=== PATIENT | female | born 1980 | race Hispanic/Latino ===

== ENCOUNTER 2021-09-29 17:48 | Outpatient (CLI) | payer MEDICAID, SELFPAY ==
--- NOTE | 2021-09-29 17:57 | CT_ITS ---
STUDY: CT Abdomen And Pelvis WO/W Contrast Injection 09/29/2021 8:21 PM REASON FOR EXAM: Female, 41 years old. Frequent urination, left flank pain when urinating.PAIN HEMATURIA TECHNIQUE: Transaxial images were obtained without oral contrast, and IV 100mL Isovue-300 intravenous contrast. Individualized dose optimization techniques were used for this CT. COMPARISON: None. FINDINGS: The visualized lung bases are unremarkable. The visualized portions of the heart are within normal limits. Normal liver. Normal gallbladder and extrahepatic biliary system. Normal spleen. Normal pancreas. Normal bilateral adrenal glands. No acute findings of the right kidney. No acute findings of the left kidney. Normal visualized stomach. Normal small intestine. Stool throughout the colon. The appendix is visualized and appears normal. There are no acute findings of the abdominal aorta. Normal inferior vena cava. Subcentimeter mesenteric lymph nodes. There is a dilated left ovarian vein with diffuse varicosities. This can suggest pelvic venous congestion syndrome. There are varices overlying the left ovarian vein may represent pelvic venous congestion syndrome. Normal urinary bladder. Fibroid uterus. Normal abdominal wall. Normal osseous structures. IMPRESSION: (NOT LISTED IN ORDER OF SIGNIFICANCE) Fibroid uterus. There is a dilated left ovarian vein with diffuse varicosities. This can suggest pelvic venous congestion syndrome. Other findings as above. Electronically Signed: Ramu Wellington MD at 20:23 [facility] , CT/CT Abd/Pelvis W/WO Contrast
== END 2021-09-29 23:59 | disposition home or self-care (01) ==
LOC: CT 17:51
PROVIDERS: PCP Nurse Practitioner; Visit Provider Urology
DX: R31.9 Hematuria, unspecified (principal); R10.2 Pelvic and perineal pain
CPT/HCPCS: 74178; Q9967

== ENCOUNTER 2023-02-04 10:52 | Emergency (ER) | payer MEDICAID, SELFPAY ==
[2023-02-04 10:52] VITALS: BP 138/82; PULSE 73; RESP 16; TEMP 36.3; O2SAT 98; BMI 24.7
--- NOTE | 2023-02-04 11:30 | EX.ED.UPPERE ---
HPI <SARAH Sexton - Last Filed: 02/04/23 19:51> History of Present Illness Chief Complaint: Upper Extremity Injury Narrative Narrative: Patient presenting today due to left shoulder pain that she has had for the past 2 months. 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 She reports that at times the pain radiates down her left arm and she has intermittent tingling in her L fingers. She has not seen a provider for this and has not had any imaging done. She has been taking ibuprofen with minimal relief. She denies any injury to the L upper extremity. She denies any history of blood clots. PFSH <SARAH Sexton - Last Filed: 02/04/23 19:51> [facility] Medical History no medical history Home Medications hydrocodone-acetaminophen 5-325mg 5mg-325mg 1 tab PO Q4H PRN PRN Pain 3 days #10 TABLETS 02/04/23 [Rx Last Taken Unknown] Allergy/AdvReac Type Severity Reaction Status Date / Time No Known Allergies Allergy Verified 02/04/23 10:53 Social History Smoking Status: Never smoker ROS <SARAH Sexton - Last Filed: 02/04/23 19:51> ROS ED Constitutional Constitutional ED: Denies chills or fever(s) Cardiovascular Cardiovascular: Denies chest pain Respiratory/Chest Respiratory/Chest: Denies cough or dyspnea Gastrointestinal Gastrointestinal: Denies abdominal pain, nausea or vomiting Musculoskeletal Musculoskeletal: Reports arthralgias and myalgias Integumentary Denies rash Neurologic Neurologic: Reports paresthesias; Denies weakness EXAM <SARAH Sexton - Last Filed: 02/04/23 19:51> Physical Exam Const Vital Signs: 02/04/23 10:52 Temperature 97.4 F L Temperature Source Temporal Pulse Rate 73 Respiratory Rate 16 Blood Pressure 138/82 H Blood Pressure Mean 100 Pulse Ox 98 Oxygen Delivery Method Room Air Positive well nourished, well developed and no apparent distress General Appearance ED: well developed HEENT Reports normocephalic and head/scalp atraumatic Mouth ED: Yes moist mucous membranes normal Eyes PERRL and EOMs intact bilaterally Neck full ROM and supple Chest Wall inspection of chest normal Resp normal respiratory effort and clear to auscultation bilaterally Cardio regular rate and regular rhythm GI soft to palpation, non-tender, non-distended and no masses Back/Spine normal ROM and normal to inspection Extremity normal to inspection and full ROM Extremity Narrative: Generalized pain to palpation to the left shoulder, radial pulses 2+ and equal bilaterally, good capillary refill, sensation intact. Neuro oriented x3, CN's II-XII intact bilaterally, moves all extremities, no focal motor deficits and no sensory deficits noted Sensorium / Orientation: awake and alert Motor Exam: strength 5/5 throughout Psych mental status grossly normal and thought process normal Skin no rashes or lesions noted and no wounds [facility] <SARAH Sexton - Last Filed: 02/04/23 19:51> [facility] Narrative Medical decision making narrative: Patient presenting with left shoulder pain that she has had for the past 2 months. Denies any injury that she is aware of. She has not yet seen a provider for this issue and has not had any imaging performed. X-ray obtained and does not show any fracture or dislocation. Examination is suspicious for rotator cuff involvement, bursitis. She has been given a orthopedic follow-up as well as a short duration of pain medication. She has been given RICE instructions and work restrictions. She will be discharged home in stable condition and is comfortable with plan <Dr. Best Arriaga MD - Last Filed: 02/04/23 12:26> [facility] Treatment and Re-Evaluation Narrative: Seen and evaluated independently and in conjunction with physician criminal legal assistant. Agree with notes above unless documented otherwise. Patient has had pain in her left shoulder for the past 2 months progressively worsening. She is left-hand dominant. She thinks it started while she was doing some heavy lifting. Pain is everywhere in the left shoulder. Overhead movements are the worst. Exam: Normal inspection left shoulder, neurovascular intact distally with some subjective paresthesias in fingers 2, 3, 4. Subacromial tenderness as well as tenderness in the bicipital groove with a positive Yergason. She has pain with every movement including internal rotation, external rotation, forward flexion with a positive speeds sign, and abduction which she can do to about 45 degrees until she has to stop. Good range in short arcs, no excessive warmth. No bony tenderness. Three-view x-ray series of the left shoulder my interpretation negative for any acute bony abnormality, fracture, dislocation. Difficult to rule out impingement syndrome, bicipital tendinitis, possibility of rotator cuff involvement in the differential as well. Follow-up with orthopedics advised. We will give her prescription for pain medications, advised to continue anti-inflammatories and icing, and follow-up with orthopedics. Sling given to use as needed as well as work restrictions for lifting. Discharge Plan Triage Chief Complaint: Upper Extremity Injury ED Midlevel Provider: Mary Odonnell ED Provider: Best Arriaga Dx/Rx/DC Orders Clinical Impression: Left shoulder pain Instructions: ED Bursitis, ED Shoulder Impingement Syndrome Prescriptions: New hydrocodone-acetaminophen 5-325 mg tablet 1 tab PO Q4H PRN PRN (Reason: Pain) 3 Days Qty: 10 0RF Primary Care Provider: Dayton Luke Referrals: Kaley Smith MD [Non-Staff] - Jluis Garcia MD [Med Staff - Active Staff] - 5-7 Days Activity Restrictions/Additional Instructions: Use sling as needed, follow-up with the orthopedic provider I referred you to. Return for any worsening of symptoms. Disposition Disposition: Home, Self Care Discharge Date/Time: 02/04/23 12:35
--- NOTE | 2023-02-04 11:32 | RAD_ITS ---
INDICATION: shoulder pain EXAMINATION/TECHNIQUE: X-RAY - LEFT XR Shoulder 4 VIEWS COMPARISON: FINDINGS: SOFT TISSUES: No soft tissue swelling or gas. No radiopaque foreign body. BONES/JOINTS: No acute fracture or subluxation.. Normal alignment. Preservation of the joint space.. No sclerotic or destructive changes observed. RAD/Shoulder min 2 Views IMPRESSION: Negative. Electronically Signed: Yakelin Gupta MD at 12:33 EDT ,
== END 2023-02-04 12:35 | disposition home or self-care (01) ==
PROVIDERS: Emergency Provider Emergency Medicine; PCP Family Medicine; Visit Provider Emergency Medicine
DX: M25.512 Pain in left shoulder (principal); X50.0XXA Overexertion from strenuous movement or load, initial encounter; Y92.129 Unspecified place in nursing home as the place of occurrence of the external cause
CPT/HCPCS: 73030; 99282; A4216

== ENCOUNTER 2025-04-02 06:05 | Day surgery (SDC) | payer MEDICAID, SELFPAY ==
[2025-04-02] VITALS (10 sets, daily range): BP systolic 94–110; BP diastolic 64–73; PULSE 61–68; RESP 16; TEMP 36.1–36.8; O2SAT 92–99; BMI 26.1
--- OUTSIDE RECORDS SUMMARY | 2025-04-02 06:10 | XMS RPT_ITS | CCD ---
Author Organization [facility]ini[facility] Care Team Providers Care Food Safety Technician Name Role Phone Dayton Bhatia MD Primary Care Provider [phone] DAYTON BHATIA Primary Care Unavailable JONAH ONEAL Attending Unavailable LISA BERMUDEZ Attending Unavailable DAYTON BHATIA Primary Care Unavailable Dayton Bhatia MD Primary Care Provider Dayton Bhatia MD Primary Care Provider [phone] STEPHANE SANDOVAL Referring Unavailable DAYTON BHATIA Primary Care Unavailable STEPHANE SANDOVAL Referring Unavailable DAYTON BHATIA Primary Care Unavailable Carine YEE, Joycelyn Unavailable Dana Mcdowell PA-C Unavailable DAYTON BHATIA Primary Care Unavailable Joycelyn Hawk APRN.CNP Unavailable Dana Mcdowell PA-C Unavailable Dr. Dayton Bhatia MD Primary Care Provider Dr. Dayton Bhatia MD Referring Provider Denny KWONGCDahlia Attending Provider Dahlia Baldwin Attending Unavailable Dayton Bhatia Referring Unavailable Dyaton Bhatia Primary Care Unavailable Angie Blackwell Attending Unavailable Dayton Bhatia Primary Care Unavailable Angie Blackwell Referring Unavailable VITA WAHL Referring Unavailable DAYTON BHATIA A Primary Care Unavailable DAYTON BHATIA A Primary Care Unavailable DAYTON BHATIA Referring Unavailable DAYTON BHATIA A Primary Care Unavailable VITA WAHL Attending Unavailable VITA WAHL Referring Unavailable ANGIE BLACKWELL Attending Unavailable DAYTON BHATIA A Primary Care Unavailable DANA MCDOWELL Attending Unavailable DAYTON BHATIA Primary Care Unavailable DANA MCDOWELL Referring Unavailable DAYTON BHATIA Primary Care Unavailable DANA MCDOWELL Referring Unavailable DAYTON BHATIA Primary Care Unavailable DAYTON BHATIA Primary Care Unavailable ANGIE BLACKWELL Attending Unavailable DANA MCDOWELL Attending Unavailable DAYTON BHATIA Primary Care Unavailable DAYTON BHATIA Primary Care Unavailable DAYTON BHATIA Primary Care Unavailable VITA WAHL Attending Unavailable Allergies Allergy Classification Reported Allergen(s) Allergy Type Date of Onset Reaction(s) Facility (20 sources) meloxicam; Translations: [MELOXICAM] Drug Allergy 2 Swelling, Itching [facility] Work Phone: Comment on above: SWELLING AND ITCHING (20 sources) Naproxen; Translations: [NAPROXEN] Drug Allergy 2 Hives, Swelling, Shortness of Breath [facility] Work Phone: Comment on above: FACIAL SWELLING AND SOB (1 source) meloxicam Drug Allergy 5 [facility] (1 source) Naproxen Drug Allergy 5 [facility] Medications Current Medications Medication Drug Class(es) Dates Sig (Normalized) Sig (Original) ibuprofen 200 mg oral capsule (19 sources) Nonsteroidal Anti-inflammatory Drug Start: 03-23-2025 take 1 capsule by mouth every eight hours as needed for pain Ibuprofen 200 mg capsule Active 200 mg PO Q8H as needed for pain March 23, 2025 12:00am End: 07-30-2023 Ibuprofen 200 mg cap Take by mouth every 6 hours as needed. 0 07/30/2023 Discontinued Comment on above: Take by mouth every 6 hours as needed. metroNIDAZOLE 500 mg oral tablet (2 sources) Nitroimidazole Antimicrobial Start: 02-13-20 End: 02-20-20 take 1 tablet by mouth twice daily metroNIDAZOLE (FLAGYL) 500 mg tablet Indications: BV (bacterial vaginosis) Take 1 tablet by mouth twice daily for 7 days. 14 tablet 0 02/12/2023 02/19/2023 Active Start: 11-08-2021 End: 11-15-2021 take 1 tablet by mouth twice daily metroNIDAZOLE (FLAGYL) 500 mg tablet Take 1 tablet by mouth twice daily for 7 days. 14 tablet 0 11/08/2021 11/15/2021 Comment on above: Take 1 tablet by marii th twice daily for 7 days. predniSONE 20 mg oral tablet (1 source) Start: 03-30-2025 End: 04-02-2025 take 2 tablets by mouth once daily at mealtime predniSONE (DELTASONE) 20 mg tablet Take 2 tablets by mouth once daily for 3 days. Take daily with food. 6 tablet 03/30/2025 04/02/2025 Active Completed/Discontinued Medications Medication Drug Class(es) Dates Sig (Normalized) Sig (Original) acetaminophen 325 mg / HYDROcodone bitartrate 5 mg oral tablet (2 sources) Opioid Agonist Start: 02-04-2023 End: 03-23-2025 Hydrocodone-Acetami nophen 5-325 mg tablet Discontinued 1 {tbl} PO EVERY 4 HOURS NEEDED as needed for Pain 10 3 0 February 04, 2023 March 23, 2025 10:54am Shoulder pain Pain in unspecified shoulder Start: 02-04-2023 take 1 tablet by marii th every four hours as needed Hydrocodone-Acetaminophen Active 1 TABLE T PO EVERY 4 HOURS NEEDED 10 3 February 04, 2023 Acetaminophen / pamabrom (20 sources) End: 06-08-2023 acetaminophen/pamabrom (MIDO L ORAL) Take by mouth as directed. 06/08/2023 Discontinued End: 06-08-2023 acetaminophen/pamabrom (MIDO L ORAL) Take by mouth as directed. 0 06/08/2023 Discontinued acetaminophen/pa mabrom (MIDOL ORAL) Take by mouth as directed. 0 Active Comment on above: Take by mouth as dir ected. acetaminophen/pyrilam /pamabrom (PAMPRIN MULTI-SYMPTOM ORAL) (20 sources) End: 07-30-2023 acetaminophen/pyrilam/gustabo abrom (PAMPRIN MULTI-SYMPTOM ORAL) Take by mouth. 0 07/30/2023 Discontinued acetaminophen/py rilam/pamabrom (PAMPRIN MULTI-SYMPTOM ORAL) Take by mouth. 0 Active Comment on above: Take by mouth. cephalexin 500 mg oral capsule (2 sources) Cephalosporin Antibacterial Start: End: take 1 capsule by mouth four times daily cephALEXin (KEFLEX) 500 mg capsule Indications: Vulvar cyst Take 1 capsule by mouth four times daily for 7 days. 28 capsule 07/31/2024 08/07/2024 cholecalciferol 0.05 mg oral capsule (20 sources) Vitamin D Start: 024 End: 025 take 1 capsule by mouth once daily Cholecalciferol, Vitamin D3, 50 mcg (2,000 unit) cap Take 1 capsule by mouth once daily. 11/29/2023 03/16/2025 Discontinued Comment on above: Take 1 capsule by mo uth once daily. cyclobenzaprine hydrochloride 10 mg oral tablet (1 source) Muscle Relaxant Start: 021 End: take 1 tablet by mouth every eight hours as needed cyclobenzaprine (FLEXERIL) 10 mg tablet Take 1 tablet by mouth three times daily as needed for muscle spasm. 30 tablet 05/18/2021 07/07/2021 Discontinued (Course of therapy completed) L.acidophilus-L.rhamno isabel (FLORAJEN WOMEN) 15 billion cell capsule (14 sources) Start: 023 End: take 1 capsule by mouth once daily L.acidophilus-L.rhamno isabel (FLORAJEN WOMEN) 15 billion cell capsule Indications: BV (bacterial vaginosis) Take 1 capsule by mouth once daily. 30 capsule 3 02/09/2023 07/30/2023 Discontinued Start: 02-09-2023 take 1 capsule by mo uth once daily L.acidophilus-L.rhamnosus (FLORAJEN WOME N) 15 billion cell capsule Indications: BV (bacterial vaginosis) Take 1 capsule by mouth once daily. 30 capsule 3 02/09/2023 Active Comment on above: Take 1 capsule by mo uth once daily. linaclotide 0.145 mg oral capsule (20 sources) Guanylate Cyclase-C Agonist Start: End: take 1 capsule by mouth once daily linaclotide (LINZESS) 145 mcg capsule Indications: Chronic constipation Take 1 capsule by mouth once daily. 30 capsule 2 06/27/2021 07/30/2023 Discontinued Start: 05-18-2021 End: 06-13-2021 take 1 capsule by mouth once daily, then take 6 capsules by mouth in the morning linaclotide (LINZESS) 145 mcg capsule Take 1 capsule by mouth DAILY (6 AM). 30 capsule 1 05/18/2021 06/13/2021 Discontinued Comment on above: Take 1 capsule by mo ut once daily. Problems Active Problems Problem Classification Problem Date Documented Da te Episodic/Chronic Administrative/social admission (8 sources) Patient encounter status; Translations: [Encounter for pre-employment examination] Onset: 03-28-2025 10-31-2021 Episodic Benign neoplasm of uterus (16 sources) Uterine leiomyoma; Translations: [Leiomyoma of uterus, unspecified] Onset: 08-07-2024 Episodic Diabetes mellitus without complication (2 sources) Increased glucose level; Translations: [Other abnormal glucose] Onset: 03-16-2025 03-16-2025 Episodic Endometriosis (1 source) Uterine adenomyosis; Translations: [Endometriosis of uterus] Chronic Genitourinary symptoms and ill-defined conditions (20 sources) Urgent desire to urinate; Translations: [Urgency of urination] Onset: 05-18-2021 05-18-2021 Episodic Immunizations and screening for infectious disease (20 sources) Positive measurement finding; Translations: [Nonspecific reaction to tuberculin skin test without active tuberculosis] Onset: 06-02-2023 06-02-2023 Episodic Inflammatory diseases of female pelvic organs (2 sources) Bacterial vaginosis; Translations: [Acute vaginitis] Episodic Malaise and fatigue (3 sources) Malaise and fatigue; Translations: [Other malaise] Onset: 03-16-2025 Episodic Menopausal disorders (7 sources) Postmenopausal bleeding; Translations: [Postmenopausal bleeding] Onset: 08-07-2024 07-31-2024 Chronic Menstrual disorders (1 source) Secondary amenorrhea; Translations: [Secondary amenorrhea] Chronic Other female genital disorders (2 sources) Abnormal uterine bleeding; Translations: [Other specified abnormal uterine and vaginal bleeding] Chronic Other female genital disorders (1 source) Deep pain on intercourse; Translations: [Deep dyspareunia] Chronic Other female genital disorders (20 sources) Pain in female genitalia on intercourse; Translations: [Unspecified dyspareunia] Onset: 08-14-2023 08-14-2023 Chronic Other female genital disorders (2 sources) Abnormal vaginal bleeding; Translations: [Abnormal uterine and vaginal bleeding, unspecified] 03-16-2025 Chronic Other female genital disorders (1 source) Abnormal uterine and vaginal bleeding, unspecified; Translations: [Abnormal vaginal bleeding] Onset: 03-16-2025 Chronic Other female genital disorders (1 source) Cyst of vulva; Translations: [Vulvar cyst] 07-31-2024 Episodic Other gastrointestinal disorders (20 sources) Constipation; Translations: [Other constipation] 07-19-2021 Episodic Other non-traumatic joint disorders (2 sources) Shoulder pain; Translations: [Pain in unspecified shoulder] 02-04-2023 Episodic Other non-traumatic joint disorders (2 sources) Pain in left shoulder; Translations: [Left shoulder pain] 02-04-2023 Episodic Other nutritional; endocrine; and metabolic disorders (1 source) Unintentional weight gain; Translations: [Abnormal weight gain] Episodic Other nutritional; endocrine; and metabolic disorders (1 source) Weight gain; Translations: [Abnormal weight gain] 11-29-2023 Episodic Other nutritional; endocrine; and metabolic disorders (1 source) Weight increased; Translations: [Abnormal weight gain] 03-16-2025 Episodic Other nutritional; endocrine; and metabolic disorders (1 source) Abnormal weight gain; Translations: [Weight gain] Onset: 03-16-2025 Episodic Other screening for suspected conditions (not mental disorders or infectious disease) (20 sources) Increased prolactin level; Translations: [Other specified abnormal findings of blood chemistry] Onset: 05-18-2021 Episodic Poisoning by nonmedicinal substances (1 source) Wound finding; Translations: [Toxic effect of venom of other arthropod, accidental (unintentional), initial encounter] 03-30-2025 Episodic Residual codes; unclassified (3 sources) Family history of malignant neoplasm of ovary; Translations: [Family history of malignant neoplasm of ovary] Episodic Residual codes; unclassified (1 source) Family history of malignant neoplasm of ovary; Translations: [Family history of ovarian cancer] Onset: 01-01-2025 Episodic Screening and history of mental health and substance abuse codes (2 sources) Encounter for screening for depression; Translations: [Encounter for screening examination for other mental health and behavioral disorders] Onset: 03-16-2025 Episodic Unclassified (1 source) APPOINTMENT CANCELLED Unclassified (2 sources) Latent tuberculosis; Translations: [TB lung, latent] Onset: 11-29-2023 Unclassified (1 source) Patient encounter status 03-16-2025 Unclassified (1 source) Pre-Op Visit Onset: 03-27-2025 Past or Other Problems Problem Classification Problem Date Documented Date Episodic/Chronic Abdominal pain (20 sources) Pain in female pelvis; Translations: [Pelvic and perineal pain] Onset: 08-14-2023 Episodic Other diseases of bladder and urethra (20 sources) Urethral diverticulum; Translations: [Urethral diverticulum] Onset: 05-18-2021 05-18-2021 Episodic Other female genital disorders (10 sources) Cyst of uterine adnexa; Translations: [Other noninflammatory disorders of ovary, fallopian tube and broad ligament] Onset: 08-07-2024 08-07-2024 Episodic Other non-traumatic joint disorders (20 sources) Instability of joint of right ankle; Translations: [Other instability, right ankle] Onset: 04-26-2022 Episodic Sprains and strains (20 sources) Sprain of talofibular ligament of right ankle; Translations: [Sprain of other ligament of right ankle, initial encounter] Onset: 04-26-2022 Episodic Unclassified (1 source) Preprocedural examination done 03-30-2025 Results Test Name Value Interpretation Reference Range Facility [facility] 03-30-2025 [facility] Office [facility] ) FRANNY ZACARIAS ([id number]) 1980 F Date Time Provider Department 03/30/25 9:40 AM DANA MCDWOELL [facility] During your visit today, we recorded the following information about you: Temperature Pulse Respiration Blood pressure 98.9 degrees 63/minute 16/minute 112/76 Dana Mcdowell PA-C 03/30/2025 10:47 AM Signed Chief Complaint Patient presents with: Established Patient HPI Franny Zacarias is a 45 year old female who presents here today for ECG for preop. Patient was recently seen by myself for preop visit. During that exam, patient forgot to mention an episode of Dyspnea while walking her dog. She told nurse on phone call and I asked for patient to return so we can discuss. Patient reports that the episode occurred on the same day that she had donated blood earlier in the day. She has not had any recurrance since then. Denies CP or near syncopal episodes. TB Skin Test Reaction: - Diagnosed with latent TB a year ago; recent chest X-ray was normal. 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 - Developed severe itching immediately after the test, which worsened after a bee sting yesterday. The bee sting is is same area as the TB skin test - Denies taking Benadryl due to drowsiness side effects. - Describes the test site as really painful and tender to touch. - Denies cough or dyspnea. Anemia: - Recent hemoglobin levels noted to be low. - Experienced tingling in fingers after blood donation, leading to an ER visit. - No further episodes of dyspnea reported after the initial incident post-blood donation. Past medical history, appointments, medications, allergies reviewed. Previous Medical History PAST MEDICAL HISTORY[1] Previous Surgical History PAST SURGICAL HISTORY Procedure Laterality Date COLONOSCOPY SCREENING 08/2021 Family History FAMILY HISTORY[2] Patient Allergies ALLERGIES[3] Current Medications Meds Previous to this Encounter[4] Social History SOCIAL HISTORY[5] Review of Symptoms REVIEW OF SYSTEMS SEE HPI EXAM: BP 112/76 (BP Site: Right Arm, BP Position: Sitting, BP Cuff Size: Regular Adult) Pulse 63 Temp 37.2 ?C (98.9 ?F) (Left Tympanic) Resp 16 LMP 05/08/2022 SpO2 97% General Appearance: Well appearing, alert, in no acute distress, well-hydrated, well nourished.. Skin: +TB skin test reaction with surrounding swelling noted. Patient notes tenderness near site of the TB reaction.. Lungs: Lungs clear to auscultation. No wheezing, rhonchi, rales.. Heart: RRR without murmur, gallop, or rubs. No ectopy. Health Maintenance List Hepatitis C Screening Never done Colorectal Cancer Screening due on 01/22/2024 Mammogram Screening due on 03/24/2025 Influenza Vaccine(1) due on 04/20/2025 Depression Screening due on 03/16/2026 Anxiety Screening due on 03/16/2026 Diabetes Screening due on 03/16/2028 Cervical Cancer Screening due on 07/31/2029 Lipid Screening due on 03/16/2030 DTaP,Tdap,Td Vaccine(2 - Td or Tdap) due on 06/14/2033 Hepatitis B Vaccine Completed HIV Screening Completed Data reviewed ECG: NSR Assessment and Plan 1. Preop examination (Z01.818) 2. Fibroids, submucosal (D25.0) 3. Abnormal vaginal bleeding (N93.9) - EKG reviewed and found to be normal. - Mild anemia noted, but not significant enough to delay surgery. - Recent fatigue and dyspnea on exertion likely related to recent blood donation and baseline anemia. - Proceed with surgery as planned on the . 4. 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 - Recent PPD test performed for nursing school requirements; educated patient that PPD will always be positive due to known latent TB. - Advised patient to avoid future PPD tests and rely on chest X-ray for active TB screening. - Recommended follow-up with infectious disease specialist for annual check-in. 5. Local reaction to insect sting, accidental or unintentional, initial encounter (T63.481A) - Localized swelling and tenderness at the site of the PPD test, likely exacerbated by recent bee sting. - Start prednisone; advised to take Benadryl at home and monitor for improvement. - Advised to go to the ER if symptoms worsen or do not improve within 4-8 hours. - DDx includes abscess/cellulitis, but given history, suspect immune reaction. Dana Mcdowell PA-C Recording using Retrieve software for draft documentation of the visit was discussed with the patient/authorized factory representative; all questions welcomed and answered. Patient/authorized factory representative agreed to proceed [1] Past Medical History: No date: Other constipation 08/20/2001: Solitary cyst of breast Comment: right breast No date: TB lung, latent 05/18/2021: Urethral diverticulum Comment: Seeing ur (more content not included)... Normal [facility] [id number] 03-30-2025 ECG01 Ventricular Rate : 6 2 BPM Atrial Rate : 62 BPM P-R Interval : 146 ms QRS Duration : 96 ms Q-T Interval : 404 ms QTC Calculation(Bazett) : 410 ms Calculated P [place] : 7 degrees Calculated R [place] : -21 degrees Calculated T [place] : 3 degrees NORMAL SINUS RHYTHM LOW VOLTAGE QRS, CONSIDER PULMONARY DISEASE, PERICARDIAL EFFUSION, OR NORMAL VARIANT BORDERLINE ECG Confirmed by MD LOVE QARAB ([id number]) on 03/31/2025 9:53:13 AM NAME : FRANNY ZACARIAS PID : [id number] : 1980 Gender : Female Race : ORD : Procedure Date : Mar 30 2025 10:12:29 Edit Date : Mar 31 2025 09:53:14 Diagnosis: NORMAL SINUS RHYTHM LOW VOLTAGE QRS, CONSIDER PULMONARY DISEASE, PERICARDIAL EFFUSION, OR NORMAL VARIANT BORDERLINE ECG Confirmed by MD LOVE QARAB ([id number]) on 03/31/2025 9:53:13 AM Test Reason : Location : 136 : [place] Overread By : MD LOVE QARAB Edited By : MD LOVE QARAB Referred By : DANA MCDOWELL Acquired by : Walker Escobedo [facility] Office Visit Reporton 2024 Office Visit Report [facility] [address] [address] OFFICE VISIT Date of Service: 03/28/25 MR#: [id number] Acct: [id number] Patient: FRANNY ZACARIAS Rep #: [id number] : 1980 Provider: YAHAIRA Baldwin Age/Sex: 45/F Location: [facility] Status: Signed Intake Vital Signs 02/04/23 10:52 Height 5 ft 2 in Intake Visit Reasons: 1 STEP TB TEST Chief Complaint: ppd Is patient in pain?: No Allergies meloxicam Allergy (Intermediate, Verified 03/28/25 08:50) Other naproxen (From Naprosyn) Allergy (Intermediate, Verified 03/28/25 08:50) Other Office Procedures PPD Procedure TB Med Used: Tuberculin PPD 5 tub. unit/0.1 mL intradermal injection solution was administered Lot number: [id number] Bleacher Operator: sanofi pasteur date: 09/20/27 PPD Location: Left forearm Date PPD Placed: 03/28/25 Time PPD Placed: 08:45 PPD Placed By: Natali Felix Assessment and Plan Assessment and Plan Orders: Orders POC TB PPD SKIN Test (Clinic) Today Z02.1 - Encounter for pre-employment examination 03/28/25 1221 Date Dahlia Farmington NP-C Cosigner Signature: Date (if applicable) CC: [facility] CNOVon 03-27-2025 CNOV Office Visit ([facility] ) FRANNY ZACARIAS ([id number]) 1980 F Date Time Provider Department 03/27/25 2:00 PM ANGIE BLACKWELL During your visit today, we recorded the following information about you: Pulse Blood pressure Weight Height 72/minute 98/70 65.8 kg 1.56 m Angie Blackwell MD 03/27/2025 5:28 PM Signed DATE OF SERVICE: March 27, 2025 PROBLEM: PMB, fibroid uterus DIAGNOSIS: as above PAST SURGICAL HISTORY: PAST SURGICAL HISTORY Procedure Laterality Date COLONOSCOPY SCREENING 08/2021 PAST MEDICAL HISTORY: PAST MEDICAL HISTORY Diagnosis Date Other constipation Solitary cyst of breast 08/20/2001 right breast TB lung, latent Urethral diverticulum 05/18/2021 Seeing uro Urinary urgency 05/18/2021 SUBJECTIVE: Has had post menopausal spotting SOCIAL HISTORY: Social History Tobacco Use Smoking status: Never Smokeless tobacco: Never Vaping Use Vaping status: Never Used Substance Use Topics Alcohol use: Not Currently Comment: rare Drug use: Never ALLERGIES Allergen Reactions Naproxen Hives, Swelling, Shortness of Breath Mobic [Meloxicam] Swelling, Itching No current outpatient medications on file prior to visit. No current facility-administered medications on file prior to visit. OBJECTIVE: VITALS: BP 98/70 Pulse 72 Ht 156 cm (5' 1.42) Wt 65.8 kg (145 lb) LMP 05/08/2022 SpO2 98% BMI 27.03 kg/m? HEENT: Normocephalic, atraumatic, Mucus membranes moist without lesions. SKIN: No lesions. CHEST: Clear to auscultation. No wheezes or rales. Good air exchange. HEART: Regular rate and rhythm No S3 or S4. No gallops or rubs. BACK: Nontender. ABDOMEN: Soft, non-tender, non-distended, no masses, no hepatosplenomegaly. LOWER EXTREMITIES: There was no pitting edema. ASSESSMENT: pre op PLAN: 1) Discussed r/b/a hysteroscopy, DANDC, fibroid resection in detail. The rationale for the proposed surgery was discussed in addition to risks, benefits, and alternatives. General pre- and post-operative care was reviewed. Questions were answered. After discussion, the patient indicated a desire to proceed with the planned surgery. Angie Blackwell DO Medical Decision Making: Problems: Moderate: 1+ chronic illnesses with change Risk: Moderate: Decision on minor surgery w/ risk factors Medical Decision Making Level: 4 - Moderate Allergies As of Date: 03/27/2025 Noted Allergy Reaction NAPROXEN 04/10/2022 4 - Hives 7 - Swelling 12 - Shortness of Breath MOBIC (MELOXICAM) 04/10/2022 7 - Swelling 9 - Itching Date Reviewed: 03/27/2025 Reviewed by: Isaac Fofana LPN - Fully Assessed Reason for Visit: Pre-Op Visit [1235] Primary Visit Diagnosis:Submucous leiomyoma of uterus [D25.0] Other Visit Diagnosis:PMB (postmenopausal bleeding) [N95.0] Problem List As Of Date 03/27/2025 Noted Resolved Other constipation [K59.09] Urethral diverticulum [N36.1] 05/18/2021 Urinary urgency [R39.15] 05/18/2021 Screening for diabetes mellitus [Z13.1] 05/18/2021 Ankle instability, right [M25.371] 04/26/2022 Sprain of anterior talofibular ligament of righ*04/26/2022 TB lung, latent [Z22.7] 06/05/2023 Urinary frequency [R35.0] 08/14/2023 Microscopic hematuria [R31.29] 08/14/2023 Nocturia [R35.1] 08/14/2023 Pelvic pressure in female [R10.2] 08/14/2023 Dyspareunia in female [N94.10] 08/14/2023 Fibroids, submucosal [D25.0] 08/07/2024 Paratubal cyst [N83.8] 08/07/2024 Disposition: Return in about 2 weeks (around 04/10/2025) for post op appointment SW. Follow-up and Disposition History for Encounter Date Provider Department Center 03/27/2025 [id number] BLACKWELL [facility] Encounter Status:Closed by ANGIE BLACKWELL on 03/27/25 Normal [facility] HISTORY PHYSICALon HISTORY PHYSICAL HNO ID: [id number] Author: ANGIE BLACKWELL MD Service: ? Author Type: Physician Type: H&P Filed: 03/27/2025 17:28 Note Text: DATE OF SERVICE: March 27, 2025 PROBLEM: PMB, fibroid uterus DIAGNOSIS: as above PAST SURGICAL HISTORY: PAST SURGICAL HISTORY Procedure Laterality Date COLONOSCOPY SCREENING 08/2021 PAST MEDICAL HISTORY: PAST MEDICAL HISTORY Diagnosis Date Other constipation Solitary cyst of breast 08/20/2001 right breast TB lung, latent Urethral diverticulum 05/18/2021 Seeing uro Urinary urgency 05/18/2021 SUBJECTIVE: Has had post menopausal spotting SOCIAL HISTORY: Social History Tobacco Use Smoking status: Never Smokeless tobacco: Never Vaping Use Vaping status: Never Used Substance Use Topics Alcohol use: Not Currently Comment: rare Drug use: Never ALLERGIES Allergen Reactions Naproxen Hives, Swelling, Shortness of Breath Mobic [Meloxicam] Swelling, Itching No current outpatient medications on file prior to visit. No current facility-administered medications on file prior to visit. OBJECTIVE: VITALS: BP 98/70 Pulse 72 Ht 156 cm (5' 1.42) Wt 65.8 kg (145 lb) LMP 05/08/2022 SpO2 98% BMI 27.03 kg/m? HEENT: Normocephalic, atraumatic, Mucus membranes moist without lesions. SKIN: No lesions. CHEST: Clear to auscultation. No wheezes or rales. Good air exchange. HEART: Regular rate and rhythm No S3 or S4. No gallops or rubs. BACK: Nontender. ABDOMEN: Soft, non-tender, non-distended, no masses, no hepatosplenomegaly. LOWER EXTREMITIES: There was no pitting edema. ASSESSMENT: pre op PLAN: 1) Discussed r/b/a hysteroscopy, DANDC, fibroid resection in detail. The rationale for the proposed surgery was discussed in addition to risks, benefits, and alternatives. General pre- and post-operative care was reviewed. Questions were answered. After discussion, the patient indicated a desire to proceed with the planned surgery. Angie Blackwell, Medical Decision Making: Problems: Moderate: 1+ chronic illnesses with change Risk: Moderate: Decision on minor surgery w/ risk factors Medical Decision Making Level: 4 - Moderate Normal [facility] 03-17-2025 [facility] Telephone [facility] FRANNY ZACARIAS ([id number]) 1980 F Date Time Provider Department 03/17/25 DANA MCDOWELL [facility] During your visit today, we recorded the following information about you: Dana Mcdowell PA-C 03/17/2025 9:33 AM Signed Patient is cleared for surgery. I will forward everything to Dr. Blackwell. Patient should contact their office to schedule. Let her know that her labs are overall okay. Her thyroid is normal. She is mildly anemic. Would recheck this in 2 weeks with additional labs. Her thyroid labs are normal. There's a couple labs I'm waiting for results on yet and will if abnormal. We can also go into more detail at a future appointment after her surgery. DANIELLA Alanis Sherill A, LPN 03/17/2025 9:48 AM Signed Left message for pt to contact office. FAHEEM Fuentes Krystle, RN 03/17/2025 12:05 PM Signed Patient calls and notified of results and providers instructions. Patient verbalizes understanding. Patient reports that she is a little concerned with the Shortness of Breath that she is having. Reports that it occurs when she is walking the dog up hill with some burning to the center of the chest. Resolves when returns to walking on flat service. Reports it feels like when you have ran a long distance at a high speed. Patient has history of heart burn which she discussed at OV yesterday. Not seeing any notes in regards to patient discussing Shortness of Breath. GREG Martinez Rayanne, PA-C 03/17/2025 1:15 PM Signed She didn't bring this up to me during visit. Specifically denied shortness of breath and chest pain on my ROS. She'll need another preop appointment for us to do ECG And consider any other testing prior to surgery. DANIELLA Alanis Amanda, RN 03/17/2025 1:44 PM Signed Called and left a voicemail for the Patient to call back and ask for a nurse to receive the providers message. GREG Taylor Sherill A, LPN 03/19/2025 2:36 PM Signed Left additional message for pt to contact office. Also sent pt a message via to contact office. FAHEEM Fuentes Barbara, RN 03/27/2025 3:20 PM Signed Pt returning the call. Pt states she only had the episode she reported to the nurse once and it occurred about 2 days after she saw Dana Mcdowell. It has not occurred again and she has walked the dog up that same hill 4-5 times since then without any difficulty. Pt booked for follow up appt this Sunday the for EKG and talk with Dana regarding this. Pt states she is supposed to have her surgery on the . Allergies As of Date: 03/17/2025 Noted Allergy Reaction NAPROXEN 04/10/2022 4 - Hives 7 - Swelling 12 - Shortness of Breath MOBIC (MELOXICAM) 04/10/2022 7 - Swelling 9 - Itching Date Reviewed: 03/16/2025 Reviewed by: Pamella Rosado LPN - Fully Assessed Reason for Visit: Results [95] Primary Visit Diagnosis:Anemia, unspecified type [D64.9] Order(s):COMPLETE BLOOD COUNT AND DIFFERENTIAL [SQCBCDIF] Order #: [id number] FUTURE IRON AND TIBC [SQIRON] Order #: [id number] FUTURE FOLATE, SERUM [SQSERFOL] Order #: [id number] FUTURE FERRITIN [SQFERR] Order #: [id number] FUTURE VITAMIN B12 [SQB12] Order #: [id number] FUTURE Problem List As Of Date 03/17/2025 Noted Resolved Other constipation [K59.09] Urethral diverticulum [N36.1] 05/18/2021 Urinary urgency [R39.15] 05/18/2021 Screening for diabetes mellitus [Z13.1] 05/18/2021 Ankle instability, right [M25.371] 04/26/2022 Sprain of anterior talofibular ligament of righ*04/26/2022 TB lung, latent [Z22.7] 06/05/2023 Urinary frequency [R35.0] 08/14/2023 Microscopic hematuria [R31.29] 08/14/2023 Nocturia [R35.1] 08/14/2023 Pelvic pressure in female [R10.2] 08/14/2023 Dyspareunia in female [N94.10] 08/14/2023 Fibroids, submucosal [D25.0] 08/07/2024 Paratubal cyst [N83.8] 08/07/2024 Encounter Status:Closed by INNA JUNIOR on 03/27/25 Normal [facility] CBC W Auto Differential pane l (Bld)on 03-16-2025 Basophils (Bld) [#/Vol] 0.03 10*3/uL [facility] Basophils/100 WBC (Bld) 0.7 % [facility] Differential cell count method Nom (Bld) Auto [facility] Eosinophils (Bld) [#/Vol] 0.18 10*3/uL [facility] Eosinophils/100 WBC (Bld) 4 % [facility] Erythrocyte distribution width (RBC) [Ratio] 12.5 % 11.5 - 15.0 % [facility] Hematocrit (Bld) [Volume fraction] 34.3 % Low 36.0 - 46.0 % [facility] Hemoglobin (Bld) [Mass/Vol] 11.2 g/dL Low 11.5 - 15.5 g/dL [facility] Immature granulocytes (Bld) [#/Vol] [facility] Immature granulocytes/100 WBC (Bld) 0 % [facility] Interpretation and review of laboratory results Abnormal [facility] Lymphocytes (Bld) [#/Vol] 1.46 10*3/uL [facility] Lymphocytes/100 WBC (Bld) 32.7 % [facility] MCH (RBC) [Entitic mass] 29.9 pg 26.0 - 34.[address] [facility] MCHC (RBC) [Mass/Vol] 32.7 g/dL 30.5 - 36.0 g/dL [facility] MCV (RBC) [Entitic vol] 91.7 fL 80.0 - 100.[address] [facility] Monocytes (Bld) [#/Vol] 0.29 10*3/uL [facility] Monocytes/100 WBC (Bld) 6.5 % [facility] Neutrophils (Bld) [#/Vol] 2.5 10*3/uL [facility] Neutrophils/100 WBC (Bld) 56.1 % [facility] Nucleated RBC (Bld) [#/Vol] [facility] Nucleated RBC/100 WBC (Bld) [Ratio] 0 % /[address] [facility] Platelet mean volume (Bld) [Entitic vol] 10.8 fL 9.0 - 12.[address] [facility] Platelets (Bld) [#/Vol] 320 10*3/uL [facility] RBC (Bld) [#/Vol] 3.74 10*6/uL Low 3.90 - 5.2 0 m/uL [facility] WBC (Bld) [#/Vol] 4.46 10*3/uL [facility] Basophils (Bld) [#/Vol] 0.03 10*3/uL Normal <0.11 [facility] Comment on above: Order Comment: Speci men Type: BLOOD SPECIMENOrdering Facility: [facility] Address: [address] [place] [address] Performed By: #### 5 7021-8 ####[facility] LABCLIA [id number] [address], [facility] [place] Basophils/100 WBC (Bld) 0.7 % Normal [facility] Comment on above: Order Comment: Speci men Type: BLOOD SPECIMENOrdering Facility: [facility] Address: [address] [place] [address] Performed By: #### 5 7021-8 ####[facility] LABCLIA [id number] [address], [place] [address] [place] Differential cell count method Nom (Bld) Auto Normal [facility] Comment on above: Order Comment: Speci men Type: BLOOD SPECIMENOrdering Facility: [facility] Address: [address] [place] [address] Performed By: #### 5 7021-8 ####[facility] LABCLIA [id number] [address], [place] [address] [place] Eosinophils (Bld) [#/Vol] 0.18 10*3/uL Normal <0.46 [facility] Comment on above: Order Comment: Speci men Type: BLOOD SPECIMENOrdering Facility: [facility] Address: [address] [place] [address] Performed By: #### 5 7021-8 ####[facility] LABCLIA [id number] [address], [facility] [place] Eosinophils/100 WBC (Bld) 4.0 % Normal [facility] Comment on above: Order Comment: Speci men Type: BLOOD SPECIMENOrdering Facility: [facility] Address: [address] [place] [address] Performed By: #### 5 7021-8 ####[facility] LABCLIA [id number] [address] [place] [address] [place] Erythrocyte distribution width (RBC) [Ratio] 12.5 % Normal 11.5-15.0 [facility] Comment on above: Order Comment: Speci men Type: BLOOD SPECIMENOrdering Facility: [facility] Address: [address] [place] [address] Performed By: #### 5 7021-8 ####[facility] LABCLIA [id number] [place] [address] [place] Hematocrit (Bld) [Volume fraction] 34.3 % Low 36.0-46.0 [facility] Comment on above: Order Comment: Speci men Type: BLOOD SPECIMENOrdering Facility: [facility] Address: [address] [place] [address] Performed By: #### 5 7021-8 ####[facility] LABIA [id number] [place] [address] [place] Hemoglobin (Bld) [Mass/Vol] 11.2 g/dL Low 11.5-15.5 [facility] Comment on above: Order Comment: Speci men Type: BLOOD SPECIMENOrdering Facility: [facility] Address: [address] [place] [address] Performed By: #### 5 7021-8 ####[facility] LABIA [id number] [place] [address] [place] Immature granulocytes (Bld) [#/Vol] 10*3/uL Normal <0.10 [facility] Comment on above: Order Comment: Speci men Type: BLOOD SPECIMENOrdering Facility: [facility] Address: [address] [place] [address] Performed By: #### 5 7021-8 ####[facility] LABIA [id number] [place] [address] [place] Immature granulocytes/100 WBC (Bld) 0.0 % Normal [facility] Comment on above: Order Comment: Speci men Type: BLOOD SPECIMENOrdering Facility: [facility] Address: [address] [place] [address] Performed By: #### 5 7021-8 ####[facility] LABCLIA [id number] [place] [address] [place] Lymphocytes (Bld) [#/Vol] 1.46 10*3/uL Normal 1.00-4.00 [facility] Comment on above: Order Comment: Speci men Type: BLOOD SPECIMENOrdering Facility: [facility] Address: [address] [place] [address] Performed By: #### 5 7021-8 ####[facility] LABCLIA [id number] [place] [address] [place] Lymphocytes/100 WBC (Bld) 32.7 % Normal [facility] Comment on above: Order Comment: Speci men Type: BLOOD SPECIMENOrdering Facility: [facility] Address: [address] [place] [address] Performed By: #### 5 7021-8 ####[facility] LABCLIA [id number] [place] [address] [place] MCH (RBC) [Entitic mass] 29.9 pg Normal 26.0-34.0 [facility] Comment on above: Order Comment: Speci men Type: BLOOD SPECIMENOrdering Facility: [facility] Address: [address] [place] [address] Performed By: #### 5 7021-8 ####[facility] LABCLIA [id number] [place] [id number] [place] MCHC (RBC) [Mass/Vol] 32.7 g/dL Normal 30.5-36.0 [facility] Comment on above: Order Comment: Speci men Type: BLOOD SPECIMENOrdering Facility: [facility] Address: [address] [place] [address] Performed By: #### 5 7021-8 ####[facility] LABCLIA [id number] [place] [id number] [place] MCV (RBC) [Entitic vol] 91.7 fL Normal 80.0-100.0 [facility] Comment on above: Order Comment: Speci men Type: BLOOD SPECIMENOrdering Facility: [facility] Address: [address] [place] [address] Performed By: #### 5 7021-8 ####[facility] LABCLIA [id number] [place] [address] [place] Monocytes (Bld) [#/Vol] 0.29 10*3/uL Normal <0.87 [facility] Comment on above: Order Comment: Speci men Type: BLOOD SPECIMENOrdering Facility: [facility] Address: [address] [place] [address] Performed By: #### 5 7021-8 ####[facility] LABCLIA [id number] [place] [address] [place] Monocytes/100 WBC (Bld) 6.5 % Normal [facility] Comment on above: Order Comment: Speci men Type: BLOOD SPECIMENOrdering Facility: [facility] Address: [address] [place] [address] Performed By: #### 5 7021-8 ####[facility] LABCLIA [id number] [place] [address] [place] Neutrophils (Bld) [#/Vol] 2.50 10*3/uL Normal 1.45-7.50 [facility] Comment on above: Order Comment: Speci men Type: BLOOD SPECIMENOrdering Facility: [facility] Address: [address] [place] [address] Performed By: #### 5 7021-8 ####[facility] LABCLIA [id number] [place] [address] [place] Neutrophils/100 WBC (Bld) 56.1 % Normal [facility] Comment on above: Order Comment: Speci men Type: BLOOD SPECIMENOrdering Facility: [facility] Address: [address] [place] [address] Performed By: #### 5 7021-8 ####[facility] LABCLIA [id number] [place] [address] [place] Nucleated RBC (Bld) [#/Vol] 10*3/uL Normal <0.01 [facility] Comment on above: Order Comment: Speci men Type: BLOOD SPECIMENOrdering Facility: [facility] Address: [address] [place] [address] Performed By: #### 5 7021-8 ####[facility] LABCLIA [id number] [place] [address] [place] Nucleated RBC/100 WBC (Bld) [Ratio] 0.0 /100 WBC Normal [facility] Comment on above: Order Comment: Speci men Type: BLOOD SPECIMENOrdering Facility: [facility] Address: [address] [place] [address] Performed By: #### 5 7021-8 ####[facility] LABIA [id number] [place] [address] [place] Platelet mean volume (Bld) [Entitic vol] 10.8 fL Normal 9.0-12.7 [facility] Comment on above: Order Comment: Speci men Type: BLOOD SPECIMENOrdering Facility: [facility] Address: [address] [place] [address] Performed By: #### 5 7021-8 ####[facility] LABCLIA [id number] [place] [id number] [place] Platelets (Bld) [#/Vol] 320 10*3/uL Normal 150-400 [facility] Comment on above: Order Comment: Speci men Type: BLOOD SPECIMENOrdering Facility: [facility] Address: [address] [place] [address] Performed By: #### 5 7021-8 ####[facility] LABCLIA [id number] [place] [address] [place] RBC (Bld) [#/Vol] 3.74 10*6/uL Low 3.90-5.20 [facility] Comment on above: Order Comment: Speci men Type: BLOOD SPECIMENOrdering Facility: [facility] Address: [address] [place] [address] Performed By: #### 5 7021-8 ####[facility] [id number] [place] [address] [place] WBC (Bld) [#/Vol] 4.46 10*3/uL Normal 3.70-11.00 [facility] Comment on above: Order Comment: Speci men Type: BLOOD SPECIMENOrdering Facility: [facility] Address: [address] [place] [address] Performed By: #### 5 7021-8 ####[facility] [id number] [address] [place] CNOVon 03-16-2025 CNOV Office Visit (FAMPWS ) FRANNY ZACARIAS ([id number]) 1980 F Date Time Provider Department 03/16/25 9:40 AM DANA MCDOWELL [facility] During your visit today, we recorded the following information about you: Temperature Pulse Respiration Blood pressure 97.6 degrees 64/minute 16/minute 110/76 Weight 66.2 kg Dana Mcdowell PA-C 03/17/2025 1:22 PM Addendum Chief Complaint Patient presents with: Pre-Op Exam HPI Franny Ortiz Rell is a 45 year old female who presents here today for preop exam. Pre-Operative Exam: - Will be scheduled for hysteroscopy, DANBRIA, and fibroid resection with Dr. Blackwell. - History of abnormal vaginal bleeding x2 episodes, prompting evaluation by Dr. Blackwell. - Denies cardiac history, chest pain, or palpitations. - Denies significant pulmonary history, dyspnea, cough, or abnormal sputum production. - Denies nausea, emesis, or urinary concerns. - Reports frequent heartburn, attributed to high coffee consumption. - Reports weight gain despite a healthy diet; requests thyroid function testing. - Reports fatigue, particularly around 1400, and hair loss. - Denies fever. - Reports worsening vision. - Denies hearing or sinus issues. 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 - No recent chest X-ray. Last 10 Encounter Wt Readings: Date: Wt: 03/16/2025 66.2 kg (146 lb) 03/05/2025 61.2 kg (135 lb) 01/01/2025 66 kg (145 lb 6.4 oz) 08/27/2024 65.6 kg (144 lb 9.6 oz) 07/31/2024 64.9 kg (143 lb) 02/07/2024 63.8 kg (140 lb 10.5 oz) 11/29/2023 61.7 kg (136 lb) 11/07/2023 61.2 kg (135 lb) 07/27/2023 63.5 kg (140 lb) 07/05/2023 62.6 kg (138 lb) Past medical history, appointments, medications, allergies reviewed. Previous Medical History PAST MEDICAL HISTORY Diagnosis Date Other constipation Solitary cyst of breast 08/20/2001 right breast Urethral diverticulum 05/18/2021 Seeing uro Urinary urgency 05/18/2021 Previous Surgical History PAST SURGICAL HISTORY Procedure Laterality Date COLONOSCOPY SCREENING 08/2021 Family History FAMILY HISTORY Problem Relation Age of Onset Cancer Mother ovarian cancer w/ mets; Cervical Cancer Mother Hypertension Paternal Grandmother Hyperlipidemia Paternal Grandmother other (other) Paternal Grandmother pre-diabetes Patient Allergies ALLERGIES Allergen Reactions Naproxen Hives, Swelling, Shortness of Breath Mobic [Meloxicam] Swelling, Itching Current Medications Current Outpatient Medications on File Prior to Visit Medication Sig Cholecalciferol, Vitamin D3, 50 mcg (2,000 unit) cap Take 1 capsule by mouth once daily. (Patient not taking: Reported on 07/31/2024) No current facility-administered medications on file prior to visit. Social History Social History Tobacco Use Smoking status: Never Smokeless tobacco: Never Vaping Use Vaping status: Never Used Substance Use Topics Alcohol use: Not Currently Comment: rare Drug use: Never Review of Symptoms REVIEW OF SYSTEMS GENERAL: No weight loss, malaise or fevers HEENT: Negative for frequent or significant headaches, No changes in hearing or vision, no nose bleeds or other nasal problems NECK: Negative for lumps, goiter, pain and significant neck swelling RESPIRATORY: Negative for cough, hemoptysis, wheezing, COPD, dyspnea or shortness of breath CARDIOVASCULAR: Negative for chest pain, leg swelling, hypertension, CHF or palpitations GI: No nausea, vomiting, or diarrhea : No history of dysuria, frequency or incontinence SEE HPI EXAM: BP 110/76 (BP Site: Left Arm, BP Position: Sitting, BP Cuff Size: Regular Adult) Pulse 64 Temp 36.4 ?C (97.6 ?F) Resp 16 Wt 66.2 kg (146 lb) LMP 05/08/2022 SpO2 98% BMI 25.86 kg/m? General Appearance: Well appearing, alert, in no acute distress, well-hydrated, well nourished.. Head: Normocephalic, no masses, lesions, tenderness or abnormalities. Eyes: Anicteric sclera. Pupils are equally round and reactive to light. Extraocular movements are intact. . Ears: External ears normal, canals clear. Nose/Sinuses: Nares normal, septum midline, mucosa normal, no drainage or sinus tenderness. Oropharynx: Lips, mucosa, and tongue normal, teeth and gums normal, oropharynx normal. Neck: Supple, no adenopathy; thyroid symmetric, normal size, no bruits. Lungs: Lungs clear to auscultation. No wheezing, rhonchi, rales.. Heart: RRR without murmur, gallop, or rubs. No ectopy. Abdomen: Normal abdominal exam, Abdomen soft, non-tender. Bowel sounds normal. No masses, organomegaly. Extremities: No deformities, edema, skin discoloration, clubbing or cyanosis. Good capillary refill. . Peripheral Pulses: Normal. Neurologic: Gait normal. Reflexes normal and symmetric. Sensation grossly intact.. H (more content not included)... Normal [facility] Comprehensive metabolic 2000 panelon 03-16-2025 Albumin [Mass/Vol] 4.4 g/dL 3.9 - 4.9 g/dL [facility] ALP [Catalytic activity/Vol] 90 U/L 34 - 123 U/L [facility] ALT [Catalytic activity/Vol] 16 U/L 7 - 38 U/L [facility] Anion gap [Moles/Vol] 12 mmol/L 8 - 15 mmol/L [facility] AST [Catalytic activity/Vol] 22 U/L 13 - 35 U/L [facility] Bilirubin [Mass/Vol] 0.3 mg/dL 0.2 - 1 .3 mg/dL [facility] Calcium [Mass/Vol] 9.8 mg/dL 8.5 - 10. 2 mg/dL [facility] Chloride [Moles/Vol] 103 mmol/L 98 - 10 7 mmol/L [facility] CO2 [Moles/Vol] 22 mmol/L 22 - 30 mmol/L [facility] Creatinine [Mass/Vol] 0.57 mg/dL Low 0.58 - 0.96 mg/dL [facility] GFR/1.73 sq M.predicted among non-blacks MDRD (S/P/Bld) [Vol rate/Area] 114 mL/min/{1.73_m2} - PINF [facility] Comment on above: Estimated Glomerular Filtration Rate (eGFR) is calculated using the 2020 CKD-EPI creatinine equation. This equation utilizes serum creatinine, sex, and age as parameters. The creatinine assay has traceable calibration to isotope dilution-mass spectrometry. Refer to KDIGO guidelines for clinical interpretation. In patients with unstable renal function, e.g. those with acute kidney injury, the eGFR may not accurately reflect actual GFR. Glucose [Mass/Vol] 93 mg/dL 74 - 99 mg/dL [facility] Comment on above: The [place] [employer] s Association (ADA) provides guidance for cutoff values for fasting glucose and random glucose. The ADA defines fasting as no caloric intake for at least 8 hours. Fasting plasma glucose results between 100 to 125 mg/dL indicate increased risk for diabetes (prediabetes). Fasting plasma glucose results greater than or equal to 126 mg/dL meet the criteria for diagnosis of diabetes. In the absence of unequivocal hyperglycemia, results should be confirmed by repeat testing. In a patient with classic symptoms of hyperglycemia or hyperglycemic crisis, random plasma glucose results greater than or equal to 200 mg/dL meet the criteria for diagnosis of diabetes. Reference: Standards of Medical Care in Diabetes 2016, [place] [employer]. Diabetes Care. 2016.39(Suppl 1). Potassium [Moles/Vol] 4.3 mmol/L 3.7 - 5.1 mmol/L [facility] Protein [Mass/Vol] 7.6 g/dL 6.3 - 8.0 g/dL [facility] Sodium [Moles/Vol] 137 mmol/L 136 - 144 mmol/L [facility] Urea nitrogen [Mass/Vol] 10 mg/dL 7 - 21 mg/dL [facility] [facility] Albumin [Mass/Vol] 4.4 g/dL Normal 3.9-4.9 [facility] Comment on above: Order Comment: Speci men Type: BLOOD SPECIMENOrdering Facility: [facility] Address: [address] [place] [address] Performed By: #### 3 016-3, LIPNF, 10691-4, 7 ####[facility] LABIA [id number] [place] [address] [place] ALP [Catalytic activity/Vol] 90 U/L Normal 34-123 [facility] Comment on above: Order Comment: Speci men Type: BLOOD SPECIMENOrdering Facility: [facility] Address: [address] [place] [address] Performed By: #### 3 016-3, LIPNF, 24442-9, 7 ####[facility] LABCLIA [id number] [place] [address] [place] ALT [Catalytic activity/Vol] 16 U/L Normal 7-38 [facility] Comment on above: Order Comment: Speci men Type: BLOOD SPECIMENOrdering Facility: [facility] Address: [address] [place] [address] Performed By: #### 3 016-3, LIPNF, 70756-8, 3023-7 ####[facility] LABCLIA [id number] [place] [id number] [place] Anion gap [Moles/Vol] 12 mmol/L Normal 8-15 [facility] Comment on above: Order Comment: Speci men Type: BLOOD SPECIMENOrdering Facility: [facility] Address: [address] [place] [address] Performed By: #### 3 016-3, LIPNF, 64306-8, 7 ####[facility] LABCLIA [id number] [place] [id number] [place] AST [Catalytic activity/Vol] 22 U/L Normal 13-35 [facility] Comment on above: Order Comment: Speci men Type: BLOOD SPECIMENOrdering Facility: [facility] Address: [address] [place] [address] Performed By: #### 3 016-3, LIPNF, 06662-6, 7 ####[facility] LABCLIA [id number] [place] [address] [place] Bilirubin [Mass/Vol] 0.3 mg/dL Normal 0.2-1.3 [facility] Comment on above: Order Comment: Speci men Type: BLOOD SPECIMENOrdering Facility: [facility] Address: [address] [place] [address] Performed By: #### 3 016-3, LIPNF, 04343-1, 7 ####[facility] LABCLIA [id number] [place] [id number] [place] Calcium [Mass/Vol] 9.8 mg/dL Normal 8.5-10.2 [facility] Comment on above: Order Comment: Speci men Type: BLOOD SPECIMENOrdering Facility: [facility] Address: [address] [place] [address] Performed By: #### 3 016-3, LIPNF, 57210-1, 7 ####[facility] LABCLIA [id number] [place] [id number] [place] Chloride [Moles/Vol] 103 mmol/L Normal 98-107 [facility] Comment on above: Order Comment: Speci men Type: BLOOD SPECIMENOrdering Facility: [facility] Address: [address] [place] [address] Performed By: #### 3 016-3, LIPNF, 66464-4, 3024-7 ####[facility] LABCLIA [id number] [place] [address] [place] CO2 [Moles/Vol] 22 mmol/L Normal 22-30 [facility] Comment on above: Order Comment: Speci men Type: BLOOD SPECIMENOrdering Facility: [facility] Address: [address] [place] [address] Performed By: #### 3 016-3, LIPNF, 29000-1, 3024-7 ####[facility] LABCLIA [id number] [place] [address] [place] Creatinine [Mass/Vol] 0.57 mg/dL Low 0.58-0.96 [facility] Comment on above: Order Comment: Speci men Type: BLOOD SPECIMENOrdering Facility: [facility] Address: [address] [place] [address] Performed By: #### 3 016-3, LIPNF, 69039-4, 3027 ####[facility] LABCLIA [id number] [place] [address] [place] eGFRcr SerPlBld CKD-EPI 2020 114 mL/min/1.73m??? Normal >=60 [facility] Comment on above: Order Comment: Speci men Type: BLOOD SPECIMENOrdering Facility: [facility] Address: [address] [place] [address] Result Comment: Renata mated Glomerular Filtration Rate (eGFR) is calculated using the 2020 CKD-EPI creatinine equation. This equation utilizes serum creatinine, sex, and age as parameters. The creatinine assay has traceable calibration to isotope dilution-mass spectrometry. Refer to KDIGO guidelines for clinical interpretation. In patients with unstable renal function, e.g. those with acute kidney injury, the eGFR may not accurately reflect actual GFR. Performed By: #### 3 016-3, HERBERT, , 3024-02 ####[facility] LABCLIA [id number] [address] [address] [place] Glucose [Mass/Vol] 93 mg/dL Normal 74-99 [facility] Comment on above: Order Comment: Audie fernández Type: BLOOD SPECIMENOrdering Facility: [facility] Address: [address] [place] [address] Result Comment: The [place] Diabetes Association (ADA) provides guidance for cutoff values for fasting glucose and random glucose. The ADA defines fasting as no caloric intake for at least 8 hours. Fasting plasma glucose results between 100 to 125 mg/dL indicate increased risk for diabetes (prediabetes). Fasting plasma glucose results greater than or equal to 126 mg/dL meet the criteria for diagnosis of diabetes. In the absence of unequivocal hyperglycemia, results should be confirmed by repeat testing. In a patient with classic symptoms of hyperglycemia or hyperglycemic crisis, random plasma glucose results greater than or equal to 200 mg/dL meet the criteria for diagnosis of diabetes. Reference: Standards of Medical Care in Diabetes 2016, [place] Diabetes Association. Diabetes Care. 2016.39(Suppl 1). Performed By: #### 3 016-3, HERBERT, , 3024-02 ####[facility] LABCLIA [id number] [address] [address] [place] Potassium [Moles/Vol] 4.3 mmol/L Normal 3.7-5.1 [facility] Comment on above: Order Comment: Audie fernández Type: BLOOD SPECIMENOrdering Facility: [facility] Address: [address] [place] [address] Performed By: #### 3 016-3, LIPBRYAN, , 3024-02 ####[facility] LABCLIA [id number] [address] [address] [place] Protein [Mass/Vol] 7.6 g/dL Normal 6.3-8.0 [facility] Comment on above: Order Comment: Speci men Type: BLOOD SPECIMENOrdering Facility: [facility] Address: [address] [place] [address] Performed By: #### 3 016-3, LIPNF, 44480-0, 3024-02 ####[facility] LABCLIA [id number] [address] [place] [address] [place] Sodium [Moles/Vol] 137 mmol/L Normal 136-144 [facility] Comment on above: Order Comment: Speci men Type: BLOOD SPECIMENOrdering Facility: [facility] Address: [address] [place] [address] Performed By: #### 3 016-3, LIPNF, , 3024-02 ####[facility] LABCLIA [id number] [address] [address] [place] Urea nitrogen [Mass/Vol] 10 mg/dL Normal 7-21 [facility] Comment on above: Order Comment: Speci men Type: BLOOD SPECIMENOrdering Facility: [facility] Address: [address] [place] [address] Performed By: #### 3 016-3, LIPNF, , 3024-02 ####[facility] LABCLIA [id number] [facility] [address] [address] [place] HbA1c (Bld)on 03-16-2025 Average glucose Estimated from glycated hemoglobin (Bld) [Mass/Vol] 100 mg/dL Normal [facility] Comment on above: Order Comment: Speci men Type: BLOOD SPECIMENOrdering Facility: [facility] Address: [address] [place] [address] Result Comment: eAG: (Estimated average glucose) is a calculated value from HgbA1c and is factory representative of the average blood glucose level in the last 2-3 month period. Performed By: #### 5 5454-3 ####[facility] LABCLIA [id number] [address] [address] [place] HbA1c (Bld) [Mass fraction] 5.1 % Normal 4.3-5.6 [facility] Comment on above: Order Comment: Speci men Type: BLOOD SPECIMENOrdering Facility: [facility] Address: [address] [place] [address] Result Comment: Sara [place] Diabetes Association guidelines indicate that patients with HgbA1c in the range 5.7-6.4% are at increased risk for development of diabetes, and intervention by lifestyle modification may be beneficial. HgbA1c greater or equal to 6.5% is considered diagnostic of diabetes. Performed By: #### 5 5454-3 ####[facility] LABCLIA [id number] [facility] [place] [address] [place] LIPID PANEL, NONFASTINGon Cholesterol [Mass/Vol] 188 mg/dL NINF - 200 mg/dL [facility] Comment on above: <200 mg/dL, Desirabl e 200-239 mg/dL, Borderline high >239 mg/dL, High HDL Cholesterol, Nonfasting 58 mg/dL 39 - PINF mg/dL [facility] Comment on above: 40-59 mg/dL, Accepta ble >59 mg/dL, High: Negative risk factor for coronary heart disease <40 mg/dL, Low: Positive risk factor for coronary heart disease LDL Cholesterol Calculated, Nonfasting 107 mg/dL High NINF - 100 mg/dL [facility] Comment on above: <100 mg/dL, Optimal 100-129 mg/dL, Near optimal/above optimal 130-159 mg/dL, Borderline high 160-189 mg/dL, High >189 mg/dL, Very high Secondary prevention optimal LDL Cholesterol levels are recommended to be <70 mg/dL LDL cholesterol is calculated using the Rojas-NIH equation. LDL/HDL Ratio, Nonfasting 1.84 mg/dL NINF - 2.54 mg/dL [facility] Comment on above: Reference: 1. National Cholesterol Education Program ATP III Guideline At-A-Glance Quick Desk Reference: National Heart, Lung, and Blood [place]. National Institutes of Health. 2001: NIH Publication No. 01-3305. 2. An International Atherosclerosis Society position paper: global recommendations for the management of dyslipidemia: executive summary, Atherosclerosis. 2014: 232(2):410-413. Non HDL Cholesterol, Nonfasting 130 mg/dL High NINF - 130 mg/dL [facility] Comment on above: <130 mg/dL, Optimal 130-159 mg/dL, Near optimal/above optimal 160-189 mg/dL, Borderline high 190-219 mg/dL, High >219 mg/dL, Very high Secondary prevention optimal non HDL Cholesterol levels are recommended to be <100 mg/dL Total Chol/HDL Ratio, Nonfasting 3.24 mg/dL NINF - 5.10 mg/dL [facility] Triglycerides, Nonfasting 128 mg/dL NINF - 150 mg/dL [facility] Comment on above: <150 mg/dL, Normal 150-199 mg/dL, Borderline high 200-499 mg/dL, High >499 mg/dL, Very high VLDL Cholesterol, Nonfasting 21 mg/dL NINF - 30 mg/dL [facility] Cholesterol [Mass/Vol] 188 mg/dL Normal <200 [facility] Comment on above: Order Comment: Speci men Type: BLOOD SPECIMENOrdering Facility: [facility] Address: [address] [place] [address] Result Comment: <200 mg/dL, Desirable 200-239 mg/dL, Borderline high >239 mg/dL, High Performed By: #### 3 016-3, LIPBRYAN, , 3024-02 ####[facility] LABCLIA [id number] [address] STATES OF [facility] HDL CHOLESTEROL, NF 58 mg/dL Normal >39 [facility] Comment on above: Order Comment: Katyi men Type: BLOOD SPECIMENOrdering Facility: [facility] Address: [address] [place] [address] Result Comment: 40-5 9 mg/dL, Acceptable >59 mg/dL, High: Negative risk factor for coronary heart disease <40 mg/dL, Low: Positive risk factor for coronary heart disease Performed By: #### 3 016-3, LIPNF, 59582-9, 3024-02 ####[facility] LABCLIA [id number] [address] [place] LDL CHOLESTEROL CALCULATED, NF 107 mg/dL High <100 [facility] Comment on above: Order Comment: Audie fernández Type: BLOOD SPECIMENOrdering Facility: [facility] Address: [address] [place] [address] Result Comment: <100 mg/dL, Optimal 100-129 mg/dL, Near optimal/above optimal 130-159 mg/dL, Borderline high 160-189 mg/dL, High >189 mg/dL, Very high Secondary prevention optimal LDL Cholesterol levels are recommended to be <70 mg/dL LDL cholesterol is calculated using the Rojas-NIH equation. Performed By: #### 3 016-3, LIPNF, 61877-7, 3023-7 ####[facility] LABCLIA [id number] [address] [place] LDL/HDL RATIO, NF 1.84 mg/dL Normal <2.54 [facility] Comment on above: Order Comment: Audie fernández Type: BLOOD SPECIMENOrdering Facility: [facility] Address: [address] [place] [address] Result Comment: Refe rence: 1. National Cholesterol Education Program ATP III Guideline At-A-Glance Quick Desk Reference: National Heart, Lung, and Blood [place]. National Institutes of Health. 2001: NIH Publication No. 01-3305. 2. An International Atherosclerosis Society position paper: global recommendations for the management of dyslipidemia: executive summary, Atherosclerosis. 2014: 232(2):410-413. Performed By: #### 3 016-3, LIPNF, 02566-7, 7 ####[facility] LABCLIA [id number] [address] [place] NON HDL CHOL, NF 130 mg/dL High <130 [facility] Comment on above: Order Comment: Audie jolene Type: BLOOD SPECIMENOrdering Facility: [facility] Address: [address] [place] [address] Result Comment: <130 mg/dL, Optimal 130-159 mg/dL, Near optimal/above optimal 160-189 mg/dL, Borderline high 190-219 mg/dL, High >219 mg/dL, Very high Secondary prevention optimal non HDL Cholesterol levels are recommended to be <100 mg/dL Performed By: #### 3 016-3, LIPNF, 96217-9, 3023-7 ####[facility] LABCLIA [id number] [address] [address] [place] T CHOL/HDL RATIO NF 3.24 mg/dL Normal <5.10 [facility] Comment on above: Order Comment: Speci men Type: BLOOD SPECIMENOrdering Facility: [facility] Address: [address] [place] [address] Performed By: #### 3 016-3, LIPNF, 45381-1, 7 ####[facility] LABCLIA [id number] [place] [address] [place] TRIGLYCERIDES, NF 128 mg/dL Normal <150 [facility] Comment on above: Order Comment: Speci men Type: BLOOD SPECIMENOrdering Facility: [facility] Address: [address] [place] [address] Result Comment: <150 mg/dL, Normal 150-199 mg/dL, Borderline high 200-499 mg/dL, High >499 mg/dL, Very high Performed By: #### 3 016-3, LIPNF, 09107-7, 7 ####[facility] LABCLIA [id number] [address] [address] [place] VLDL CHOLESTEROL, NF 21 mg/dL Normal <30 [facility] Comment on above: Order Comment: Speci men Type: BLOOD SPECIMENOrdering Facility: [facility] Address: [address] [place], [place] [address] Performed By: #### 3 016-3, LIPNF, 03510-8, 7 ####[facility] LABCLIA [id number] [address] [address] [place] No Panel Informationon 03-16 Interpretation and review of laboratory results Normal [facility] Interpretation and review of laboratory results Abnormal [facility] T4 FREE/FREE THYROXINEon Free T4 [Mass/Vol] 1.5 ng/dL 0.9 - 1.7 ng/dL [facility] T4 Free SerPl-mCncon 03-16- 025 Free T4 [Mass/Vol] 1.5 ng/dL Normal 0.9-1.7 [facility] Comment on above: Order Comment: Speci men Type: BLOOD SPECIMENOrdering Facility: [facility] Address: [address] [place] [address] Performed By: #### 3 016-3, LIPNF, 36073-7, 3024-7 ####[facility] LABIA [id number] [address] [place] THYROID PEROXIDASE ANTIBODYo n 03-16-2025 TPO Ab Qn [IU]/mL Normal <5.6 [facility] Comment on above: Order Comment: Speci men Type: BLOOD SPECIMENOrdering Facility: [facility] Address: [address] [place] [address] Result Comment: Thyr oid Peroxidase Antibody test is used as an aid in diagnosis of autoimmune thyroid disease. Clinical correlation is required. Performed By: #### M ICRO ####[facility] LABCLIA [id number] [place] [address] [place] THYROID STIMULATING HORMONEo n 03-16-2025 TSH Qn 2.08 m[IU]/L [facility] Comment on above: If the patient is pr egnant, TSH reference range varies by gestational period: First Trimester (weeks 9-12): 0.180-2.990 mIU/L Second Trimester: 0.110-3.980 mIU/L Third Trimester: 0.480-4.710 mIU/L rDew Nuno et al. A Practical Approach for the Verifications and Determination of Site- and Trimester-Specific Reference Intervals for Thyroid Function tests in . Thyroid, 2019:29:3:412-420. Franky Huggins, et al. 2017 Guidelines of the [place] Thyroid Association for the Diagnosis and Management of Thyroid Disease during and the . Thyroid, 2017:27:3:315-389. TSH SerPl-aCncon 03-16-2025 TSH Qn 2.080 m[IU]/L Normal 0.270-4.200 [facility] Comment on above: Order Comment: Speci men Type: BLOOD SPECIMENOrdering Facility: [facility] Address: [address] [place] [address] Result Comment: If t he patient is , TSH reference range varies by gestational period: First Trimester (weeks 9-12): 0.180-2.990 mIU/L Second Trimester: 0.110-3.980 mIU/L Third Trimester: 0.480-4.710 mIU/L Drew Nuno et al. A Practical Approach for the Verifications and Determination of Site- and Trimester-Specific Reference Intervals for Thyroid Function tests in . Thyroid, 2019:29:3:412-420. Franky Huggins, et al. 2017 Guidelines of the [place] Thyroid Association for the Diagnosis and Management of Thyroid Disease during and the . Thyroid, 2017:27:3:315-389. Performed By: #### 3 016-3, LIPNF, 99605-6, 3024-7 ####[facility] LABCLIA [id number] [place] [address] [place] Urinalysis complete panel (U )on 03-16-2025 Bacteria LM.HPF (Urine sed) [#/Area] Negative Negative /HPF [facility] Bilirubin Ql (U) Negative Negative [facility] Clarity (Unsp spec) Clear Clear [facility] Color (U) Yellow Yellow [facility] Epithelial cells LM.HPF (Urine sed) [#/Area] None Seen /HPF [facility] Glucose Test strip (U) [Mass/Vol] Negative [facility] Hemoglobin Ql (U) Trace Abnormal Negative [facility] Hyaline casts (Urine sed) [#/Area] 0 /[LPF] 0 /LPF [facility] Interpretation and review of laboratory results Abnormal [facility] Ketones Ql (U) Negative [facility] Leukocyte esterase Test strip Ql (U) Negative Negative [facility] Nitrite Ql (U) Negative Negative [facility] pH (U) 6.5 [pH] 5.0 - 8.0 [facility] Protein (U) [Mass/Vol] Negative Negative [facility] RBC LM.HPF (Urine sed) [#/Area] 0-2 /HPF 0-2 /HPF [facility] Specific gravity (U) [Rel density] 1.007 1.005 - 1.030 [facility] Urobilinogen Ql (U) 0.2 EU/dL 0.2-1.0 EU/dL [facility] WBC LM.HPF (Urine sed) [#/Area] 0-5 /HPF 0-5 /HPF [facility] This test was developed and its performance characteristics determined by [facility]'s [facility] [place] ([facility]). It has not been cleared or approved by the FDA. -[facility] is regulated under CLIA as qualified to perform high-complexity testing. This test is used for clinical purposes. It should not be regarded as investigational or for research. [facility] Bacteria LM.HPF (Urine sed) [#/Area] Negative Normal Negative [facility] Comment on above: Order Comment: Speci men Type: URINE SPECIMENOrdering Facility: [facility] Address: [address] [place] [address] Performed By: #### 2 4356-8 ####[facility] [id number] [place] [address] [place] Bilirubin Ql (U) Negative Normal Negative [facility] Comment on above: Order Comment: Speci men Type: URINE SPECIMENOrdering Facility: [facility] Address: [address] [place] [address] Performed By: #### 2 4356-8 ####[facility] LABIA [id number] [place] [id number] [place] Clarity (Unsp spec) Clear Normal Clear [facility] Comment on above: Order Comment: Speci men Type: URINE SPECIMENOrdering Facility: [facility] Address: [address] [place] [address] Performed By: #### 2 4356-8 ####[facility] LABIA [id number] [place] [address] [place] Color (U) Yellow Normal Yellow [facility] Comment on above: Order Comment: Speci men Type: URINE SPECIMENOrdering Facility: [facility] Address: [address] [place] [address] Performed By: #### 2 4356-8 ####[facility] LABCLIA [id number] [address] [place] Epithelial cells LM.HPF (Urine sed) [#/Area] None Seen Normal [facility] Comment on above: Order Comment: Speci men Type: URINE SPECIMENOrdering Facility: [facility] Address: [address] [place] [address] Performed By: #### 2 4356-8 ####[facility] LABCLIA [id number] [place] [address] [place] Glucose Test strip (U) [Mass/Vol] Negative Normal Negative [facility] Comment on above: Order Comment: Speci men Type: URINE SPECIMENOrdering Facility: [facility] Address: [address] [place] [address] Performed By: #### 2 4356-8 ####[facility] LABCLIA [id number] [place] [address] [place] Hemoglobin Ql (U) Trace Abnormal Negative [facility] Comment on above: Order Comment: Speci men Type: URINE SPECIMENOrdering Facility: [facility] Address: [address] [place] [address] Performed By: #### 2 4356-8 ####[facility] LABCLIA [id number] [place] [address] [place] Hyaline casts (Urine sed) [#/Area] 0 /[LPF] Normal 0 /LPF [facility] Comment on above: Order Comment: Speci men Type: URINE SPECIMENOrdering Facility: [facility] Address: [address] [place] [address] Performed By: #### 2 4356-8 ####[facility] LABCLIA [id number] [address] [place] [address] [place] Ketones Ql (U) Negative Normal Negative [facility] Comment on above: Order Comment: Speci men Type: URINE SPECIMENOrdering Facility: [facility] Address: [address] [place] [address] Performed By: #### 2 4356-8 ####[facility] LABCLIA [id number] [address], [facility] [place] Leukocyte esterase Test strip Ql (U) Negative Normal Negative [facility] Comment on above: Order Comment: Speci men Type: URINE SPECIMENOrdering Facility: [facility] Address: [address] [place] [address] Performed By: #### 2 4356-8 ####[facility] LABCLIA [id number] [place] [address] [place] Nitrite Ql (U) Negative Normal Negative [facility] Comment on above: Order Comment: Speci men Type: URINE SPECIMENOrdering Facility: [facility] Address: [address] [place] [address] Performed By: #### 2 4356-8 ####[facility] LABCLIA [id number] [place] [id number] [place] pH (U) 6.5 [pH] Normal 5.0-8.0 [facility] Comment on above: Order Comment: Speci men Type: URINE SPECIMENOrdering Facility: [facility] Address: [address] [place] [address] Performed By: #### 2 4356-8 ####[facility] LABCLIA [id number] [place] [id number] [place] Protein (U) [Mass/Vol] Negative Normal Negative [facility] Comment on above: Order Comment: Speci men Type: URINE SPECIMENOrdering Facility: [facility] Address: [address] [place] [address] Performed By: #### 2 4356-8 ####[facility] LABCLIA [id number] [place] [address] [place] RBC LM.HPF (Urine sed) [#/Area] 0-2 /HPF Normal 0-2 /HPF [facility] Comment on above: Order Comment: Speci men Type: URINE SPECIMENOrdering Facility: [facility] Address: [address] [place] [address] Performed By: #### 2 4356-8 ####[facility] LABIA [id number] [place] [address] [place] Specific gravity (U) [Rel density] 1.007 Normal 1.005-1.030 [facility] Comment on above: Order Comment: Speci men Type: URINE SPECIMENOrdering Facility: [facility] Address: [address] [place] [address] Performed By: #### 2 4356-8 ####[facility] LABIA [id number] [place] [address] [place] Urobilinogen Ql (U) 0.2 EU/dL Normal 0.2-1.0 EU/dL [facility] Comment on above: Order Comment: Speci men Type: URINE SPECIMENOrdering Facility: [facility] Address: [address] [place] [address] Performed By: #### 2 4356-8 ####[facility] LABIA [id number] [place] [address] [place] WBC LM.HPF (Urine sed) [#/Area] 0-5 /HPF Normal 0-5 /HPF [facility] Comment on above: Order Comment: Speci men Type: URINE SPECIMENOrdering Facility: [facility] Address: [address] [place] [address] Performed By: #### 2 4356-8 ####[facility] LABIA [id number] [address] [address] [place] XR CHEST 2V FRONTAL/LATon XR CHEST 2V FRONTAL/LAT * * *Final Report* * * DATE OF EXAM: Mar 16 2025 10:43AM WOX 5291 - XR CHEST 2V FRONTAL/LAT / PROCEDURE REASON: TB lung, latent * * * * Physician Interpretation * * * * EXAMINATION: CHEST RADIOGRAPH (2 VIEW FRONTAL and LATERAL) CLINICAL HISTORY: TB lung, latent MQ: XC2_6 EXAM DATE/TIME: 03/16/2025 10:43 AM COMPARISON: No relevant prior studies available. RESULT: Lines, tubes, and devices: None. Lungs and pleura: No consolidation. No lung mass. No pleural effusion. No pneumothorax. Cardiomediastinal silhouette: Normal cardiomediastinal silhouette. Bones and soft tissues: Unremarkable. IMPRESSION: No acute radiographic abnormality. Telecommunicator Supervisor: DERIK Transcribe Date/Time: Mar 16 2025 10:47A Dictated by : TINO GERBER MD This examination was interpreted and the report reviewed and electronically signed by: TINO GERBER MD on Mar 16 2025 10:48AM EST [id number] Normal [facility] XR Chest PA and Lateralon Radiology Study observation (narrative) [facility] IMPRESSION: No acute radiographic abnormality. 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 RESULT: Lines, tubes, and devices: None. Lungs and pleura: No consolidation. No lung mass. No pleural effusion. No pneumothorax. Cardiomediastinal silhouette: Normal cardiomediastinal silhouette. Bones and soft tissues: Unremarkable. 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 RESULT: Lines, tubes, and devices: None. Lungs and pleura: No consolidation. No lung mass. No pleural effusion. No pneumothorax. Cardiomediastinal silhouette: Normal cardiomediastinal silhouette. Bones and soft tissues: Unremarkable. IMPRESSION IMPRESSION: No acute radiographic abnormality. Telecommunicator Supervisor: DERIK Transcribe Date/Time: Mar 16 2025 10:47A Dictated by : TINO GERBER MD This examination was interpreted and the report reviewed and electronically signed by: TINO GERBER MD on Mar 16 2025 10:48AM EST [facility] XR Chest PA and LateralOrder ed By: Ccf Provider on 03-16-2025 [facility] Basic metabolic 2000 panelon 03-05-2025 Anion gap [Moles/Vol] 10 mmol/L Normal 5-16 [facility] Comment on above: Order Comment: Audie fernández Type: BLOOD SPECIMEN [facility] Address: [address] [place] [address] Performed By: #### 2 4321-2 #### [facility] CLIA [id number] [address] [place] [address] [place] Calcium [Mass/Vol] 9.1 mg/dL Normal 8.5-10.5 [facility] Comment on above: Order Comment: Audie fernández Type: BLOOD SPECIMEN [facility] Address: [address] [place] [address] Performed By: #### 2 4321-2 #### [facility] CLIA [id number] [address] [place] [address] [place] Chloride [Moles/Vol] 104 mmol/L Normal 98-107 [facility] Comment on above: Order Comment: Speci men Type: BLOOD SPECIMEN [facility] Address: [address] [place] [address] Performed By: #### 2 4321-2 #### [facility] CLIA [id number] [address] [place] [address] [place] CO2 [Moles/Vol] 28 mmol/L Normal 21-32 [facility] Comment on above: Order Comment: Speci men Type: BLOOD SPECIMEN [facility] Address: [address] [place] [address] Performed By: #### 2 4321-2 #### [facility] CLIA [id number] [address] [place] [address] [place] Creatinine [Mass/Vol] 0.61 mg/dL Normal 0.51-0.95 [facility] Comment on above: Order Comment: Speci men Type: BLOOD SPECIMEN [facility] Address: [address] [place] [address] Result Comment: Tessy ents receiving either N-Acetylcysteine (NAC) or Metamizole prior to venipuncture, may have falsely depressed results. Performed By: #### 2 4321-2 #### [facility] CLIA [id number] [address] [place] [address] [place] eGFRcr SerPlBld CKD-EPI 2020 112 mL/min/1.73m??? Normal >=60 [facility] Comment on above: Order Comment: Speci men Type: BLOOD SPECIMEN [facility] Address: [address] [place] [address] Result Comment: Renata mated Glomerular Filtration Rate (eGFR) is calculated using the 2020 CKD-EPI creatinine equation. This equation utilizes serum creatinine, sex, and age as parameters. The creatinine assay has traceable calibration to isotope dilution-mass spectrometry. Refer to KDIGO guidelines for clinical interpretation. In patients with unstable renal function, e.g. those with acute kidney injury, the eGFR may not accurately reflect actual GFR. Performed By: #### 2 4321-2 #### [facility] CLIA [id number] [address] [place], [place] [address] [place] Glucose [Mass/Vol] 110 mg/dL High 70-100 [facility] Comment on above: Order Comment: Audie fernández Type: BLOOD SPECIMEN [facility] Address: [address] [place] [address] Result Comment: The [place] [employer] (ADA) provides guidance for cutoff values for fasting glucose and random glucose. The ADA defines fasting as no caloric intake for at least 8 hours. Fasting plasma glucose results between 100 to 125 mg/dL indicate increased risk for diabetes (prediabetes). Fasting plasma glucose results greater than or equal to 126 mg/dL meet the criteria for diagnosis of diabetes. In the absence of unequivocal hyperglycemia, results should be confirmed by repeat testing. In a patient with classic symptoms of hyperglycemia or hyperglycemic crisis, random plasma glucose results greater than or equal to 200 mg/dL meet the criteria for diagnosis of diabetes. Reference: Standards of Medical Care in Diabetes 2016, [place] [employer]. Diabetes Care. 2016.39(Suppl 1). Results may be falsely elevated after the administration of Sulfapyridine. Results may be falsely depressed after the administration of Sulfasalazine. Performed By: #### 2 4321-2 #### [facility] CLIA [id number] [address] [place] [address] [place] Potassium [Moles/Vol] 3.5 mmol/L Normal 3.5-5.1 [facility] Comment on above: Order Comment: Audie fernández Type: BLOOD SPECIMEN [facility] Address: [address] [place] [address] Performed By: #### 2 4321-2 #### [facility] CLIA [id number] [address] [place] [address] [place] Sodium [Moles/Vol] 142 mmol/L Normal 136-145 [facility] Comment on above: Order Comment: Audie fernández Type: BLOOD SPECIMEN [facility] Address: [address] [place] [address] Performed By: #### 2 4321-2 #### [facility] CLIA [id number] [address] [place] [address] [place] Urea nitrogen [Mass/Vol] 9 mg/dL Normal 03-14 [facility] Comment on above: Order Comment: Speci men Type: BLOOD SPECIMEN [facility] Address: [address] [place] [address] Performed By: #### 2 4321-2 #### [facility] CLIA [id number] [address] [place] [address] [place] CBC W Auto Differential pane l (Bld)on 03-05-2025 Basophils (Bld) [#/Vol] 0.04 10*3/uL Normal <0.11 [facility] Comment on above: Order Comment: Speci men Type: BLOOD SPECIMEN [facility] Address: [address] [place] [address] Performed By: #### 5 7021-8 #### [facility] CLIA [id number] [address] [place] [address] [place] Basophils/100 WBC (Bld) 0.8 % Normal [facility] Comment on above: Order Comment: Speci men Type: BLOOD SPECIMEN [facility] Address: [address] [place] [address] Performed By: #### 5 7021-8 #### [facility] CLIA [id number] [address] [place] [address] [place] Differential cell count method Nom (Bld) Auto Normal [facility] Comment on above: Order Comment: Speci men Type: BLOOD SPECIMEN [facility] Address: [address] [place] [address] Performed By: #### 5 7021-8 #### [facility] CLIA [id number] [address] [place] [address] [place] Eosinophils (Bld) [#/Vol] 0.22 10*3/uL Normal <0.46 [facility] Comment on above: Order Comment: Speci men Type: BLOOD SPECIMEN [facility] Address: [facility] [place] [address] Performed By: #### 5 7021-8 #### [facility] CLIA [id number] [address] [place] [address] [place] Eosinophils/100 WBC (Bld) 4.2 % Normal [facility] Comment on above: Order Comment: Speci men Type: BLOOD SPECIMEN [facility] Address: [address] [place] [address] Performed By: #### 5 7021-8 #### [facility] CLIA [id number] [address] [place] [address] [place] Erythrocyte distribution width (RBC) [Ratio] 12.4 % Normal 11.5-15.0 [facility] Comment on above: Order Comment: Speci men Type: BLOOD SPECIMEN [facility] Address: [address] [place] [address] Performed By: #### 5 7021-8 #### [facility] CLIA [id number] [address] [place] [address] [place] Hematocrit (Bld) [Volume fraction] 33.9 % Low 36.0-46.0 [facility] Comment on above: Order Comment: Speci men Type: BLOOD SPECIMEN [facility] Address: [address] [place] [address] Performed By: #### 5 7021-8 #### [facility] CLIA [id number] [address] [place] [address] [place] Hemoglobin (Bld) [Mass/Vol] 11.6 g/dL Normal 11.5-15.5 [facility] Comment on above: Order Comment: Speci men Type: BLOOD SPECIMEN [facility] Address: [address] [place] [address] Performed By: #### 5 7021-8 #### [facility] CLIA [id number] [address] [place] [address] [place] Immature granulocytes (Bld) [#/Vol] 10*3/uL Normal <0.10 [facility] Comment on above: Order Comment: Speci men Type: BLOOD SPECIMEN [facility] Address: [address] [place] [address] Performed By: #### 5 7021-8 #### [facility] CLIA [id number] [address] [place] [address] [place] Immature granulocytes/100 WBC (Bld) 0.4 % Normal [facility] Comment on above: Order Comment: Speci men Type: BLOOD SPECIMEN [facility] Address: [address] [place] [address] Performed By: #### 5 7021-8 #### [facility] CLIA [id number] [address] [place] [address] [place] Lymphocytes (Bld) [#/Vol] 1.96 10*3/uL Normal 1.00-4.00 [facility] Comment on above: Order Comment: Speci men Type: BLOOD SPECIMEN [facility] Address: [address] [place] [address] Performed By: #### 5 7021-8 #### [facility] CLIA [id number] [address] [place] [address] [place] Lymphocytes/100 WBC (Bld) 37.2 % Normal [facility] Comment on above: Order Comment: Speci men Type: BLOOD SPECIMEN [facility] Address: [address] [place] [address] Performed By: #### 5 7021-8 #### [facility] CLIA [id number] [address] [place] [address] [place] MCH (RBC) [Entitic mass] 31.0 pg Normal 26.0-34.0 [facility] Comment on above: Order Comment: Speci men Type: BLOOD SPECIMEN [facility] Address: [address] [place] [address] Performed By: #### 5 7021-8 #### [facility] CLIA [id number] [address] [place] [address] [place] MCHC (RBC) [Mass/Vol] 34.2 g/dL Normal 30.5-36.0 [facility] Comment on above: Order Comment: Speci men Type: BLOOD SPECIMEN [facility] Address: [address] [place] [address] Performed By: #### 5 7021-8 #### [facility] CLIA [id number] [address] [place] [address] [place] MCV (RBC) [Entitic vol] 90.6 fL Normal 80.0-100.0 [facility] Comment on above: Order Comment: Speci men Type: BLOOD SPECIMEN [facility] Address: [address] [place] [address] Performed By: #### 5 7021-8 #### [facility] CLIA [id number] [address] [place] [address] [place] Monocytes (Bld) [#/Vol] 0.33 10*3/uL Normal <0.87 [facility] Comment on above: Order Comment: Speci men Type: BLOOD SPECIMEN [facility] Address: [address] [place] [address] Performed By: #### 5 7021-8 #### [facility] CLIA [id number] [address] [place] [address] [place] Monocytes/100 WBC (Bld) 6.3 % Normal [facility] Comment on above: Order Comment: Speci men Type: BLOOD SPECIMEN [facility] Address: [address] [place] [address] Performed By: #### 5 7021-8 #### [facility] CLIA [id number] [address] [place] [address] [place] Neutrophils (Bld) [#/Vol] 2.70 10*3/uL Normal 1.45-7.50 [facility] Comment on above: Order Comment: Speci men Type: BLOOD SPECIMEN [facility] Address: [address] [place] [address] Performed By: #### 5 7021-8 #### [facility] CLIA [id number] [address] [place], [place] [address] [place] Neutrophils/100 WBC (Bld) 51.1 % Normal [facility] Comment on above: Order Comment: Speci men Type: BLOOD SPECIMEN [facility] Address: [address] [place] [address] Performed By: #### 5 7021-8 #### [facility] CLIA [id number] [address] [place] [address] [place] Nucleated RBC (Bld) [#/Vol] 10*3/uL Normal <0.01 [facility] Comment on above: Order Comment: Speci men Type: BLOOD SPECIMEN [facility] Address: [address] [place] [address] Performed By: #### 5 7021-8 #### [facility] CLIA [id number] [address] [place] [address] [place] Nucleated RBC/100 WBC (Bld) [Ratio] 0.0 /100 WBC Normal [facility] Comment on above: Order Comment: Speci men Type: BLOOD SPECIMEN [facility] Address: [address] [place] [address] Performed By: #### 5 7021-8 #### [facility] CLIA [id number] [address] [place] [address] [place] Platelet mean volume (Bld) [Entitic vol] 9.5 fL Normal 9.0-12.7 [facility] Comment on above: Order Comment: Speci men Type: BLOOD SPECIMEN [facility] Address: [address] [place] [address] Performed By: #### 5 7021-8 #### [facility] CLIA [id number] [address] [place] [address] [place] Platelets (Bld) [#/Vol] 287 10*3/uL Normal 150-400 [facility] Comment on above: Order Comment: Speci men Type: BLOOD SPECIMEN [facility] Address: [address] [place] [address] Performed By: #### 5 7021-8 #### [facility] CLIA [id number] [address] [place], [place] [address] [place] RBC (Bld) [#/Vol] 3.74 10*6/uL Low 3.90-5.20 [facility] Comment on above: Order Comment: Speci men Type: BLOOD SPECIMEN [facility] Address: [address] [place], [place] [address] Performed By: #### 5 7021-8 #### [facility] CLIA [id number] [address] [place], [place] [address] [facility] [place] WBC (Bld) [#/Vol] 5.27 10*3/uL Normal 3.70-11.00 [facility] Comment on above: Order Comment: Speci men Type: BLOOD SPECIMEN [facility] Address: [address] [place], [place] [address] Performed By: #### 5 7021-8 #### [facility] CLIA [id number] [address] [place], [place] [address] [facility] ED NOTEon 03-05-2025 ED NOTE HNO ID: [id number] Author: BILLIE GILLILAND RN Service: Emergency Medicine Author Type: Registered Nurse Type: ED Notes Filed: 03/05/2025 16:46 Note Text: Here with left hand pain and numbness since donating blood yesterday Normal [facility] ED Triage Noteon 03-05-2025 ED Triage Note HNO ID: [id number] Author: KIM TREADWELL PA-C Service: ? Author Type: Physician [employer] Worker Type: ED Triage Notes Filed: 03/05/2025 16:48 Note Text: ED TRIAGE PROVIDER NOTE Patient Name: Franny Zacarias Service Date: 03/05/25 BRIEF HPI: This is a 45 year old female who presents to the ED with: left hand pain. Donated blood yesterday, had pain with IV insertion, since then has had tingling to left hand. IV was placed in the left AC BRIEF EXAM: NAD Awake and Alert Non labored breathing Sensation decreased slightly to left hand when compared to right. Good perfusion to upper extremities bilaterally. INITIAL WORKUP AND DECISION MAKING: Orders Placed This Encounter CBC + AUTO DIFF BASIC METABOLIC PANEL SIGNATURE: Kim Treadwell PA-C [facility] CNOVon 01-01-2025 CNOV Office Visit (OBGYWM ) FRANNY ZACARIAS ([id number]) 1980 F Date Time Provider Department 01/01/25 11:30 AM ANGIE BLACKWELL OBGYWM During your visit today, we recorded the following information about you: Blood pressure Weight 98/60 66 kg Angie Blackwell MD 01/01/2025 12:16 PM Signed Franny Zacarias is a 44 year old female who presents to discuss a DANDC. HPI: LMP 2021 with two episodes of post menopausal bleeding. Pelvic US with 4 cm submucosal fibroid. Attempted EMB with stenotic cervix. Patient desires DANDC as attempted EMB as very painful for her. OB History Gravida0 Para0 Term0 Preterm0 AB0 Living0 SAB0 IAB0 Ectopic0 Multiple0 Live Births0 Comment: menarche age 16 or 17 Drugless Doctor History LMP: 05/08/2022, Postmenopausal Age at Menarche: Age at First : Age at Menopause: Drugless Doctor History Comments: Sexual Activity: Yes; Male Contraception: No contraception data on record PAST MEDICAL HISTORY Diagnosis Date Other constipation Solitary cyst of breast 08/20/2001 right breast Urethral diverticulum 05/18/2021 Seeing uro Urinary urgency 05/18/2021 PAST SURGICAL HISTORY Procedure Laterality Date COLONOSCOPY SCREENING 08/2021 FAMILY HISTORY Problem Relation Age of Onset Cancer Mother ovarian cancer w/ mets; Cervical Cancer Mother Hypertension Paternal Grandmother Hyperlipidemia Paternal Grandmother other (other) Paternal Grandmother pre-diabetes Social History Tobacco Use Smoking status: Never Smokeless tobacco: Never Vaping Use Vaping status: Never Used Substance Use Topics Alcohol use: Not Currently Comment: rare Drug use: Never Current Outpatient Medications Medication Sig Cholecalciferol, Vitamin D3, 50 mcg (2,000 unit) cap Take 1 capsule by mouth once daily. (Patient not taking: Reported on 07/31/2024) No current facility-administered medications for this visit. Allergies As of Date: 01/01/2025 Allergen Noted Reaction NAPROXEN 04/10/2022 Hives, Swelling, and Shortness of Breath MOBIC [MELOXICAM] 04/10/2022 Swelling and Itching Fully Assessed 01/01/2025 REVIEW OF SYSTEMS Expanded ROS: N/A Allergies and current medication updated:Yes SENSITIVE EXAM: Sensitive exam not performed. EXAM: BP 98/60 Wt 145 lb 6.4 oz (66.0kg) LMP 05/08/2022 GENERAL: pleasant, female in no apparent distress HEENT: Normocephalic and atraumatic CHEST: Normal inspiratory effort NEURO: exam grossly non-focal EXTREMITIES: normal ASSESSMENT AND PLAN: Assessment AND Plan PMB (postmenopausal bleeding) Reviewed possible causes of PMB. Reviewed pelvic US results and questions answered. Discussed r/b/a hysteroscopy, DANDC, fibroid resection at [facility] and patient desires to proceed. Surgery sheet completed. Family history of ovarian cancer Orders: CONSULT TO MEDICAL GENETICS - CANCER; Future Discussed importance of genetics referral as mother never had testing for ovarian cancer. Submucous leiomyoma of uterus Hematuria, unspecified type Referred to urology. Patient will call to schedule. Angie Blackwell DO I spent 20 minutes in the visit, with more than 50% of the total [id number] time of the visit in counseling / coordination of care. Allergies As of Date: 01/01/2025 Noted Allergy Reaction NAPROXEN 04/10/2022 4 - Hives 7 - Swelling 12 - Shortness of Breath MOBIC (MELOXICAM) 04/10/2022 7 - Swelling 9 - Itching Date Reviewed: 01/01/2025 Reviewed by: Belinda Powell MA - Fully Assessed Reason for Visit: Follow Up [171] Cmt: Discuss hysteroscopy Primary Visit Diagnosis:PMB (postmenopausal bleeding) [N95.0] Other Visit Diagnoses:Family history of ovarian cancer [Z80.41] Submucous leiomyoma of uterus [D25.0] Hematuria, unspecified type [R31.9] Order(s):CONSULT TO MEDICAL GENETICS - CANCER [8903053] Order #: [id number]: 1 FUTURE Prescriptions as of 01/01/2025 - Cholecalciferol, Vitamin D3, 50 mcg (2,000 unit) cap Take 1 capsule by mouth once daily. 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] 06/05/2023 Urinary frequency [R35.0] 08/14/2023 Microscopic hematuria [R31.29] 08/14/2023 Nocturia [R35.1] 08/14/2023 Pelvic pressure in female [R10.2] 08/14/2023 Dyspareunia in female [N94.10] 08/14/2023 Fibroids, submucosal [D25.0] 08/07/2024 Paratubal cyst [N83.8] 08/07/2024 Encounter Status:Closed by ANGIE BLACKWELL on 01/01/25 [facility] CNCOon 09-24-2024 CNCO Letter Text [facility] CNPJackie 09-03-2024 CNPN Telephone (OBGYWM) FRANNY ZACARIAS ([id number]) 1980 F Date Time Provider Department 09/03/24 VITA WAHL During your visit today, we recorded the following information about you: Vita Wahl APRN.CNP 09/03/2024 10:45 AM Signed Please call patient - EMB was attempted on 08/27 for PMB but unsuccessful due to stenotic cervix. I had recommended that she follow up for surgeon for possible hysteroscopy D+C but has not scheduled. Vita Wahl APRN.Juanita Marinelli RN 09/03/2024 12:04 PM Signed Tried calling patient on number listed in chart; however, when calling it states We are sorry the number you have dialed has calling restrictions that have prevented the completion of your call. Bruxie message sent to Pt. GREG Piña Tara, RN 09/16/2024 11:13 AM Signed Left message for patient to call office. GREG Piña Jennifer, RN 09/24/2024 9:27 AM Signed Unable to reach patient after several attempts. Letter mailed asking patient call the office. GREG Foy Tara, RN 09/26/2024 4:36 PM Addendum Okay to close encounter as we have been unsuccessful in reaching patient and have mailed Pt letter? Bruxie message read by patient.Please advise. GREG Piña Emily, APRN.CNP 09/29/2024 10:32 AM Signed Ok to close. Please call patient once more and review risks of uterine hyperplasia and malignancy. Strongly recommend follow up for discussion of this. Vita Wahl APRN.CNP Allergies As of Date: 09/03/2024 Noted Allergy Reaction NAPROXEN 04/10/2022 4 - Hives 7 - Swelling 12 - Shortness of Breath MOBIC (MELOXICAM) 04/10/2022 7 - Swelling 9 - Itching Date Reviewed: 08/27/2024 Reviewed by: Vita Wahl APRN.CNP - Fully Assessed Reason for Visit: Patient Update [1234] Prescriptions as of 09/29/2024 - Cholecalciferol, Vitamin D3, 50 mcg (2,000 unit) cap Take 1 capsule by mouth once daily. 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] 06/05/2023 Urinary frequency [R35.0] 08/14/2023 Microscopic hematuria [R31.29] 08/14/2023 Nocturia [R35.1] 08/14/2023 Pelvic pressure in female [R10.2] 08/14/2023 Dyspareunia in female [N94.10] 08/14/2023 Fibroids, submucosal [D25.0] 08/07/2024 Paratubal cyst [N83.8] 08/07/2024 Encounter Status:Closed by ELIZABETH CALDERÓN on 09/29/24 [facility] CNOVon 08-27-2024 CNOV Office Visit (OBGYWM ) FRANNY ZACARIAS ([id number]) 1980 F Date Time Provider Department 08/27/24 4:00 PM VITA WAHL OBGREG During your visit today, we recorded the following information about you: Blood pressure Weight 130/74 65.6 kg Vita Wahl APRN.CNP 08/27/2024 4:56 PM Signed Digital Sales Director offered: Patient declines. Meléndez is a 44 year old who presents today for an endometrial biopsy for post menopausal bleeding. test: negative UNIVERSAL PROTOCOL / SAFETY CHECKLIST Procedure to be Performed: Endometrial Biopsy Sign In: A Moment of CARE was completed. Personnel directly involved with the procedure wore the appropriate PPE (Personal Protective Equipment). Patient/Surrogate Stated/Verified: PATIENT VERIFIED(optional for EMERGENT procedures): Patient name, Date of , Relevant allergies, and The intended procedure Time Out Communication: Intended patient and procedure match the source documents. Consent documented and matches the intended procedure. Sign Out: SIGN OUT (optional for EMERGENT procedures): No specimen collected. All instruments, equipment, possible retained foreign bodies accounted for. Post-procedure follow-up management communicated and Plan of Care Visit completed when applicable. Vita Wahl APRN.MINISTER ASSISTANT PROCEDURE: EXTERNAL GENITALIA: Normal in appearance + 1 cm cyst to left inferior perineum, no erythema VAGINA: Normal in appearance without lesions BIOPSY: Speculum placed into the vagina with excellent visualization of the cervix. Cervix cleaned with betadine. Anterior lip of cervix grasped with single toothed tenaculum. + brown flat irregular lesion noted to 1:00 position of cervix. Due to severe cervical stenosis, procedure was unable to be performed. Procedure Summary: Patient tolerated procedure well. ASSESSMENT: post menopausal bleeding PLAN: Recommend hysteroscopy D+C for further eval of PMB. Follow up on cervical lesion. Vita Wahl APRN.Latanya Helms MA 08/27/2024 3:56 PM Signed YOUR RECOVERY After your biopsy you may have: Vaginal bleeding (less than a normal menstrual period) Mild cramping Do NOT put anything in the vagina for 1 week after your endometrial biopsy. This includes: tampons douches and refraining from having sexual intercourse If you have any discomfort, you may take an over the counter pain medication (motrin, advil, ibuprofen, tylenol, etc). If this does not relieve your discomfort, contact the office. It is okay to wear a sanitary pad until the discharge and spotting stops. RISKS Although problems seldom occur with endometrial biopsies, there can be some complications. You may feel faint during and shortly after the procedure as well as have some bleeding after the procedure. There is also a risk of infection after the procedure. These complications are rare and can be easily treated. You should contact you doctor is you have any of the following: Heavy bleeding (more than your normal period) Bleeding with clots Severe abdominal pain Fever (more than 100.4F) Foul smelling vaginal discharge RESULTS We will have the results of your biopsy in 1-2 weeks. If you do not hear the results of your biopsy after 2 weeks, please contact the office for the results. If you have any additional questions or concerns please do not hesitate to contact the office. Referring Provider: VITA WAHL [[id number]] Allergies As of Date: 08/27/2024 Noted Allergy Reaction NAPROXEN 04/10/2022 4 - Hives 7 - Swelling 12 - Shortness of Breath MOBIC (MELOXICAM) 04/10/2022 7 - Swelling 9 - Itching Date Reviewed: 08/27/2024 Reviewed by: Vita Wahl APRN.MINISTER ASSISTANT - Fully Assessed Reason for Visit: Endometrial Biopsy [2631] Cmt: Primary Visit Diagnosis:Postmenopau keshav bleeding [N95.0] Order(s):UA DIP,URINE HCG (POC) [[id number]] Order #: [id number]. #:[id number] Prescriptions as of 08/27/2024 - Cholecalciferol, Vitamin D3, 50 mcg (2,000 unit) cap Take 1 capsule by mouth once daily. 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 Normal [facility] UA DIP,URINE HCG (POC)on Beta HCG ( test) Ql (U) Negative Negative [facility] Comment on above: Location:[facility], [address], [place], [address] Head Soft Sugar Operator (POCT) Internal QC OK [facility] Location:[facility], [address], [place], [address] [facility] POINT OF CARE [facility] FRANNY ZACARIAS ([id number]) 1980 F Date Time Provider Department 08/18/24 9:15 AM [place] [facility] your visit today, we recorded the following information about you: Nilda Garcia LPN 08/18/2024 9:18 AM Signed Patient presents for Hepatitis B vaccine. Denies any problems at this time. Tolerated injection well. Nilda Garcia LPN Referring Provider: DAYTON BHATIA [[id number]] Allergies As of Date: 08/18/2024 Noted Allergy Reaction NAPROXEN 04/10/2022 4 - Hives 7 - Swelling 12 - Shortness of Breath MOBIC (MELOXICAM) 04/10/2022 7 - Swelling 9 - Itching Date Reviewed: 07/31/2024 Reviewed by: Vita Wahl APRN.MINISTER ASSISTANT - Fully Assessed Reason for Visit: Imm/Inj [58] Primary Visit Diagnosis:Encounter for immunization [Z23] Prescriptions as of 08/18/2024 - Cholecalciferol, Vitamin D3, 50 mcg (2,000 unit) cap Take 1 capsule by mouth once daily. 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] 06/05/2023 Urinary frequency [R35.0] 08/14/2023 Microscopic hematuria [R31.29] 08/14/2023 Nocturia [R35.1] 08/14/2023 Pelvic pressure in female [R10.2] 08/14/2023 Dyspareunia in female [N94.10] 08/14/2023 Fibroids, submucosal [D25.0] 08/07/2024 Paratubal cyst [N83.8] 08/07/2024 Encounter Status:Closed by NILDA GARCIA on 08/18/24 [facility] Chay 08-08-2024 CNPN Telephone (OBGYWM) FRANNY ZACARIAS ([id number]) 1980 F Date Time Provider Department 08/08/24 VITA WAHL During your visit today, we recorded the following information about you: Allergies As of Date: 08/08/2024 Noted Allergy Reaction NAPROXEN 04/10/2022 4 - Hives 7 - Swelling 12 - Shortness of Breath MOBIC (MELOXICAM) 04/10/2022 7 - Swelling 9 - Itching Date Reviewed: 07/31/2024 Reviewed by: Vita Wahl APRN.MINISTER ASSISTANT - Fully Assessed Reason for Visit: Results [95] Primary Visit Diagnosis:Postmenopau keshav bleeding [N95.0] Order(s):ENDOMETRIAL BIOPSY [[id number]] Order #: [id number] Prescriptions as of 08/08/2024 - Cholecalciferol, Vitamin D3, 50 mcg (2,000 unit) cap Take 1 capsule by mouth once daily. 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 The uterus is anteverted and measures 84 mm x 60 mm x 46 mm. The myometrium is heterogenous. The endometrial thickness is 2.3 mm. There is an an anterior midline submucous fibroid that measures 41 mm x 40 mm x 40 mm. The right ovary measures 16 mm x 15 mm x 10 mm. There is a right simple paraovarian/paratubal cyst that measures 14 mm x 12 mm x 12 mm. The left ovary measures 21 mm x 20 mm x 10 mm. There is no free fluid visualized. Technique: Three dimensional imaging was created on a dedicated stand-alone 3D workstation with images created and archived, and supervised and reviewed by the interpreting physician utilizing images from a US Scan performed on 08/07/24. Recommendations Consider SIS for further evaluation of endometrial cavity if clinically indicated. Simple paraovarian/paratubal cyst, no follow up imaging is needed. 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 View: Adequate visualization Uterus Uterus: Visualized Uterus position: anteverted Description of uterine malformations: arcuate Myometrium: heterogeneous Endometrium: normal Cervix details: normal Uterus length 84 mm Uterus width 46 mm Uterus height 60 mm Uterus Vol 121.5 cm Endometrial thickness, total 2.3 mm Fibroids: Fibroids identified Uterine fibroid D1 41 mm Uterine fibroid D2 40 mm Uterine fibroid D3 40 mm Uterine fibroid mean 40.2 mm Uterine fibroid vol 34.040 cm Uterine fibroids findings: Anterior midline Submucous, visualized without fluid enhancement Polyps: No polyps identified Right Ovary Rt ovary: Visualized Rt ovary morphology: postmenopausal atrophic Rt ovary D1 16 mm Rt ovary D2 15 mm Rt ovary D3 10 mm Rt ovary Vol 1.2 cm Rt ovarian cyst D1 14 mm Rt ovarian cyst D2 12 mm Rt ovarian cyst D3 12 mm Rt ovarian cyst mean 12.7 mm Rt ovarian cyst vol 1.056 cm Rt ovarian cyst findings: Simple paraovarian/paratubal cyst Left Ovary Lt ovary: Visualized Lt ovary morphology: postmenopausal atrophic Lt ovary D1 21 mm Lt ovary D2 20 mm Lt ovary D3 10 mm Lt ovary Vol 2.1 cm Lt ovarian cyst(s): No cysts identified Cul de Sac Visualized. no free fluid visualized Procedure To characterize the arcuate uterus, three dimensional imaging was created on a dedicated stand-alone 3D workstation with images created and archived, and supervised and reviewed by the interpreting physician utilizing images from an ultrasound scan performed today. Performed By: France Hopson RDMS Read By: Louis Howard M.D. MATERNAL MEDICINE [facility] Radiology Study observation (narrative) [facility] CNOVon 07-31-2024 CNOV Office Visit (OBGYWM ) FRANNY ZACARIAS ([id number]) 1980 F Date Time Provider Department 07/31/24 2:45 PM VITA WAHL OBGREG During your visit today, we recorded the following information about you: Blood pressure Weight 110/70 64.9 kg Vita Wahl, POLA.MINISTER ASSISTANT 07/31/2024 3:34 PM Addendum Franny Zacarias is a 44 year old female who presents for problem visit for postmenopausal bleeding. HPI: Franny presents to discuss postmenopausal bleeding. LMP 2021. FSH 96.2, estradiol <24 on 02/09/23. She started having bleeding about 2 weeks ago that lasted 3 days. It was a light flow with some cramping. She does experience mild pelvic pain, that ranges from a 5-6. She reports no pain today. A1C, TSH normal 11/29/2023 OB History T0 L0 SAB0 IAB0 Ectopic0 Multiple0 Live Births0 Comment: menarche age 16 or 17 Drugless Doctor History LMP: 05/08/2022, Postmenopausal Age at Menarche: Age at First : Age at Menopause: Drugless Doctor History Comments: Sexual Activity: Yes; Male Contraception: No contraception data on record PAST MEDICAL HISTORY Diagnosis Date Other constipation Solitary cyst of breast 08/20/2001 right breast Urethral diverticulum 05/18/2021 Seeing uro Urinary urgency 05/18/2021 PAST SURGICAL HISTORY Procedure Laterality Date COLONOSCOPY SCREENING 08/2021 FAMILY HISTORY Problem Relation Age of Onset Cancer Mother ovarian cancer w/ mets; Cervical Cancer Mother Hypertension Paternal Grandmother Hyperlipidemia Paternal Grandmother other (other) Paternal Grandmother pre-diabetes Social History Tobacco Use Smoking status: Never Smokeless tobacco: Never Vaping Use Vaping status: Never Used Substance Use Topics Alcohol use: Not Currently Comment: rare Drug use: Never Current Outpatient Medications Medication Sig Cholecalciferol, Vitamin D3, 50 mcg (2,000 unit) cap Take 1 capsule by mouth once daily. (Patient not taking: Reported on 07/31/2024) No current facility-administered medications for this visit. 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 As applicable, any other physician, advance practice provider, medical student, or other health professional student that will be observing or involved in the sensitive examination for educational or training purposes was discussed with the Patient or Authorized Media Relations Coordinator. The Patient or Authorized Media Relations Coordinator has agreed to proceed with the sensitive examination. (Sensitive examination includes inspection and/or palpation of the breasts, pelvis, prostate and anorectal regions). EXAM: BP 110/70 Wt 143 lb (64.9kg) LMP 05/08/2022 GENERAL: pleasant, female in no apparent distress HEENT: Normocephalic, atraumatic, mucus membranes moist, and no lesions CHEST: Normal inspiratory effort PELVIC: external genitalia normal, normal Bartholin's glands, urethra, [place]'s glands, + brown flat irregular lesion to 1:00 position of cervix, + 1 cm vulvar cyst to inferior left perineum - tenderness with palpation, good vaginal support, physiologic discharge present, normal appearing perineal body and perianal region BIMANUAL: uterus normal size, shape and consistency, no adnexal masses, and non-tender NEURO: alert and oriented x3,exam grossly non-focal EXTREMITIES: normal ASSESSMENT AND PLAN: 1. Postmenopausal bleeding - ICD9: 627.1, ICD10: N95.0 (primary diagnosis) - Declines EMB today - reports she is concerned about pain and would prefer this to be done under sedation. Consider hysteroscopy D+C based on ultrasound results - PAP TEST - Cervical lesion noted. - Mother with ovarian cancer. 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 findings negative Vulvar cyst - ICD9: 624.8, ICD10: N90.7 - Keep area clean and dry - Apply warm compresses - Worsening infection signs reviewed - to notify if worsening - CEPHALEXIN 500 MG CAPSULE Vita Wahl APRN.CNP Medical Decision Making: Problems: Moderate: New problem with uncertain prognosis Data: Unique test result(s) reviewed: 3+ Unique test(s) ordered: 1 Risk: Low: Low risk from testing/treatment Moderate: Drug management Medical Decision Making Level: 4 - Moderate Vita Wahl APRN.CNP 07/31/2024 2:56 PM Signed Calcium and Vitamin D Supplementation (from the National Institutes of Health Office of Dietary Supplements 2010) Calcium is required by the body for blood vessel, muscle, hormone and nerve functioning. Most (more content not included)... Normal [facility] HIGH RISK HUMAN PAPILLOMA JOHNSON (HPV), PCR FOR DETECTION AND GENOTYPINGon 07-31-2024 HPV 16 Ag Ql (Unsp spec) Not detected Normal Not detected [facility] Comment on above: Order Comment: Speci men Type: FLUID SPECIMENOrdering Facility: [facility] Address: [address] [place] [address] Performed By: #### H PVHRT ####[facility] LABCLIA [id number] [address] [place] HPV 18 Ag Ql (Unsp spec) Not detected Normal Not detected [facility] Comment on above: Order Comment: Speci men Type: FLUID SPECIMENOrdering Facility: [facility] Address: [address] [place] [address] Performed By: #### H PVHRT ####[facility] LABCLIA [id number] [address] HPV 31+33+35+39+45+51+52+ 56+58+59+66+68 DNA FOUZIA+probe Ql (Cvx) Not detected Normal Not detected [facility] Comment on above: Order Comment: Speci men Type: FLUID SPECIMENOrdering Facility: [facility] Address: [address] [place] [address] Result Comment: High Risk HPV Other Type includes HPV types 31, 33, 35, 39, 45, 51, 52, 56, 58, 59, 66 and 68. Performed By: #### H PVHRT ####[facility] LABCLIA [id number] [address] [place] PAP TESTon 07-31-2024 ADEQUACY Normal [facility] Comment on above: Order Comment: Speci men Type: FLUID SPECIMENOrdering Facility: [facility] Address: [address] [place] [address] Result Comment: Sati sfactory for interpretation. No endocervical component Performed By: #### L [id number] ####[facility]ORY[facility] [id number] [address] LABCLIA [id number] [place] [address] [place] CASE REPORT Normal [facility] Comment on above: Order Comment: Speci men Type: FLUID SPECIMENOrdering Facility: [facility] Address: [address] [place] [address] Result Comment: Gyne cologic Cytology Report Case: [id number] Authorizing Provider: Vita Wahl APRN.MINISTER ASSISTANT Collected: 07/31/2024 03:16 PM Ordering Location: OB/Gynecology Received: 07/31/2024 04:20 PM First Screen: Ashlee Lema, CT, ASCP Pathologist: Lyla Grossman MD Specimen: Pap Test, ThinPrep, Cervix Performed By: #### L [id number] ####[facility]ATORYCLIA [id number] [address] LABCLIA [id number] [place] [address] [place] CLINICAL HISTORY, CYTOLOGY, DIRECTOR OF STUDENT FINANCIAL AID Normal [facility] Comment on above: Order Comment: Speci men Type: FLUID SPECIMENOrdering Facility: [facility] Address: [address] [place] [address] Result Comment: Abno rmal Bleeding (Describe) Post Menopausal Postmenopausal bleeding Performed By: #### L [id number] ####[facility] LABORATORYCLIA [id number] [place] [address] [place] LABCLIA [id number] [place] [address] [place] FINAL PERFORMING LAB Normal [facility] Comment on above: Order Comment: Speci men Type: FLUID SPECIMENOrdering Facility: [facility] Address: [address] [place] [address] Result Comment: Tech nical component, chemical manager screening performed at [facility], [address] [place], [place] [id number] CLIA# [id number] Diagnostic interpretation performed at [facility], [address] [facility], [place] [address] CLIA# [id number] Wireless Operator: Ila Ibarra M.D. Performed By: #### L [id number] ####[facility] [id number] [address] LABCLIA [id number] [place] [address] [place] INTERPRETATION, CYTOLOGY, DIRECTOR OF STUDENT FINANCIAL AID Normal [facility] Comment on above: Order Comment: Speci men Type: FLUID SPECIMENOrdering Facility: [facility] Address: [address] [place] [address] Result Comment: Nega tive for intraepithelial lesion or malignancy. Performed By: #### L [id number] ####[facility] [id number] [address] LABCLIA [id number] [place] [address] [place] PAP DISCLAIMER COMMENT The Pap Smear is a screening test for cervical cancer. False negative results occur with all screening tests, emphasizing the need for rescreening at recommended intervals, and clinical correlation. Normal [facility] Comment on above: Order Comment: Speci men Type: FLUID SPECIMENOrdering Facility: [facility] Address: [address] [place] [address] Performed By: #### L [id number] ####[facility] [id number] [address] LABCLIA [id number] [place] [address] [place] PAP CRYSTAL GROWING TECHNICIAN COMMENT This specimen has been analyzed by the ThinPrep Imaging System, an automated imaging and review system, which assists the laboratory in evaluating cells on ThinPrep Pap tests. Following automated imaging, selected voss from every slide are reviewed by a chemical manager. Normal [facility] Comment on above: Order Comment: Speci men Type: FLUID SPECIMENOrdering Facility: [facility] Address: [address] [place] [address] Performed By: #### L [id number] ####[facility]ORYCLIA [id number] [place] [id number] [place] [facility] LABCLIA [id number] [address] [id number] [facility] CNPJackie 07-15-2024 CNPN Telephone ([facility]) FRANNY ZACARIAS ([id number]) 1980 F Date Time Provider Department 07/15/24 [facility] During your visit today, we recorded the following information about you: JadeShana 07/15/2024 11:26 AM Signed Patient reports X2 attempts to request hepatitis B vaccines orders from PCP's office since April 2024. States that she spoke with operators informed her that orders were needed prior to schedule. No messages have been documented or routed to PCP. Please notify patient if she is able to schedule without orders or if she needs to complete an office visit first. OK to communicate with patient via phone or MyChart. Sharmaine Felix MA 07/15/2024 11:43 AM Signed Patient has completed HEP B 06/14/2023 and 08/02/2023. Order already in the system for her 3rd. Just needs nurse visit. Sharmaine Felix MA Allergies As of Date: 07/15/2024 Noted Allergy Reaction NAPROXEN 04/10/2022 4 - Hives 7 - Swelling 12 - Shortness of Breath MOBIC (MELOXICAM) 04/10/2022 7 - Swelling 9 - Itching Date Reviewed: 02/07/2024 Reviewed by: Lana Patterson MA - Fully Assessed Reason for Visit: Immunizations [194] Cmt: Hepatitis B Vaccines Prescriptions as of 07/24/2024 - Cholecalciferol, Vitamin D3, 50 mcg (2,000 unit) cap Take 1 capsule by mouth once daily. 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 A 1 year screening mammogram is recommended. Tanisha kay/real:03/24/2024 19:03:28 [employer] Pipe Layer(s): RT Luis Angel(Diana)(M), [facility] letter sent: Normal over 40 Mammogram BI-RADS: Category 1: Negative Multiple national specialty organizations have released breast cancer screening guidelines for women at average risk for developing breast cancer - guidelines that are based on both evidence and opinion, yet differ on when to start and how often to screen for breast cancer. With representation from Breast Imaging, Internal Medicine, Women's Health, Family Medicine, and Medical/Surgical Oncology, the [facility] has carefully reviewed the data and reached the following consensus: 1) All women should engage in shared decision-making with their providers to decide when to start and how often to screen; 2) All women should have the opportunity to start screening mammography at age 40; 3) For women ages 45-55, we recommend annual screening mammograms; 4) For women ages 55 and over, we support both the transition from an annual to a biennial interval if this aligns more with patient's values and preferences, or continuation with annual screening; 5) All women should discuss with their providers when to stop screening mammograms. Telecommunicator Supervisor: Real Reisribarry Date/Time: Mar 24 2024 11:01A Dictated by: TANISHA KANG MD This examination was interpreted and the report reviewed and electronically signed by: TANISHA KANG MD on Mar 24 2024 7:03PM [facility] DIVISION OF RADIOLOGY * * *Final Report* * * DATE OF EXAM: Mar 24 2024 11:27AM [facility] - [facility] SCREENING W [place] / PROCEDURE REASON: Encounter for screening mammogram for breast cancer * * * * Physician Interpretation * * * * RESULT: #[id number] - [facility] SCREENING W [place] BILATERAL DIGITAL SCREENING MAMMOGRAM TOMOSYNTHESIS WITH CAD: 03/24/2024 HISTORY: Encounter For Screening Mammogram For Breast Cancer / Screening Mammogram-Patient reports NO symptoms. /priors available for comparison /SEE TECH NOTE. RESULT: TECHNIQUE: The study was acquired using full field digital technology and interpreted from soft copy. Digital Breast Tomosynthesis (DBT) images were obtained and used to assist in the interpretation of this examination. Current study was also evaluated with a Computer Aided Detection (CAD). Comparison is made to exams dated: 11/09/2022 mammogram and 12/07/2021 mammogram - [facility]. The breasts are heterogeneously dense, which may obscure small masses. No significant masses, calcifications, or other findings are seen in either breast. There has been no significant interval change. DIVISION OF RADIOLOGY Provider, [facility] - 03/24/2024 * * *Final Report* * * DATE OF EXAM: Mar 24 2024 11:27AM [facility] - [facility] SCREENING W [place] / PROCEDURE REASON: Encounter for screening mammogram for breast cancer * * * * Physician Interpretation * * * * RESULT: #[id number] - [facility] SCREENING W [place] BILATERAL DIGITAL SCREENING MAMMOGRAM TOMOSYNTHESIS WITH CAD: 03/24/2024 HISTORY: Encounter For Screening Mammogram For Breast Cancer / Screening Mammogram-Patient reports NO symptoms. /priors available for comparison /SEE TECH NOTE. RESULT: TECHNIQUE: The study was acquired using full field digital technology and interpreted from soft copy. Digital Breast Tomosynthesis (DBT) images were obtained and used to assist in the interpretation of this examination. Current study was also evaluated with a Computer Aided Detection (CAD). Comparison is made to exams dated: 11/09/2022 mammogram and 12/07/2021 mammogram - [facility]. The breasts are heterogeneously dense, which may obscure small masses. No significant masses, calcifications, or other findings are seen in either breast. There has been no significant interval change. IMPRESSION IMPRESSION: NEGATIVE There is no mammographic evidence of malignancy. A 1 year screening mammogram is recommended. Tanisha kay/real:03/24/2024 19:03:28 [place] [employer] Layer(s): RT Luis Angel(R)(M), [facility] letter sent: Normal over 40 Mammogram BI-RADS: Category 1: Negative Multiple national specialty organizations have released breast cancer screening guidelines for women at average risk for developing breast cancer - guidelines that are based on both evidence and opinion, yet differ on when to start and how often to screen for breast cancer. With representation from Breast Imaging, Internal Medicine, Women's Health, Family Medicine, and Medical/Surgical Oncology, the [facility] has carefully reviewed the data and reached the following consensus: 1) All women should engage in shared decision-making with their providers to decide when to start and how often to screen; 2) All women should have the opportunity to start screening mammography at age 40; 3) For women ages 45-55, we recommend annual screening mammograms; 4) For women ages 55 and over, we support both the transition from an annual to a biennial interval if this aligns more with patient's values and preferences, or continuation with annual screening; 5) All women should discuss with their providers when to stop screening mammograms. Telecommunicator Supervisor: Real Transcribe Date/Time: Mar 24 2024 11:01A Dictated by: TANISHA KANG MD This examination was interpreted and the report reviewed and electronically signed by: TANISHA KANG MD on Mar 24 2024 7:03PM EST [facility] Radiology Study observation (narrative) [facility] DBT Breast - bilateral scree ningOrdered By: Ccf Provider on 03-24-2024 [facility] HIV 1+2 Ab IA Qlon 4 HIV 1 and 2 Ab IA.rapid Nom (S/P/Bld) Normal [facility] Comment on above: Order Comment: Speci men Type: BLOOD SPECIMEN [facility]ing [facility] Address: [address] [place] [address] Result Comment: Test not indicated. Performed By: #### 3 1201-7 #### [facility] CLIA [id number] [address] [place] [address] [place] HIV 1+2 Ab+HIV1 p24 Ag IA Ql Non-Reactive Normal Nonreactive [facility] Comment on above: Order Comment: Speci men Type: BLOOD SPECIMEN Ordering Facility[facility] Address: [address] [place] [address] Performed By: #### 3 1201-7 #### [facility] CLIA [id number] [address] [place] [address] [place] HIV immunoassay testing algorithm interpretation (S/P/Bld) [Interp] [facility] Comment on above: Order Comment: Speci men Type: BLOOD SPECIMEN Ordering Facility[facility] Address: [address] [place] [address] Result Comment: No e vidence of HIV-1 or HIV-2 infection. Should recent infection be suspected, repeat testing may be considered 2-3 weeks after this draw. [place] Rev. Code 3701.243(E): This information has been disclosed to you from confidential records protected from disclosure by state law. ???You shall make no further disclosure of this information without the specific, written, and informed release of the individual to whom it pertains or as otherwise permitted by state law. A general authorization for the release of medical or other information is not sufficient for the purpose of the release of HIV test results or diagnoses. Performed By: #### 3 1201-7 #### [facility] CLIA [id number] [address] [place] [address] [place] XR CHEST 2V FRONTAL/LATon XR CHEST 2V FRONTAL/LAT * * *Final Report* * * DATE OF EXAM: Feb 07 2024 4:32PM SPX [id number] - XR CHEST 2V FRONTAL/LAT / PROCEDURE REASON: TB lung, latent * * * * Physician Interpretation * * * * RESULT: EXAMINATION: CHEST RADIOGRAPH (2 VIEW FRONTAL and LATERAL) CLINICAL HISTORY: TB lung, latent MQ: XC2_6 EXAM DATE/TIME: 02/07/2024 4:32 PM COMPARISON: Chest x-ray June 02, 2023 RESULT: See impression. IMPRESSION: The lungs are clear. There is no pleural effusion. The cardiomediastinal silhouette is within limits of normal. Osseous structures are unremarkable. Transcribed Using Voice Recognition Transcribe Date/Time: Feb 07 2024 4:36P Dictated by: VENECIA GREEN MD This examination was interpreted and the report reviewed and electronically signed by: VENECIA GREEN MD on Feb 07 2024 4:37PM EST [id number] [facility] XR Chest PA and Lateralon IMPRESSION: The lungs are clear. There is no pleural effusion. The cardiomediastinal silhouette is within limits of normal. Osseous structures are unremarkable. Transcribed Using Voice Recognition Transcribe Date/Time: Feb 07 2024 4:36P Dictated by: VENECIA GREEN MD This examination was interpreted and the report reviewed and electronically signed by: VENECIA GREEN MD on Feb 07 2024 4:37PM [facility] RADIOLOGY * * *Final Report* * * DATE OF EXAM: Feb 07 2024 4:32PM SPX [id number] - XR CHEST 2V FRONTAL/LAT / PROCEDURE REASON: TB lung, latent * * * * Physician Interpretation * * * * RESULT: EXAMINATION: CHEST RADIOGRAPH (2 VIEW FRONTAL & LATERAL) CLINICAL HISTORY: TB lung, latent MQ: XC2_6 EXAM DATE/TIME: 02/07/2024 4:32 PM COMPARISON: Chest x-ray June 02, 2023 RESULT: See impression. [facility] RADIOLOGY Provider, Ralph Méndez - 02/07/2024 * * *Final Report* * * DATE OF EXAM: Feb 07 2024 4:32PM SPX [id number] - XR CHEST 2V FRONTAL/LAT / PROCEDURE REASON: TB lung, latent * * * * Physician Interpretation * * * * RESULT: EXAMINATION: CHEST RADIOGRAPH (2 VIEW FRONTAL & LATERAL) CLINICAL HISTORY: TB lung, latent MQ: XC2_6 EXAM DATE/TIME: 02/07/2024 4:32 PM COMPARISON: Chest x-ray June 02, 2023 RESULT: See impression. IMPRESSION IMPRESSION: The lungs are clear. There is no pleural effusion. The cardiomediastinal silhouette is within limits of normal. Osseous structures are unremarkable. Transcribed Using Voice Recognition Transcribe Date/Time: Feb 07 2024 4:36P Dictated by: VENECIA GREEN MD This examination was interpreted and the report reviewed and electronically signed by: VENECIA GREEN MD on Feb 07 2024 4:37PM EST [facility] Radiology Study observation (narrative) [facility] XR Chest PA and LateralOrder ed By: Ccf Provider on 02-07-2024 [facility] HbA1c (Bld)on 11-29-2023 Average glucose Estimated from glycated hemoglobin (Bld) [Mass/Vol] 100 mg/dL [facility] HbA1c (Bld) [Mass fraction] 5.1 % 4.3 - 5.6 % [facility] CNPNon 06-18-2023 CNPN Telephone ([facility]) FRANNY ZACARIAS ([id number]) 1980 F Date Time Provider Department 06/18/23 JONAH ONEAL [facility] During your visit today, we recorded the following information about you: Jonah Oneal APRN.MINISTER ASSISTANT 06/18/2023 4:10 PM Signed Heb B titers do not show immunity- I would advise a repeat series Ila Marino 06/19/2023 2:37 PM Signed Left voicemail on cell phone to call back Winter Rod MA 06/30/2023 3:47 PM Signed Called pt and let her that the Hep B titer showed no immunity and that she needed to have a repeat Hep B series. Pt states that she is already getting the Hep B series somewhere else. Winter Matt CMA Allergies As of Date: 06/18/2023 Noted Allergy Reaction NAPROXEN 04/10/2022 4 - Hives 7 - Swelling 12 - Shortness of Breath MOBIC (MELOXICAM) 04/10/2022 7 - Swelling 9 - Itching Date Reviewed: 06/02/2023 Reviewed by: Chayito Davies, RN - Fully Assessed Reason for Visit: Results [95] Prescriptions as of 06/30/2023 - L.acidophilus-L.rhamn osus (FLORAJEN WOMEN) 15 billion cell capsule Take 1 capsule by mouth once daily. - Ibuprofen 200 mg cap Take by mouth every 6 hours as needed. - acetaminophen/pyrilam /pamabrom (PAMPRIN MULTI-SYMPTOM ORAL) Take by mouth. - linaclotide (LINZESS) 145 mcg capsule Take 1 capsule by mouth once daily. Problem List As Of Date 06/18/2023 Noted Resolved Other constipation [K59.09] Urethral diverticulum [N36.1] 05/18/2021 Urinary urgency [R39.15] 05/18/2021 Screening for diabetes mellitus [Z13.1] 05/18/2021 Ankle instability, right [M25.371] 04/26/2022 Sprain of anterior talofibular ligament of righ*04/26/2022 TB lung, latent [Z22.7] 06/05/2023 Encounter Status:Closed by JONAH ONEAL on 06/18/23 [facility] CNOVon 06-02-2023 CNOV Office Visit ([facility] ) FRANNY ZACARIAS ([id number]) 1980 F Date Time Provider Department 06/02/23 2:40 PM LISA BERMUDEZ During your visit today, we recorded the following information about you: Temperature Pulse Respiration Blood pressure 98.5 degrees 72/minute 20/minute 114/83 Weight 63.5 kg Agnes Kerr LPN 06/02/2023 3:53 PM Signed TB read positive 50mm. The area is red/swollen/warm to touch/itchy. I notified the provider and the patient was registered to be seen. FAHEEM Bill Jessica L, APRN.RODRIGO 06/02/2023 3:46 PM Addendum -Go to [facility] Emergency Department and inform them you have out-patient blood work and an X-ray ordered. Once I have this information - I will contact you with results. The results will filter into your [employer] account so you can print them out for school. -warm compresses to the site Lisa Bermudez APRN.MINISTER ASSISTANT 06/02/2023 3:53 PM Signed June 02, 2023 Subjective Chief Complaint: Medication Problem (TB read positive/Pt came in today to have TB read and the spot came back red,warm to the touch,raised/) HPI: Franny Zacarias is a 43 year old female who presents today for positive TB skin test. Patient states that she received a PPD tuberculosis test in her left forearm 48 to 72 hours ago. Patient came in to have TB read. States that the area is tender to the touch swollen and red. States that there was itching to the site last night. Has had a PPD skin test years ago without a reaction. Denies any cold-like symptoms. 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 PAST MEDICAL HISTORY Diagnosis Date Other constipation Solitary cyst of breast 08/20/2001 right breast Urethral diverticulum 05/18/2021 Seeing uro Urinary urgency 05/18/2021 PAST SURGICAL HISTORY Procedure Laterality Date COLONOSCOPY SCREENING 08/2021 FAMILY HISTORY Problem Relation Age of Onset Cancer Mother ovarian cancer w/ mets; Cervical Cancer Mother Hypertension Paternal Grandmother Hyperlipidemia Paternal Grandmother other (other) Paternal Grandmother pre-diabetes Social History Tobacco Use Smoking status: Never Smokeless tobacco: Never Vaping Use Vaping Use: Never used Substance Use Topics Alcohol use: Not Currently Comment: rare Drug use: Never ALLERGIES Allergen Reactions Naproxen Hives, Swelling, Shortness of Breath Mobic [Meloxicam] Swelling, Itching There is no immunization history for the selected administration types on file for this patient. Current Medications: acetaminophen/pamabro m (MIDOL ORAL) Take by mouth as directed. (Patient not taking: No sig reported) acetaminophen/pyrilam /pamabrom (PAMPRIN MULTI-SYMPTOM ORAL) Take by mouth. (Patient not taking: No sig reported) Ibuprofen 200 mg cap Take by mouth every 6 hours as needed. L.acidophilus-L.rhamn osus (FLORAJEN WOMEN) 15 billion cell capsule Take 1 capsule by mouth once daily. (Patient not taking: Reported on 06/02/2023) linaclotide (LINZESS) 145 mcg capsule Take 1 capsule by mouth once daily. Review of Systems Constitutional: Negative for chills, fever and malaise/fatigue. HENT: Negative. Eyes: Negative. Respiratory: Negative. Cardiovascular: Negative. Skin: Pain and itching left forearm Objective BP 114/83 Pulse 72 Temp 98.5 Resp 20 Wt 140 lb (63.5kg) SpO2 98% LMP 05/08/2022 Physical Exam Vitals reviewed. Constitutional: General: She is not in acute distress. Appearance: Normal appearance. She is not ill-appearing, toxic-appearing or diaphoretic. HENT: Head: Normocephalic and atraumatic. Cardiovascular: Rate and Rhythm: Normal rate and regular rhythm. Heart sounds: Normal heart sounds. No murmur heard. No friction rub. No gallop. Pulmonary: Effort: Pulmonary effort is normal. No respiratory distress. Breath sounds: Normal breath sounds. No stridor. No wheezing, rhonchi or rales. Chest: Chest wall: No tenderness. Skin: General: Skin is warm and dry. Capillary Refill: Capillary refill takes less than 2 seconds. Neurological: Mental Status: She is alert and oriented to person, place, and time. Psychiatric: Mood and Affect: Mood normal. Behavior: Behavior normal. Thought Content: Thought content normal. Judgment: Judgment normal. Informed patient that this likely is an allergic reaction to the PPD solution however I cannot ignore the size of the redness surrounding the injection site. Therefore will proceed with chest x-ray and quant to [place] blood draw. Patient is in agreement with plan of care. ASSESSMENT/PLAN: 1. 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 Once I have this informatio (more content not included)... [facility] HBV surface Ab Ql (S)on 05-20 HBV surface Ab Qn (S) [facility] HEP B SURF ABon 06-02-2023 HBV surface Ab Ql (S) Negative [facility] MUMPS IGG ABon 06-01-2023 MuV IgG Ql (S) Positive Positive [facility] RUBELLA IGG ABon 06-01-2023 Rubella IgG, Qual Positive Positive [facility] RUBEOLA (MEASLES)IGGon 06-01 Measles Antibody, IGG Qualitative Positive Positive [facility] VARICELLA ZOSTER IGGon 06-01 Varicella Zoster IgG, Qual Positive Positive [facility] CNOVon 05-31-2023 [facility] FRANNY ZACARIAS ([id number]) 1980 F Date Time Provider Department 05/31/23 2:00 PM [facility] During your visit today, we recorded the following information about you: Ila Marino 06/08/2023 2:26 PM Signed Venipuncture left anticub tolerated well Referring Provider: SELF [200] Allergies As of Date: 05/31/2023 Noted Allergy Reaction NAPROXEN 04/10/2022 4 - Hives 7 - Swelling 12 - Shortness of Breath MOBIC (MELOXICAM) 04/10/2022 7 - Swelling 9 - Itching Date Reviewed: 02/09/2023 Reviewed by: Belinda Powell MA - Fully Assessed Primary Visit Diagnosis:Routine adult health maintenance [Z00.00] Order(s):HEP B SURF AB [SQAHBSAG] Order #: [id number] FUTURE VARICELLA ZOSTER IGG [SQVZVG] Order #: [id number] FUTURE RUBEOLA (MEASLES)IGG [SQMEASLG] Order #: [id number] FUTURE MUMPS IGG AB [SQMUMPSG] Order #: [id number] FUTURE RUBELLA IGG AB [SQRUBQNT] Order #: [id number] FUTURE HEP B SURF AB [SQAHBSAG] Order #: [id number]. #:[id number] VARICELLA ZOSTER IGG [SQVZVG] Order #: [id number]. #:[id number] RUBEOLA (MEASLES)IGG [SQMEASLG] Order #: [id number]. #:[id number] MUMPS IGG AB [SQMUMPSG] Order #: [id number]. #:[id number] RUBELLA IGG AB [SQRUBQNT] Order #: [id number]. #:[id number] Prescriptions as of 06/08/2023 - L.acidophilus-L.rhamn osus (FLORAJEN WOMEN) 15 billion cell capsule Take 1 capsule by mouth once daily. - Ibuprofen 200 mg cap Take by mouth every 6 hours as needed. - acetaminophen/pyrilam /pamabrom (PAMPRIN MULTI-SYMPTOM ORAL) Take by mouth. - linaclotide (LINZESS) 145 mcg capsule Take 1 capsule by mouth once daily. Problem List As Of Date 05/31/2023 Noted Resolved Other constipation [K59.09] Urethral diverticulum [N36.1] 05/18/2021 Urinary urgency [R39.15] 05/18/2021 Screening for diabetes mellitus [Z13.1] 05/18/2021 Ankle instability, right [M25.371] 04/26/2022 Sprain of anterior talofibular ligament of righ*04/26/2022 Medications Discontinued During This Encounter Prescriptions - acetaminophen/pamabro m (MIDOL ORAL) (Discontinued) No sig reported Encounter Status:Closed by JONAH ONEAL on 06/08/23 [facility] HBV surface Ab Ql (S)on 05-20 HBV surface Ab Qn (S) <3.50 [facility] Comment on above: Order Comment: Speci men Type: BLOOD SPECIMEN Ordering Facility: [facility] Address: [address] [place] [address] Result Comment: <8.5 mIU/mL: No serological evidence of immunity to Hepatitis B Virus. >/= 8.5 to <11.5 mIU/mL: No serological evidence of immunity to Hepatitis B Virus. >/= 11.5 mIU/mL: Consistent with serological evidence of immunity to Hepatitis B Virus. Performed By: #### 2 2322-2 #### [facility] CLIA [id number] [address] [place] [address] [place] HBV surface Ab Ser Qlon 05-20 HBV surface Ab Ql (S) Negative [facility] Comment on above: Order Comment: Speci men Type: BLOOD SPECIMEN Ordering Facility: [facility] Address: [address] [place] [address] Result Comment: No s erological evidence of immunity to Hepatitis B Virus. Performed By: #### 2 2322-2 #### [facility] CLIA [id number] [address] [place] [address] [place] MUMPS IGG ABon 05-31-2023 MuV IgG Ql (S) Positive Normal Positive [facility] Comment on above: Order Comment: Speci men Type: BLOOD SPECIMEN Ordering Facility: [facility] Address: [address] [place] [address] Result Comment: The result suggests recent or past exposure to Mumps virus or Mumps vaccination. The current test does not detect neutralizing antibodies. Positive result may also be seen due to presence of passively-transferred antibodies. Please correlate with patient's history. Performed By: #### M EASLG, VZVG2, MUMPSG, RUBIGG #### [facility] CLIA [id number] [address] [facility] [address] [id number] [address] [place] RUBELLA IGG ABon 05-31-2023 RUBELLA IGG AB, QUAL Positive Normal Positive [facility] Comment on above: Order Comment: [facility]: [facility]LOOD [facility]EN Ordering Facility: [facility] Address: [address] [place] [address] Result Comment: The result suggests recent or past exposure to Rubella virus or history of Rubella vaccination. Positive result may also be seen due to presence of passively-transferred antibodies. Please correlate with patient's history. Performed By: #### M EASLG, VZVG2, MUMPSG, RUBIGG #### [facility] CLIA [id number] [address] [place] RUBEOLA (MEASLES)IGGon 05-31 MEASLES IGG AB, QUAL Positive Normal Positive [facility] Comment on above: Order Comment: Speci [facility] Type: BLOOD SPECIMEN Ordering Facility: [facility] Address: [address] [place] [address] Result Comment: The result suggests recent or past exposure to Measles virus or Measles vaccination. The current test does not detect neutralizing antibodies. Positive result may also be seen due to presence of passively-transferred antibodies. Please correlate with patient's history. Performed By: #### M EASLG, VZVG2, MUMPSG, RUBIGG #### [facility] CLIA [id number] [address] [place] [address] STATES [facility] VARICELLA ZOSTER IGGon 05-31 VARICELLA ZOSTER IGG, QUAL Positive Normal Positive [facility] Comment on above: Order Comment: Speci [facility] Type: BLOOD SPECIMEN Ordering Facility: [facility] Address: [address] [place] [address] Result Comment: The result suggests recent or past exposure to Varicella-Zoster virus or chickenpox vaccination or zoster vaccination. Positive result may also be seen due to presence of passively-transferred antibodies. Please correlate with patient's history. Performed By: #### M EASLG, VZVG2, MUMPSG, RUBIGG #### [facility] CLIA [id number] [address] [place] CBC panel Auto (Bld)on 02-09 Erythrocyte distribution width (RBC) [Ratio] 12.3 % 11.5 - 15.0 % [facility] Hematocrit (Bld) [Volume fraction] 36.1 % 36.0 - 46.0 % [facility] Hemoglobin (Bld) [Mass/Vol] 12.2 g/dL 11.5 - 15.5 g/dL [facility] MCH (RBC) [Entitic mass] 30.2 pg 26.0 - 34.[address] [facility] MCHC (RBC) [Mass/Vol] 33.8 g/dL 30.5 - 36.0 g/dL [facility] MCV (RBC) [Entitic vol] 89.4 fL 80.0 - 100.[address] [facility] Nucleated RBC (Bld) [#/Vol] <0.01 k/uL [facility] Platelet mean volume (Bld) [Entitic vol] 10.4 fL 9.0 - 12.[address] [facility] Platelets (Bld) [#/Vol] 283 10*3/uL 150 - 400 k/uL [facility] RBC (Bld) [#/Vol] 4.04 10*6/uL 3.90 - 5.2 0 m/uL [facility] WBC (Bld) [#/Vol] 5.85 10*3/uL 3.70 - 11. 00 k/uL [facility] No Panel Informationon 04-10 [facility] EKGon 12-15-2021 Electrocardiogram Procedure Date and Time: 12/15/212122 Test Reason : STAT Blood Pressure : / mmHG Vent. Rate : 063 BPM Atrial Rate : 063 BPM P-R Int : 158 ms QRS Dur : 094 ms QT Int : 410 ms P-R-T Axes : 030 -29 -08 degrees QTc Int : 419 ms Normal sinus rhythm Low voltage QRS Borderline ECG When compared with ECG of 13-MAR-2014 21:32, No significant change was found Confirmed by FABIÁN VARGAS A. ([id number]) on 12/16/2021 7:45:11 AM Referred By: Boston Parker Confirmed By:Nasrin VARGAS M.D.FACC Bisi DDandT: 12/15/212122 TDandT: [facility] PATIENT NAME: FRANNY ZACARIAS Dr. [address] MEDICAL REC #: [id number] [place] [address] ADMIT DATE: DISCHARGE DATE: 12/15/21 ATTENDING EMMIE: Boston Parker DO ELECTROCARDIOGRAM REPORT CLB cc: [facility] PATIENT NAME: FRANNY ZACARIAS [address] MEDICAL REC #: [id number] [place] [address] ADMIT DATE: DISCHARGE DATE: 12/15/21 ATTENDING EMMIE: Boston Parker DO ELECTROCARDIOGRAM REPORT Normal [facility] Jayne 12-15-2021 EMERGENCY PHYSICIAN REPORT This is a preliminary report only, as the practitioner review and authentication has not occurred. Normal [facility] ER PHYSICIAN ASSESSMENT RECORDS : FlexChartData Event Time: 12/15/2021 21:15 Status: Signed [facility] Franny Zacarias [[id number]] Attending Physician / 1980 Chart (V2b) Chart created at 12/15/2021 21:11 by Boston Parker Chart closed at 12/15/2021 21:30 Entry in Emergency Department at 12/15/2021 19:47, departure at 12/15/2021 21:56 Patient Name: Franny Zacarias Record Number: [id number] Date: 12/15/2021 21:11 Entered Department at: 12/15/2021 19:47 Patient Seen at: 12/15/2021 20:13 Historian: Family and Patient PCP: [facility]. kvng [facility] Chief Complaint:allergic reaction starting this morning. started on Meloxicam last night and woke up with facial swelling. Triage Note reviewed and Initial Vital Signs reviewed. Temperature: 98.4 F (36.9 C). Pulse: 78. Respiratory Rate: 18. Blood-pressure: 122/78. Oxygen Saturation: 98%. History of Present Illness: Patient is a 41-year-old female presenting to the emergency department with suspected allergic reaction. Patient was started on meloxicam yesterday secondary to an ankle injury. Today she started with redness, swelling, itching to her face, neck, chest. She took some Benadryl which helped but then later on her [facility] PATIENT NAME: FRANNY ZACARIAS [address] MEDICAL REC #: [id number] [place] [address] EMERGENCY DEPARTMENT REPORT EMERGENCY DEPARTMENT PHYSICIAN itching and redness started to return. She did feel some pressure throughout her face, neck and chest with the symptoms as well. Denies any shortness of breath, no difficulty breathing or swallowing, no fevers or chills, denies starting any other new medications, denies any other complaints at this time. Review of Systems. All other systems reviewed and negative.. Past History, Medications, Allergies, Social History and Family History reviewed in nurses note. Medications: Reviewed RN Note. Allergies: Reviewed RN Note No Known Allergies( ) No Known Allergies( ) Social History: Reviewed RN Note. Family History: Reviewed RN Note Physical Examination: General: Alert; Oriented x 3. NAD HEENT: Eyes: PERRL; EOMI. Nose: Normal inspection. Oropharynx / Throat: Normal Pharynx, Moist mucous membranes. Patient does have mildly increased erythema to the face with minimal swelling. There is no angioedema present. Patient has normal phonation. No uvular edema noted.. Neck: Supple; Mild erythema noted to the neck as well. Respiratory: No Resp Distress and Normal Breath Sounds Cardio-Vascular: No murmur, No rub and RRR Abdomen: Non-tender and Soft Back: Non-tender Extremity: No edema and Normal Equal pulses; Cap refill andlt; 2 sec. Neurological: Alert, Oriented X3 Skin: No Petechiae, Warm and Dry; Patient has mild erythema noted to the face, neck, chest and slightly to the bilateral upper extremities as well. No obvious urticaria noted. No angioedema noted. Cardiogram: Interpreted by me. Interpretation: Normal sinus rhythm, rate of 63, left axis deviation, no acute ST elevation, QTc 419 Comparison: Unchanged from March 13, 2014. Medical Decision Making [facility] PATIENT NAME: FRANNY ZACARIAS [address] [place] MEDICAL REC #: [id number] [place] [address] EMERGENCY DEPARTMENT REPORT EMERGENCY DEPARTMENT PHYSICIAN After evaluation, patient has what appears to be an allergic reaction, likely to her meloxicam. She has had pruritic erythema that developed to her face, neck, chest and upper extremities. Symptoms improved initially with Benadryl but subsequently returned. She did have some associated pressure in her chest and neck with this itching, EKG was obtained because of this and ultimately is unremarkable. Patient was advised to discontinue her meloxicam. I will give her a prescription for a burst of prednisone. She was given a dose of prednisone while here in the emergency department. She will take Benadryl if needed as well. She is can follow closely with her PCP and will return to the emergency department immediately if any further concerns develop. Additional Information: Discussed Results, Diagnosis and Follow-Up with Patient and Family. Prescription given. Clinical Impression: 1. Acute allergic reaction, likely secondary to meloxicam Disposition: Discharged . MSE completed. I was the primary ED attending.. : Discharge Report Event Time: 12/15/2021 21:33 ===DISCHARGE REPORT=== : FlexChartData Event Time: 12/15/2021 21:15 : Discharge Report Event Time: 12/15/2021 21:33 Status: Draft Reasons to Return to the ER: (more content not included)... Normal [facility] [place] [facility] Supine and Uprigh ton 05-18-2021 IMPRESSION: Nonspecific though nonobstructive bowel gas pattern. Moderate stool burden. Telecommunicator Supervisor: DERIK Transcribe Date/Time: May 18 2021 1:54P Dictated by : MAE JACOB MD This examination was interpreted and the report reviewed and electronically signed by: MAE JACOB MD on May 18 2021 1:55PM EST DIVISION OF RADIOLOGY * * *Final Report* * * DATE OF EXAM: May 18 2021 1:51PM WOX [id number] - XR ABDOMEN 1V SUPINE / PROCEDURE REASON: Other constipation * * * * Physician Interpretation * * * * CLINICAL INDICATION: Constipation TECHNIQUE: Supine frontal radiograph of the abdomen. COMPARISON: None FINDINGS: Nonspecific though nonobstructive bowel gas pattern. Moderate stool burden primarily in the right colon. DIVISION OF RADIOLOGY Provider, Ralph shoemaker [place] - 05/18/2021 * * *Final Report* * * DATE OF EXAM: May 18 2021 1:51PM WOX [id number] - XR ABDOMEN 1V SUPINE / PROCEDURE REASON: Other constipation * * * * Physician Interpretation * * * * CLINICAL INDICATION: Constipation TECHNIQUE: Supine frontal radiograph of the abdomen. COMPARISON: None FINDINGS: Nonspecific though nonobstructive bowel gas pattern. Moderate stool burden primarily in the right colon. IMPRESSION IMPRESSION: Nonspecific though nonobstructive bowel gas pattern. Moderate stool burden. Telecommunicator Supervisor: DERIK Transcribe Date/Time: May 18 2021 1:54P Dictated by : MAE JACOB MD This examination was interpreted and the report reviewed and electronically signed by: MAE JACOB MD on May 18 2021 1:55PM EST [facility] Radiology Study observation (narrative) [facility] XR Abdomen Supine and Uprigh tOrdered By: [facility] Provider on 05-18-2021 [facility] Vital Signs Date Time Vital Sign Value Performing Clinician Facility 03-30-2025 10:06-0400 Body temperature 98.91 [degF] Dana Mcdowell PA-C Work Phone: [facility] 03-30-2025 10:06-0400 Diastolic blood pressure 76 mm[Hg] Dana Mcdowell PA-C Work Phone: [facility] 03-30-2025 10:06-0400 Heart rate 63 /min Dana Mcdowell PA-C Work Phone: [facility] 03-30-2025 10:06-0400 Respiratory rate 16 /min Dana Mcdowell PA-C Work Phone: [facility] 03-30-2025 10:06-0400 SaO2% (BldA) [Mass fraction] 97 % Dana Mcdowell PA-C Work Phone: [facility] 03-30-2025 10:06-0400 Systolic blood pressure 112 mm[Hg] Dana Mcdowell PA-C Work Phone: [facility] 03-16-2025 09:38-0400 Body mass index (BMI) [Ratio] 25.86 kg/m2 Dana Mcdowell PA-C Work Phone: [facility] 03-16-2025 09:38-0400 Body temperature 97.59 [degF] Dana Mcdowell PA-C Work Phone: [facility] 03-16-2025 09:38-0400 Body weight 66.22 kg Dana Mcdowell PA-C Work Phone: [facility] 03-16-2025 09:38-0400 Diastolic blood pressure 76 mm[Hg] Dana Mcdowell PA-C Work Phone: [facility] 03-16-2025 09:38-0400 Heart rate 64 /min Dana Mcdowell PA-C Work Phone: [facility] 03-16-2025 09:38-0400 Respiratory rate 16 /min Dana Mcdowell PA-C Work Phone: [facility] 03-16-2025 09:38-0400 SaO2% (BldA) [Mass fraction] 98 % Dana Mcdowell PA-C Work Phone: [facility] 03-16-2025 09:38-0400 Systolic blood pressure 110 mm[Hg] Dana Mcdowell PA-C Work Phone: [facility] 01-01-2025 11:37-0400 Body mass index (BMI) [Ratio] 25.76 kg/m2 Angie Blackwell MD Work Phone: [facility] 01-01-2025 11:37-0400 Body weight 65.95 kg Angie Blackwell MD Work Phone: [facility] 01-01-2025 11:37-0400 Diastolic blood pressure 60 mm[Hg] Angie Blackwell MD Work Phone: [facility] 01-01-2025 11:37-0400 Systolic blood pressure 98 mm[Hg] Angie Blackwell MD Work Phone: [facility] 08-27-2024 16:27-0500 Diastolic blood pressure 74 mm[Hg] Vita Haury PALLIATIVE SENIOR NP.MINISTER ASSISTANT Work Phone: [facility] 08-27-2024 16:27-0500 Systolic blood pressure 130 mm[Hg] Vita Haury PALLIATIVE SENIOR NP.MINISTER ASSISTANT Work Phone: [facility] 08-27-2024 16:04-0500 Body mass index (BMI) [Ratio] 25.61 kg/m2 Vita Haury PALLIATIVE SENIOR NP.MINISTER ASSISTANT Work Phone: [facility] 08-27-2024 16:04-0500 Body weight 65.59 kg Vita Haury PALLIATIVE SENIOR NP.MINISTER ASSISTANT Work Phone: [facility] 07-31-2024 14:26-0500 Body mass index (BMI) [Ratio] 25.33 kg/m2 Vita Haury PALLIATIVE SENIOR NP.MINISTER ASSISTANT Work Phone: [facility] 07-31-2024 14:26-0500 Body weight 64.86 kg Vita Haury PALLIATIVE SENIOR NP.MINISTER ASSISTANT Work Phone: [facility] 07-31-2024 14:26-0500 Diastolic blood pressure 70 mm[Hg] Vita Haury PALLIATIVE SENIOR NP.MINISTER ASSISTANT Work Phone: [facility] 07-31-2024 14:26-0500 Systolic blood pressure 110 mm[Hg] Vita Wahl POLA.MINISTER ASSISTANT Work Phone: [facility] 02-07-2024 15:10-0400 Body mass index (BMI) [Ratio] 24.92 kg/m2 Stephane Blaskewicz DO Work Phone: [facility] 02-07-2024 15:10-0400 Body weight 63.8 kg Stephane Blaskewicz DO Work Phone: [facility] 02-07-2024 15:10-0400 Diastolic blood pressure 66 mm[Hg] Stephane Blaskewicz DO Work Phone: [facility] 02-07-2024 15:10-0400 Heart rate 61 /min Stephane Blaskewicz DO Work Phone: [facility] 02-07-2024 15:10-0400 Systolic blood pressure 121 mm[Hg] Stephane Blaskewicz DO Work Phone: [facility] 11-29-2023 08:32-0400 Body height 160 cm Dayton Bhatia MD Work Phone: [facility] 11-29-2023 08:32-0400 Body weight 61.69 kg Dayton Bhatia MD Work Phone: [facility] 11-29-2023 08:32-0400 Diastolic blood pressure 70 mm[Hg] Dayton Bhatia MD Work Phone: [facility] 11-29-2023 08:32-0400 Heart rate 60 /min Dayton Bhatia MD Work Phone: [facility] 11-29-2023 08:32-0400 SaO2% (BldA) [Mass fraction] 98 % Dayton Bhatia MD Work Phone: [facility] 11-29-2023 08:32-0400 Systolic blood pressure 104 mm[Hg] Dayton Bhatia MD Work Phone: [facility] 06-02-2023 15:37-0400 Body temperature 98.49 [degF] Lisa Bermudez APRN.MINISTER ASSISTANT Work Phone: [facility] 06-02-2023 15:37-0400 Body weight 63.5 kg Lisa Bermudez APRN.MINISTER ASSISTANT Work Phone: [facility] 06-02-2023 15:37-0400 Diastolic blood pressure 83 mm[Hg] Lisa Bermudez APRN.MINISTER ASSISTANT Work Phone: [facility] 06-02-2023 15:37-0400 Heart rate 72 /min Lisa Bermudez PALLIATIVE SENIOR NP.MINISTER ASSISTANT Work Phone: [facility] 06-02-2023 15:37-0400 Respiratory rate 20 /min Lisa Bermudez PALLIATIVE SENIOR NP.MINISTER ASSISTANT Work Phone: [facility] 06-02-2023 15:37-0400 SaO2% (BldA) [Mass fraction] 98 % Lisa Bermudez APRN.MINISTER ASSISTANT Work Phone: [facility] 06-02-2023 15:37-0400 Systolic blood pressure 114 mm[Hg] Lisa Bermudez APRN.MINISTER ASSISTANT Work Phone: [facility] 02-09-2023 15:57-0400 Body height 160 cm Angie Blackwell MD Work Phone: [facility] 02-09-2023 15:57-0400 Body weight 63.5 kg Angie Blackwell MD Work Phone: [facility] 02-09-2023 15:57-0400 Diastolic blood pressure 60 mm[Hg] Angie Blackwell MD Work Phone: [facility] 02-09-2023 15:57-0400 Systolic blood pressure 100 mm[Hg] Angie Blackwell MD Work Phone: [facility] 02-04-2023 10:52-0400 Body height 157.48 cm [facility] 02-04-2023 10:52-0400 Body mass index (BMI) [Ratio] 24.7 kg/m2 [facility] 02-04-2023 10:52-0400 Body temperature 97.4 [degF] [facility] 02-04-2023 10:52-0400 Body weight 61.23 kg [facility] 02-04-2023 10:52-0400 Diastolic blood pressure 82 mm[Hg] [facility] 02-04-2023 10:52-0400 Heart rate 73 /min [facility] 02-04-2023 10:52-0400 Respiratory rate 16 /min [facility] 02-04-2023 10:52-0400 SaO2% (BldA) [Mass fraction] 98 % [facility] 02-04-2023 10:52-0400 Systolic blood pressure 138 mm[Hg] [facility] 11-28-2021 15:41-0400 Body weight 58.06 kg Angie Blackwell MD Work Phone: [facility] 11-28-2021 15:41-0400 Diastolic blood pressure 64 mm[Hg] Angie Blackwell MD Work Phone: [facility] 11-28-2021 15:41-0400 Systolic blood pressure 100 mm[Hg] Angie Blackwell MD Work Phone: [facility] Encounters Encounter Date Encounter Type Care Provider Facility Start: 03-30-2025 ambulatory DANA Frederick ty:[facility] Start: 03-30-2025 End: 03-30-2025 Office outpatient visit 25 minutes Dana Mcdowell PA-C Work Phone: [facility] [place] Comment on above: Preop examination (P rimary Dx); Fibroids, submucosal; Abnormal vaginal bleeding; Latent tuberculosis infection; Local reaction to insect sting, accidental or unintentional, initial encounter Start: 03-30-2025 End: 03-30-2025 Preprocedural examination done Dana Mcdowell PA-C Work Phone: [facility] Start: 03-28-2025 Encounter for other preprocedural examination Angie Blackwell [facility] Start: 03-28-2025 End: 03-28-2025 Patient encounter procedure [facility]ia [facility] Work Phone: Start: 03-28-2025 End: 03-28-[address] 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] Start: 03-16-2025 End: 03-16-2025 Office outpatient visit 25 minutes Dana Mcdowell PA-C Work Phone: [facility] [place] Comment on above: Preop examination (P rimary Dx); Fibroids, submucosal; Abnormal vaginal bleeding; Elevated glucose; Weight gain; TB lung, latent; Fatigue, unspecified type; Screening for diabetes mellitus; Encounter for lipid screening for cardiovascular disease; Encounter for screening examination for other mental health and behavioral disorders; Encounter for screening mammogram for breast cancer; Screening for depression Start: 03-16-2025 End: 03-16-2025 Preprocedural examination done Dana Mcdowell PA-C Work Phone: [facility] Start: 03-16-2025 End: 03-16-2025 ambulatory DANA MCDOWELL Facility:[facility] Start: 03-16-2025 Encounter for other preprocedural examination DANA MCDOWELL [facility] Start: 03-05-2025 End: 03-05-2025 Emergency department patient visit DAYTON BHATIA Facility:[id number] Start: 01-01-2025 End: 01-01-2025 ambulatory ANGIE BLACKWELL Facility:[facility] Start: 01-01-2025 End: 01-01-2025 Patient encounter procedure Angie Blackwell MD Work Phone: OB/Gynecology Comment on above: PMB (postmenopausal bleeding) (Primary Dx); Family history of ovarian cancer; Submucous leiomyoma of uterus; Hematuria, unspecified type Start: 09-03-2024 End: 09-29-2024 Telephone encounter Vita Wahl APRN.MINISTER ASSISTANT Work Phone: OB/Gynecology Comment on above: Patient Update Start: 08-27-2024 End: 08-27-2024 [facility] Facility:[facility] Start: 08-27-2024 End: 08-27-2024 Patient encounter procedure Vita Wahl APRN.MINISTER ASSISTANT Work Phone: OB/Gynecology Comment on above: Postmenopausal bleed ing (Primary Dx) Start: 08-18-2024 End: 08-18-2024 [facility] Facility:[facility] [facility] [place] Start: 08-18-2024 End: 08-18-2024 Nursing evaluation of patient and report Mi Nurse Work Phone: Family Medicine [place] Comment on above: Encounter for immuni zation (Primary Dx) Start: 08-08-2024 End: 08-08-2024 Telephone encounter Vita Wahl APRN.MINISTER ASSISTANT Work Phone: OB/Gynecology Comment on above: Results Start: 08-07-2024 End: 08-07-2024 ambulatory Product Ambassador [facility] [employer] Remote Work Phone: OB/Gynecology Start: 08-07-2024 End: 08-07-2024 Patient encounter procedure Us Tech 1 [facility] OB/Gynecology Start: 07-31-2024 End: 07-31-2024 [facility] [place] Start: 07-31-2024 End: 07-31-2024 Patient encounter procedure Vita Wahl APRN.MINISTER ASSISTANT Work Phone: OB/Gynecology Comment on above: Postmenopausal bleed ing (Primary Dx); Screening for HPV (human papillomavirus); Screening for cervical cancer; Vulvar cyst Start: 07-15-2024 End: 07-24-2024 Telephone encounter Dayton Bhatia MD Work Phone: [facility] [place] Comment on above: Immunizations (Hepat itis B Vaccines) Start: 05-30-2024 End: 05-30-2024 ambulatory Immunization Clinic Nurse [place] Work Phone: [facility] Markus Veliz Start: 05-30-2024 End: 05-30-2024 Patient encounter procedure Immunization Clinic Nurse [place] Work Phone: Family Medicine [place] Start: 03-25-2024 Telephone encounter Joycelyn davalos APRN.CNP Work Phone: [facility] [place] Comment on above: Results Start: 03-24-2024 Documentation procedure Mammog mónica Coordinator [facility] Department Start: 03-24-2024 Letter encounter Mammography Coordinator 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] Start: 02-07-2024 End: 02-07-2024 Patient encounter procedure Stephane Sandoval DO Work Phone: Infectious Disease Comment on above: TB lung, latent (Breann orion Dx) Start: 01-16-2024 ambulatory Dayton triana MD Work Phone: Internal Medicine [facility] [place] Start: 01-02-2024 Telephone encounter Stephane romero DO Work Phone: Infectious Disease Comment on above: Appointment Start: 12-07-2023 Telephone encounter Sharmaine Felix MA [facility] [place] Comment on above: Patient Question Start: 12-03-2023 ambulatory Stephane garza DO Work Phone: Infectious Disease Comment on above: TB labs Start: 12-03-2023 E-mail encounter fro m caregiver Stephane Sandoval DO Work Phone: [facility] Start: 11-30-2023 Telephone encounter Dayton Bhatia MD Work Phone: [facility] [place] Comment on above: Results Start: 11-29-2023 End: 11-29-2023 Patient encounter procedure Dayton Bhatia MD Work Phone: [facility] [place] Comment on above: Weight gain (Primary Dx); Encounter for screening for diabetes mellitus; Encounter for lipid screening for cardiovascular disease; TB lung, latent; Need for vaccination Start: 08-02-2023 End: 08-02-2023 Nursing evaluation of patient and report Mi Nurse Work Phone: [facility] [place] Comment on above: Need for vaccination (Primary Dx) Start: 07-28-2023 Telephone encounter Angie nicholson MD Work Phone: OB/Gynecology Comment on above: Results Start: 07-24-2023 Telephone encounter Stephane romero DO Work Phone: Infectious Disease Start: 07-23-2023 Telephone encounter Stephane romero DO Work Phone: Infectious Disease Comment on above: Letter Start: 07-02-2023 Telephone encounter Juana villeda PALLIATIVE SENIOR NP.MINISTER ASSISTANT Work Phone: [facility] [place] Start: 06-26-2023 Telephone encounter Dayton Bhatia MD Work Phone: [facility] [facility] Start: 06-14-2023 End: 06-14-2023 Nursing evaluation of patient and report Mi Nurse Work Phone: [facility] [place] Comment on above: Need for vaccination (Primary Dx); Need for influenza vaccination Start: 06-06-2023 Telephone encounter Dayton Bhatia MD Work Phone: [facility] [place] Comment on above: Orders Start: 06-05-2023 Telephone encounter Dayton Bhatia MD Work Phone: [facility] [place] Comment on above: Patient Question Start: 06-02-2023 End: 06-02-2023 ambulatory LISA BERMUDEZ Facility:[id number] Start: 06-02-2023 End: 06-02-2023 Patient encounter procedure Lisa Bermudez PALLIATIVE SENIOR NP.MINISTER ASSISTANT Work Phone: [facility] Comment on above: Positive TB test (Pr imary Dx) Start: 05-31-2023 End: 05-31-2023 ambulatory DAYTON BHATIA Facility:[id number] Start: 05-31-2023 Encounter for genera l adult medical examination without abnormal findings [facility] Start: 05-31-2023 End: 05-31-2023 Patient encounter procedure Jonah Oneal PALLIATIVE SENIOR NP.MINISTER ASSISTANT Work Phone: [facility] Comment on above: Routine adult health maintenance (Primary Dx) Start: 05-31-2023 End: 05-31-2023 Patient encounter status Jonah Oneal PALLIATIVE SENIOR NP.MINISTER ASSISTANT Work Phone: [facility] Start: 03-08-2023 Telephone encounter Angie nicholson MD Work Phone: OB/Gynecology Comment on above: Results Start: 02-21-2023 Telephone encounter Angie nicholson MD Work Phone: OB/Gynecology Comment on above: Appointment Start: 02-12-2023 Telephone encounter Angie nicholson MD Work Phone: OB/Gynecology Comment on above: Orders Start: 02-09-2023 End: 02-09-2023 Patient encounter procedure Angie Blackwell MD Work Phone: OB/Gynecology Comment on above: Encounter for gyneco logical examination (general) (routine) without abnormal findings (Primary Dx); Encounter for screening mammogram for breast cancer; Unintended weight gain; Secondary amenorrhea; BV (bacterial vaginosis); Microscopic hematuria; Family history of ovarian cancer; Pelvic pain in female; Malaise and fatigue Start: 02-09-2023 End: 02-09-2023 Patient encounter status Angie Blackwell MD Work Phone: OB/Gynecology Start: 02-05-2023 Chart abstracting Dayton hedrick MD Work Phone: [facility] [place] Start: 02-04-2023 End: 02-04-2023 Emergency department patient visit [facility] Start: 11-10-2022 Documentation procedure Mammog mónica Coordinator [facility] Start: 11-10-2022 Letter encounter Mammography Coordinator [facility] Department Start: 07-26-2022 Telephone encounter Chon Muñoz Work Phone: Podiatry Comment on above: images Start: 07-24-2022 End: 07-24-2022 Patient encounter procedure Chon Tenorio Work Phone: Podiatry Comment on above: Ankle instability, r ight (Primary Dx); Sprain of anterior talofibular ligament of right ankle, initial encounter Start: 07-17-2022 End: 07-17-2022 ambulatory Jeremias Brody PT [facility] Comment on above: Ankle instability, r ight (Primary Dx); Sprain of anterior talofibular ligament of right ankle, initial encounter Start: 04-26-2022 End: 04-26-2022 ambulatory Jeremias Brody PT [facility] Physical Therapy Comment on above: Ankle instability, r ight; Sprain of anterior talofibular ligament of right ankle, initial encounter Start: 04-10-2022 End: 04-10-2022 Subsequent hospital visit by physician [facility] [place] Mob Work Phone: Radiology Comment on above: Ankle instability, r ight [M25.371] Start: 04-10-2022 End: 04-10-2022 Patient encounter procedure Chon Tenorio Work Phone: Podiatry Comment on above: Ankle instability, r ight (Primary Dx); Sprain of anterior talofibular ligament of right ankle, initial encounter Start: 01-19-2022 End: 01-19-2022 Patient encounter procedure Tirso Bonilla MD Work Phone: [facility] [place] Comment on above: APPOINTMENT CANCELLE D (Primary Dx) Start: 01-19-2022 End: 01-19-2022 Telemedicine consultation with patient Tirso Bonilla MD Work Phone: [place] [id number] Start: 12-15-2021 End: 12-15-2021 Subsequent hospital visit by physician Dayton Bhatia MD Work Phone: [facility] [place] [facility] Comment on above: ALLERGIC REACTION/TR IAGE Start: 12-07-2021 End: 12-07-2021 Subsequent hospital visit by physician [facility] 1 Work Phone: Radiology Comment on above: Abnormal mammogram [ R92.8] Start: 12-07-2021 Telephone encounter Dayton Bhatia MD Work Phone: [facility] [place] Comment on above: Opened In Error Start: 12-06-2021 Documentation procedure Mammog mónica Coordinator [facility] Start: 12-06-2021 Letter encounter Mammography Coordinator [facility] Department Start: 11-28-2021 End: 11-28-2021 Patient encounter procedure Angie Blackwell MD Work Phone: OB/Gynecology Comment on above: Pelvic pain in femal e (Primary Dx) Start: 11-28-2021 End: 11-28-2021 Patient encounter procedure Angie Blackwell MD Work Phone: OB/Gynecology Comment on above: Pelvic pain in femal e (Primary Dx); Deep dyspareunia; Adenomyosis; Uterine leiomyoma, unspecified location; DUB (dysfunctional uterine bleeding) Start: 11-17-2021 Telephone encounter Angie nicholson MD Work Phone: OB/Gynecology Comment on above: Orders Results Start: 11-08-2021 Telephone encounter Mary Ann lord PALLIATIVE SENIOR NP.MINISTER ASSISTANT Work Phone: OB/Gynecology Comment on above: Results Start: 05-18-2021 End: 05-18-2021 Subsequent hospital visit by physician Marya [facility] [place] Work Phone: Radiology Comment on above: Other constipation [ K59.09] Procedures Date Procedure Procedure Detail Performing Clinician Start: 03-16-2025 Radiologic exam ches t 2 views Dana Mcdowell PA-C Work Phone: Start: 03-16-2025 Adult depression scr eening assessment Dana Mcdowell PA-C Work Phone: Start: 03-16-2025 Lipid 1996 panel - S rene or Plasma Dana Mcdowell PA-C Work Phone: Start: 08-27-2024 UA DIP,URINE HCG (POC) Vita Wahl APRN.MINISTER ASSISTANT Work Phone: Start: 08-07-2024 Us pelvic nonobstetr ic real-time image complete Vita Wahl PALLIATIVE SENIOR NP.MINISTER ASSISTANT Work Phone: Start: 03-24-2024 Screening digital br east tomosynthesis bi Bulk Order Provider Start: 02-07-2024 Radiologic exam ches t 2 views Stephane Sandoval DO Work Phone: Start: 11-29-2023 Lipid 1996 panel - S rene or Plasma Stephane Sandoval DO Work Phone: Start: 06-14-2023 INFLUENZA VACCINE, A GE 6 MO - 64 YR, QUADRIVALENT (AFLURIA, FLULAVAL, FLUZONE) Dayton Bhatia MD Work Phone: Start: 05-31-2023 Hepatitis b surf ant ibody hbsab Jonah Oneal PALLIATIVE SENIOR NP.MINISTER ASSISTANT Work Phone: Start: 02-04-2023 Plain X-ray of shoulder Start: 11-09-2022 Mammography Mammograph y Coordinator Start: 04-10-2022 Radex ankle complete minimum 3 views Chon Coby Work Phone: Start: 12-15-2021 Ecg routine ecg w/le ast 12 lds i&r only Start: 12-07-2021 Us breast uni real t philomena with image limited Angie Blackwell MD Work Phone: Start: 12-07-2021 Mammography Dayton hedrick MD Work Phone: Start: 11-01-2021 Mammography Angie nicholson MD Work Phone: Start: 07-01-2021 Colonoscopy Stephane romero DO Work Phone: Start: 05-18-2021 Radiologic exam abdo men 1 view Dana Mcdowell PA-C Work Phone: Start: 05-18-2021 Adult depression scr eening assessment Angie Blackwell MD Work Phone: Plan of Treatment Date Care Activity Detail Author Start: 06-14-2033 Urine microalbumin profile DTaP,Tdap,Td Vaccine (2 - Td or Tdap) [facility] Start: 03-16-2030 Lipid panel Lipid Screening [facility] Start: 07-31-2029 Screening for malign ant neoplasm of cervix Cervical Cancer Screening [facility] Start: 11-28-2028 Lipid panel Lipid Screening [facility] Start: 03-16-2028 Diabetes Screening Diabetes Screenin g [facility] Start: 11-28-2026 Diabetes Screening Diabetes Screenin g [facility] Start: 03-16-2026 Anxiety Screening Anxiety Screening [facility] Start: 03-16-2026 Depression Screening Depression Scre ening [facility] Start: 08-31-2025 End: 08-31-2025 Patient encounter procedure 08/31/2025 1:40 PM EST Office Visit OB/Gynecology [address] [place] [address] Angie Blackwell MD [address] [place] [address] annual exam OB/Gynecology Comment on above: annual exam Start: 08-03-2025 End: 08-03-2025 Patient encounter procedure 08/03/2025 1:40 PM EST Office Visit OB/Gynecology [address] [place] [address] Angie Blackwell MD [address] [place] [address] annual exam OB/Gynecology Comment on above: annual exam Start: 04-20-2025 Influenza vaccination Influenza Vacc ine (#1) [facility] Start: 04-09-2025 End: 04-09-2025 Patient encounter procedure 04/09/2025 10:10 AM EDT Office Visit OB/Gynecology [address] [place] [address] Angie Blackwell MD [address] [place] [address] 1 week post-op OB/Gynecology Comment on above: 1 week post-op Start: 04-02-2025 ambulatory Ambulatory Facility:[facility] Start: 03-25-2025 End: 03-25-2025 Patient encounter procedure 03/25/2025 2:40 PM EDT Appointment Mammogram [address] [place] [address] Dx: Encounter for screening mammogram for breast cancer [Z12.31] Mammogram Comment on above: Dx: Encounter for sc reening mammogram for breast cancer [Z12.31] Start: 03-24-2025 Screening for malign ant neoplasm of breast Mammogram Screening [facility] Start: 03-22-2025 HPV TESTING HPV TESTING [facility] Start: 03-22-2025 PAP TESTING PAP TESTING [facility] Start: 03-22-2025 Screening for malign ant neoplasm of cervix [facility] Start: 03-16-2025 End: 06-15-[address]25 [address] in Blood [facility] Comment on above: Expected: 03/16/2025 , Expires: 06/15/2025 Start: 03-16-2025 End: 06-15-[address] [facility] Comment on above: Expected: 03/16/2025 , Expires: 06/15/2025 Start: 08-07-2024 End: 08-07-2024 ambulatory 08/07/2024 1:30 PM EST Procedure OB/Gynecology [address] [place] [address] Remote, Product Ambassador [employer] [address] [place] [address] Postmenopausal bleeding [N95.0] OB/Gynecology Comment on above: Postmenopausal bleed ing [N95.0] Start: 07-31-2024 End: 07-31-2024 Patient encounter procedure 07/31/2024 2:45 PM EST Office Visit OB/Gynecology [address] [place] [address] Vita Wahl APRN.MINISTER ASSISTANT [address] [place] [address] Annual + Irregular Menses OB/Gynecology Comment on above: Annual + Irregular M enses Start: 07-31-2024 End: 07-31-2025 US Pelvis PELVIC US [facility] Anc Imaging Routine Postmenopausal bleeding Expected: 07/31/2024, Expires: 07/31/2025 [facility] Work Phone: Comment on above: Expected: 07/31/2024 , Expires: 07/31/2025 Start: 05-30-2024 End: 05-30-2024 Patient encounter procedure 05/30/2024 8:20 AM EDT Office Visit [facility] [place] [address] [place], [place] [id number] Dana Mcdowell PA-C [address] [place] [address] Physical [facility] [place] Comment on above: Physical Start: 04-20-2024 Covid-19 Vaccine () Covid-19 Vaccine () [facility] Start: 04-20-2024 Influenza vaccination Influenza Vacc ine (#1) [facility] Start: 02-07-2024 End: 02-07-2024 Patient encounter procedure 02/07/2024 3:30 PM EDT Office Visit Infectious Disease [facility] [address] [place] [address] Stephane Sandoval DO [address] [place] [address] TB follow up Infectious Disease Comment on above: TB follow up Start: 02-07-2024 End: 05-08-2024 HIV 1+2 Ab [Presence] in Serum or Plasma by Immunoassay [facility] Work Phone: Comment on above: Expected: 02/07/2024 , Expires: 05/08/2024 Start: 01-22-2024 Screening for malign ant neoplasm of colon [facility] Start: 12-14-2023 Hepatitis B Vaccine (3 of 3 - 19+ 3-dose series) Hepatitis B Vaccine (3 of 3 - 19+ 3-dose series) [facility] Start: 12-03-2023 Hepb vaccine adult 3 dose schedule for im use HEP B VACCINE, 3-DOSE, AGE 20+ YR (ENGERIX-B, RECOMBIVAX HB) Immunization/Injection Routine Need for vaccination Expected: 12/03/2023 (Approximate) [facility] Work Phone: Comment on above: Expected: 12/03/2023 (Approximate) Start: 11-29-2023 End: 02-28-2024 Comprehensive metabolic 2000 panel - Serum or Plasma [facility] Work Phone: Comment on above: Expected: 11/29/2023 , Expires: 02/28/2024 Start: 11-29-2023 End: 02-28-2024 LIPID PANEL, NONFASTING [facility] Work Phone: Comment on above: Expected: 11/29/2023 , Expires: 02/28/2024 Start: 11-29-2023 End: 02-28-2024 Thyrotropin [Units/volume] in Serum or Plasma [facility] Work Phone: Comment on above: Expected: 11/29/2023 , Expires: 02/28/2024 Start: 11-29-2023 End: 02-28-2024 Thyroxine (T4) free [Mass/volume] in Serum or Plasma [facility] Work Phone: Comment on above: Expected: 11/29/2023 , Expires: 02/28/2024 Start: 11-10-[address] [facility] Start: 11-10-2023 Screening for malign ant neoplasm of breast Mammogram Screening [facility] Start: 08-20-2023 Behavioral Health Screening Behavioral Health Screening [facility] Start: 07-12-2023 Hepatitis B Vaccine (2 of 3 - 19+ 3-dose series) Hepatitis B Vaccine (2 of 3 - 19+ 3-dose series) [facility] Start: 07-07-2023 Hepb vaccine adult 3 dose schedule for im use HEP B VACCINE, 3-DOSE, AGE 20+ YR (ENGERIX-B, RECOMBIVAX HB) Immunization/Injection Routine Need for vaccination Expected: 07/07/2023 (Approximate) [facility] Work Phone: Comment on above: Expected: 07/07/2023 (Approximate) Start: 06-02-2023 End: 08-02-2023 BLOOD TB SCREEN BLOOD TB SCREEN Lab Routine Positive TB test Expected: 06/02/2023, Expires: 08/02/2023 [facility] Work Phone: Comment on above: Expected: 06/02/2023 , Expires: 08/02/2023 Start: 04-20-2023 Covid-19 Vaccine () Covid-[address] Vacc[address] () [facility] Start: 04-20-2023 Influenza vaccination [facility] Start: 02-09-2023 End: 04-11-2023 Estradiol (E2) [Mass/volume] in Serum or Plasma [facility] Work Phone: Comment on above: Expected: 02/09/2023 , Expires: 04/11/2023 Start: 02-09-2023 End: 04-11-2023 Follitropin [Units/volume] in Serum or Plasma [facility] Work Phone: Comment on above: Expected: 02/09/2023 , Expires: 04/11/2023 Start: 02-09-2023 End: 02-10-2024 PELVIC US I PELVIC US I Anc Imaging Routine Pelvic pain in female Expected: 02/09/2023, Expires: 02/10/2024 [facility] Work Phone: Comment on above: Expected: 02/09/2023 , Expires: 02/10/2024 Start: 02-09-2023 End: 04-11-2023 Prolactin [Mass/volume] in Serum or Plasma [facility] Work Phone: Comment on above: Expected: 02/09/2023 , Expires: 04/11/2023 Start: 02-09-2023 End: 04-11-2023 Thyrotropin [Units/volume] in Serum or Plasma [facility] Work Phone: Comment on above: Expected: 02/09/2023 , Expires: 04/11/2023 Start: 02-09-2023 End: 04-11-2023 Thyroxine (T4) free [Mass/volume] in Serum or Plasma [facility] Work Phone: Comment on above: Expected: 02/09/2023 , Expires: 04/11/2023 Start: 12-07-[address] [facility] Start: 11-01-[address] [facility] Start: 08-20-2022 DEPRESSION ASSESSMENT DEPRESSION ASS ESSMENT [facility] Start: 05-18-2022 Adult depression screening assessment DEPRESSION SCREENING [facility] Start: 04-20-2022 Influenza vaccination [facility] Start: 11-17-2021 End: 01-17-2022 Prolactin [Mass/volume] in Serum or Plasma PROLACTIN BLD Lab Routine Elevated prolactin level DUB (dysfunctional uterine bleeding) Expected: 11/17/2021, Expires: 01/17/2022 [facility] Work Phone: Comment on above: Expected: 11/17/2021 , Expires: 01/17/2022 Start: 08-20-2021 DEPRESSION ASSESSMENT DEPRESSION ASS [facility] Start: 04-20-2021 Influenza vaccination INFLUENZA (#1) [facility] Start: [address] [facility] Start: 1997 Anxiety Screening Anxiety Screening [facility] Start: 1997 Depression Screening Depression Scre ening [facility] Start: 1997 HEPATITIS C SCREENING HEPATITIS C [facility] Start: 1997 Hepatitis C screening Hepatitis C [facility] Start: 1997 HIV SCREENING HIV SCREENING [facility] Start: 1997 HIV screening HIV Screening [facility] Start: 01-22-1984 COVID-19 VACCINE (1) COVID-19 VACCIN E (1) [facility] Start: 1979 COVID-19 VACCINE (#1) COVID-19 VACCI NE (#1) [facility] Start: 1979 HEPATITIS B (1 of 3 - 3-dose series) HEPATITIS B (1 of 3 - 3-dose series) [facility] Start: 1979 Hepatitis B Vaccine (1 of 3 - 3-dose series) Hepatitis B Vaccine (1 of 3 - 3-dose series) [facility] Bacteria identified in Urine by Culture URINE CULTURE Microbiology Routine Microscopic hematuria 02/09/2023 4:37 PM EDT [facility] Work Phone: BACTERIAL VAGINOSIS NAAT BACTERI AL VAGINOSIS NAAT Lab Routine BV (bacterial vaginosis) Pelvic pain in female 02/09/2023 4:39 PM EDT [facility] Work Phone: VANESSA/TRICHOMONAS NAAT VANESSA /TRICHOMONAS NAAT Microbiology Routine BV (bacterial vaginosis) Pelvic pain in female 02/09/2023 4:39 PM EDT [facility] Work Phone: End: 02-14-2025 DBT Breast - bilateral screening [facility] Routine Encounter for screening mammogram for breast cancer 1 Occurrences starting 01/16/2024 until 02/14/2025 [facility] Work Phone: Comment on above: 1 Occurrences starti ng 01/16/2024 until 02/14/2025 End: 04-15-2026 DBT Breast - bilateral screening [facility] Radiology Routine Encounter for screening mammogram for breast cancer 1 Occurrences starting 03/16/2025 until 04/15/2026 [facility] Work Phone: Comment on above: 1 Occurrences starti ng 03/16/2025 until 04/15/2026 ECG COMPLETE ECG COMPLETE ECG Routine Preop examination Ordered: 03/30/2025 [facility] Work Phone: Comment on above: Ordered: 03/30/2025 Endometrial bx w/wo endocervix bx w/o dilat spx ENDOMETRIAL BIOPSY Procedures Routine DUB (dysfunctional uterine bleeding) 1 Occurrences starting 11/28/2021 [facility] Work Phone: Comment on above: 1 Occurrences starti ng 11/28/2021 Endometrial bx w/wo endocervix bx w/o dilat spx ENDOMETRIAL BIOPSY Procedures Routine Postmenopausal bleeding Ordered: 08/08/2024 [facility] Work Phone: Comment on above: Ordered: 08/08/2024 Hepb vaccine adult 3 dose schedule for im use HEP B VACCINE, 3-DOSE, AGE 20+ YR (ENGERIX-B, RECOMBIVAX HB) Immunization/Injection Routine Need for vaccination Ordered: 06/06/2023 [facility] Work Phone: Comment on above: Ordered: 06/06/2023 Insertion intrauteri ne device iud INSERT INTRAUTERINE DEVICE Procedures Routine Pelvic pain in female Adenomyosis Uterine leiomyoma, unspecified location DUB (dysfunctional uterine bleeding) 1 Occurrences starting 11/28/2021 [facility] Work Phone: Comment on above: 1 Occurrences starti ng 11/28/2021 End: 03-10-2024 GENEVA SCREENING GENEVA SCREENING Radiology Routine Encounter for screening mammogram for breast cancer 1 Occurrences starting 02/09/2023 until 03/10/2024 [facility] Work Phone: Comment on above: 1 Occurrences starti ng 02/09/2023 until 03/10/2024 PAP TEST PAP TEST Lab Rou amanda Postmenopausal bleeding Screening for HPV (human papillomavirus) Screening for cervical cancer 07/31/2024 3:[address] [facility] Patient Education ED Bursitis ED Shoulder Impingement Syndrome [facility] Work Phone: Patient referral [facility] Work Phone: PT PLAN OF CARE CERTIFICATION PT PLAN OF CARE CERTIFICATION Procedures Routine Ankle instability, right Sprain of anterior talofibular ligament of right ankle, initial encounter Ordered: 04/26/2022 [facility] Work Phone: Comment on above: Ordered: 04/26/2022 PT PLAN OF CARE CERTIFICATION PT PLAN OF CARE CERTIFICATION Procedures Routine Ankle instability, right Sprain of anterior talofibular ligament of right ankle, initial encounter Ordered: 07/17/2022 [facility] Work Phone: Comment on above: Ordered: 07/17/2022 End: 07-01-2024 Radiologic exam chest 2 views XR CHEST 2V FRONTAL/LAT Radiology STAT Positive TB test 1 Occurrences starting 06/02/2023 until 07/01/2024 [facility] Work Phone: Comment on above: 1 Occurrences starti ng 06/02/2023 until 07/01/2024 Tdap vaccine 7 yrs/> im TDAP VAC CINE, AGE 7+ YR (ADACEL, BOOSTRIX) Immunization/Injection Routine Need for vaccination Ordered: 06/06/2023 [facility] Work Phone: Comment on above: Ordered: 06/06/2023 Urinalysis complete panel - Urine URINALYSIS, WITH MICROSCOPIC Lab Routine Microscopic hematuria 02/09/2023 4:37 PM EDT [facility] Work Phone: Urine test visual color cmprsn meths HCG QUAL UR B/O Lab Routine Unintended weight gain Secondary amenorrhea Ordered: 02/09/2023 [facility] Work Phone: Comment on above: Ordered: 02/09/2023 End: 03-10-2024 Us transvaginal US FEMALE PELVIS TRANSVAG Radiology Routine Pelvic pain in female 1 Occurrences starting 02/09/2023 until 03/10/2024 [facility] Work Phone: Comment on above: 1 Occurrences starti ng 02/09/2023 until 03/10/2024 [facility] Immunizations Immunization Date Immunization Notes Care Provider Daniele barksdale 08-18-2024 hepatitis B vaccine, adult dosage Nh Nurse Work Phone: [facility] 05-30-2024 influenza, seasonal, injectable Immunization [place] Work Phone: [facility] 05-30-2024 influenza virus vaccine, unspecified formulation Dana Mcdowell PA-C Work Phone: [facility] 08-02-2023 hepatitis B vaccine, adult dosage Mi Nurse Work Phone: [facility] Work Phone: 06-14-2023 hepatitis B vaccine, adult dosage Nh Nurse Work Phone: [facility] Work Phone: 06-14-2023 influenza, injectabl e, quadrivalent, contains preservative Mi Nurse Work Phone: [facility] Work Phone: 06-14-2023 tetanus toxoid, reduced diphtheria toxoid, and acellular pertussis vaccine, adsorbed Mi Nurse Work Phone: [facility] Work Phone: 06-14-2023 influenza virus vaccine, unspecified formulation Screen [facility] Payers Date Payer Category Payer Self-pay [id number] 2022 Unknown [id number] 2015 Medicaid [place] [id number] 2015-Present [phone] [place] [id number] Medicaid [id number] 2015 Medicaid [id number] Unknown [id number] Unknown [id number] Social History Date Type Detail Facility Start: 05-18-2021 End: 02-09-2023 Tobacco smoking status NHIS Never smoked tobacco [facility] Start: 05-18-2021 End: 02-09-2023 Tobacco use and exposure Smokeless tobacco non-user [facility] Start: 11-04-2021 End: 03-30-2025 Alcohol intake Ex-drinker (finding) [facility] Start: 09-29-2021 History SDOH Alcohol Frequency 2 [facility] Start: 05-18-2021 History SDOH Alcohol Std Drinks 1 [facility] Start: 11-04-2021 History SDOH Alcohol Comment rare [facility] Start: 05-18-2021 End: 07-06-2021 History SDOH Social Connections Phone 3 [facility] Start: 05-18-2021 History SDOH Social Connections Get Together 98 [facility] Start: 05-18-2021 History SDOH Social Connections Living 8 [facility] Start: 05-18-2021 History SDOH Financial 4 [facility] Start: 05-18-[address] [facility] Start: 1980 Sex Assigned At Not on file C [facility] Start: 04-18-2021 End: 07-24-2022 Exposure to SARS-CoV-2 (event) Not sure [facility] Start: 02-04-2023 Tobacco smoking stat us [facility] Unknown if ever smoked [facility] Start: 1980 Sex Assigned At Female W [facility] Start: 07-26-2020 End: 05-18-2021 History of [address] function [facility] Start: 07-26-2020 End: 05-18-2021 Social connection and isolation panel [facility] Start: 07-21-2012 How often do you get together with friends or relatives? Patient refused [facility] Do you belong to any clubs or organizations such as alevism groups, unions, fraternal or athletic groups, or school groups? No [facility] Are you now , , , , never or living with a partner? Living with partner [facility] How often to you hav e a drink containing alcohol? Monthly or less [facility] How many standard dr inks containing alcohol do you have on a typical day? [address] [facility] How often do you hav e 6 or more drinks on 1 occasion? Never [facility] How hard is it for y ou to pay for the very basics like food, housing, medical care, and heating Not very hard [facility] Do you feel stress - tense, restless, nervous, or anxious, or unable to sleep at night because your mind is troubled all the time - these days [OSQ] Not at all [facility] (I/We) worried wheth er (my/our) food would run out before (I/we) got money to buy more. Sometimes true [facility] The food that (I/we) bought just didn't last, and (I/we) didn't have money to get more. Never true [facility] Start: 05-18-2021 Alcoholic beverage intake Current drinker of alcohol (finding) [facility] Start: 02-24-2008 Alcohol Comment not often [facility] NEGATED: Highlighted row [facility] Clinical Notes 05-18-2021 to 03-30-2025 Dana Mcdowell PA-C - 03/30/2025 10:26 AM Luli Alvarado RT(Diana) - 03/16/2025 10:50 AM Dana Barboza PA-C - 03/16/2025 9:54 AM Angie Serrano MD - 01/01/2025 11:34 AM EDT Note Date & Type Note Facility 03-30-2025 Note HNO ID: [id number] Author: DANA MCDOWELL PA-C Service: ? Author Type: Physician [employer]ocket [employer] Fire Worker Type: Progress Notes Filed: 03/30/2025 10:47 Note Text: Chief Complaint Patient presents with: Established Patient HPI Franny Zacarias is a 45 year old female who presents here today for ECG for preop. Patient was recently seen by myself for preop visit. During that exam, patient forgot to mention an episode of Dyspnea while walking her dog. She told nurse on phone call and I asked for patient to return so we can discuss. Patient reports that the episode occurred on the same day that she had donated blood earlier in the day. She has not had any recurrance since then. Denies CP or near syncopal episodes. TB Skin Test Reaction: - Diagnosed with latent TB a year ago; recent chest X-ray was normal. 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 - Developed severe itching immediately after the test, which worsened after a bee sting yesterday. The bee sting is is same area as the TB skin test - Denies taking Benadryl due to drowsiness side effects. - Describes the test site as really painful and tender to touch. - Denies cough or dyspnea. Anemia: - Recent hemoglobin levels noted to be low. - Experienced tingling in fingers after blood donation, leading to an ER visit. - No further episodes of dyspnea reported after the initial incident post-blood donation. Past medical history, appointments, medications, allergies reviewed. Previous Medical History PAST MEDICAL HISTORY[1] Previous Surgical History PAST SURGICAL HISTORY Procedure Laterality Date COLONOSCOPY SCREENING 08/2021 Family History FAMILY HISTORY[2] Patient Allergies ALLERGIES[3] Current Medications Meds Previous to this Encounter[4] Social History SOCIAL HISTORY[5] Review of Symptoms REVIEW OF SYSTEMS SEE HPI EXAM: BP 112/76 (BP Site: Right Arm, BP Position: Sitting, BP Cuff Size: Regular Adult) Pulse 63 Temp 37.2 ?C (98.9 ?F) (Left Tympanic) Resp 16 LMP 05/08/2022 SpO2 97% General Appearance: Well appearing, alert, in no acute distress, well-hydrated, well nourished.. Skin: +TB skin test reaction with surrounding swelling noted. Patient notes tenderness near site of the TB reaction.. Lungs: Lungs clear to auscultation. No wheezing, rhonchi, rales.. Heart: RRR without murmur, gallop, or rubs. No ectopy. Health Maintenance List Hepatitis C Screening Never done Colorectal Cancer Screening due on 01/22/2024 Mammogram Screening due on 03/24/2025 Influenza Vaccine(1) due on 04/20/2025 Depression Screening due on 03/16/2026 Anxiety Screening due on 03/16/2026 Diabetes Screening due on 03/16/2028 Cervical Cancer Screening due on 07/31/2029 Lipid Screening due on 03/16/2030 DTaP,Tdap,Td Vaccine(2 - Td or Tdap) due on 06/14/2033 Hepatitis B Vaccine Completed HIV Screening Completed Data reviewed ECG: NSR Assessment and Plan 1. Preop examination (Z01.818) 2. Fibroids, submucosal (D25.0) 3. Abnormal vaginal bleeding (N93.9) - EKG reviewed and found to be normal. - Mild anemia noted, but not significant enough to delay surgery. - Recent fatigue and dyspnea on exertion likely related to recent blood donation and baseline anemia. - Proceed with surgery as planned on the . 4. 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 - Recent PPD test performed for nursing school requirements; educated patient that PPD will always be positive due to known latent TB. - Advised patient to avoid future PPD tests and rely on chest X-ray for active TB screening. - Recommended follow-up with infectious disease specialist for annual check-in. 5. Local reaction to insect sting, accidental or unintentional, initial encounter (T63.481A) - Localized swelling and tenderness at the site of the PPD test, likely exacerbated by recent bee sting. - Start prednisone; advised to take Benadryl at home and monitor for improvement. - Advised to go to the ER if symptoms worsen or do not improve within 4-8 hours. - DDx includes abscess/cellulitis, but given history, suspect immune reaction. Dana Mcdowell PA-C Recording using Retrieve software for draft documentation of the visit was discussed with the patient/authorized factory representative; all questions welcomed and answered. Patient/authorized factory representative agreed to proceed [1] Past Medical History: No date: Other constipation 08/20/2001: Solitary cyst of breast Comment: right breast No date: TB lung, latent 05/18/2021: Urethral diverticulum Comment: Seeing uro 05/18/2021: Urinary urgency [2] Review of patient's family history indicates: Problem: Cancer Relation: Mother Age of Onset: (Not Specified) Comment: ovarian cancer w/ mets; Problem: Cervical Cancer Relation: Mother Age of Onset: (Not Specified (more content not included)... [facility] 03-30-2025 History of Presen t illness Narrative Chief Complaint Patient presents with: Established Patient HPI Franny Zacarias is a 45 year old female who presents here today for ECG for preop. Patient was recently seen by myself for preop visit. During that exam, patient forgot to mention an episode of Dyspnea while walking her dog. She told nurse on phone call and I asked for patient to return so we can discuss. Patient reports that the episode occurred on the same day that she had donated blood earlier in the day. She has not had any recurrance since then. Denies CP or near syncopal episodes. TB Skin Test Reaction: - Diagnosed with latent TB a year ago; recent chest X-ray was normal. 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 - Developed severe itching immediately after the test, which worsened after a bee sting yesterday. The bee sting is is same area as the TB skin test - Denies taking Benadryl due to drowsiness side effects. - Describes the test site as really painful and tender to touch. - Denies cough or dyspnea. Anemia: - Recent hemoglobin levels noted to be low. - Experienced tingling in fingers after blood donation, leading to an ER visit. - No further episodes of dyspnea reported after the initial incident post-blood donation. Past medical history, appointments, medications, allergies reviewed. Previous Medical History PAST MEDICAL HISTORY[1] Previous Surgical History PAST SURGICAL HISTORY Procedure Laterality Date COLONOSCOPY SCREENING 08/2021 Family History FAMILY HISTORY[2] Patient Allergies ALLERGIES[3] Current Medications Meds Previous to this Encounter[4] Social History SOCIAL HISTORY[5] Review of Symptoms REVIEW OF SYSTEMS SEE HPI EXAM: BP 112/76 (BP Site: Right Arm, BP Position: Sitting, BP Cuff Size: Regular Adult) Pulse 63 Temp 37.2 C (98.9 F) (Left Tympanic) Resp 16 LMP 05/08/2022 SpO2 97% General Appearance: Well appearing, alert, in no acute distress, well-hydrated, well nourished.. Skin: +TB skin test reaction with surrounding swelling noted. Patient notes tenderness near site of the TB reaction.. Lungs: Lungs clear to auscultation. No wheezing, rhonchi, rales.. Heart: RRR without murmur, gallop, or rubs. No ectopy. Health Maintenance List Hepatitis C Screening Never done Colorectal Cancer Screening due on 01/22/2024 Mammogram Screening due on 03/24/2025 Influenza Vaccine(1) due on 04/20/2025 Depression Screening due on 03/16/2026 Anxiety Screening due on 03/16/2026 Diabetes Screening due on 03/16/2028 Cervical Cancer Screening due on 07/31/2029 Lipid Screening due on 03/16/2030 DTaP,Tdap,Td Vaccine(2 - Td or Tdap) due on 06/14/2033 Hepatitis B Vaccine Completed HIV Screening Completed Data reviewed ECG: NSR Assessment and Plan 1. Preop examination (Z01.818) 2. Fibroids, submucosal (D25.0) 3. Abnormal vaginal bleeding (N93.9) - EKG reviewed and found to be normal. - Mild anemia noted, but not significant enough to delay surgery. - Recent fatigue and dyspnea on exertion likely related to recent blood donation and baseline anemia. - Proceed with surgery as planned on the . 4. 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 - Recent PPD test performed for nursing school requirements; educated patient that PPD will always be positive due to known latent TB. - Advised patient to avoid future PPD tests and rely on chest X-ray for active TB screening. - Recommended follow-up with infectious disease specialist for annual check-in. 5. Local reaction to insect sting, accidental or unintentional, initial encounter (T63.481A) - Localized swelling and tenderness at the site of the PPD test, likely exacerbated by recent bee sting. - Start prednisone; advised to take Benadryl at home and monitor for improvement. - Advised to go to the ER if symptoms worsen or do not improve within 4-8 hours. - DDx includes abscess/cellulitis, but given history, suspect immune reaction. Dana Mcdowell PA-C Recording using Retrieve software for draft documentation of the visit was discussed with the patient/authorized factory representative; all questions welcomed and answered. Patient/authorized factory representative agreed to proceed [1] Past Medical History: No date: Other constipation 08/20/2001: Solitary cyst of breast Comment: right breast No date: TB lung, latent 05/18/2021: Urethral diverticulum Comment: Seeing uro 05/18/2021: Urinary urgency [2] Review of patient's family history indicates: Problem: Cancer Relation: Mother Age of Onset: (Not Specified) Comment: ovarian cancer w/ mets; Problem: Cervical Cancer Relation: Mother Age of Onset: (Not Specified) Problem: Hypertension Relation: Paternal Grandmother Age of Onset: (Not Specified) Problem: Hyperlipidemia Relation: Paternal Grandmother Age of Onset: (Not Specified) Problem: other (other) Relation: Paternal Grandmother Age of Onset: (Not Specified) Comment: pre-diabetes [3] Allergies Allergen Reactions Naproxen Hives, Swelling, Shortness of Breath Mobic [Meloxicam] Swelling, Itching [4] No current outpatient medications on file prior to visit. No current facility-administered medications on file prior to visit. [5] Social History Tobacco Use Smoking status: Never Smokeless tobacco: Never Vaping Use Vaping status: Never Used Substance Use Topics Alcohol use: Not Currently Comment: rare Drug use: Never documented in this encounter [facility] 03-17-2025 Note HNO ID: [id number] Author: DANA MCDOWELL PA-C Service: ? Author Type: Physician Rocket Test Fire Worker Type: Progress Notes Filed: 03/17/2025 09:36 Note Text: CXR and Labs reviewed Patient is cleared for surgery. Dana Mcdowell PA-C Data Reviewed CXR 03/16/2025 IMPRESSION: No acute radiographic abnormality. Latest Ref Rng 03/16/2025 WBC 3.70 - 11.00 k/uL 4.46 RBC 3.90 - 5.20 m/uL 3.74 (L) Hemoglobin 11.5 - 15.5 g/dL 11.2 (L) Hematocrit 36.0 - 46.0 % 34.3 (L) MCV 80.0 - 100.0 fL 91.7 MCH 26.0 - 34.0 pg 29.9 MCHC 30.5 - 36.0 g/dL 32.7 RDW-CV 11.5 - 15.0 % 12.5 Platelet Count 150 - 400 k/uL 320 MPV 9.0 - 12.7 fL 10.8 Neut% % 56.1 Abs Neut (ANC) 1.45 - 7.50 k/uL 2.50 Lymph% % 32.7 Abs Lymph 1.00 - 4.00 k/uL 1.46 Newport% % 6.5 Abs [place] <0.87 k/uL 0.29 Eosin% % 4.0 Abs Eosin <0.46 k/uL 0.18 Baso% % 0.7 Abs Baso <0.11 k/uL 0.03 Immature Gran % % 0.0 IMMATURE GRANS (ABS) <0.10 k/uL <0.03 NRBC /100 WBC 0.0 Absolute nRBC <0.01 k/uL <0.01 DTYPE Auto Color Yellow Yellow Clarity Clear Clear Glucose, Urine Negative Negative Bilirubin, Urine Negative Negative Ketones, Urine Negative Negative Specific [place], Ur 1.005 - 1.030 1.007 Hemoglobin/Blood,Ur Negative Trace ! pH, Urine 5.0 - 8.0 6.5 Protein, Urine Negative Negative Urobilinogen 0.2-1.0 EU/dL 0.2 EU/dL Nitrites Negative Negative Leukest Negative Negative WBC, Urine 0-5 /HPF 0-5 /HPF RBC, Urine 0-2 /HPF 0-2 /HPF Bacteria Negative /HPF Negative Epithelial Cells /HPF None Seen Hyaline Cast 0 /LPF 0 /LPF Protein, Total 6.3 - 8.0 g/dL 7.6 Albumin 3.9 - 4.9 g/dL 4.4 Calcium 8.5 - 10.2 mg/dL 9.8 Bilirubin, Total 0.2 - 1.3 mg/dL 0.3 Alkaline Phosphatase 34 - 123 U/L 90 AST 13 - 35 U/L 22 ALT 7 - 38 U/L 16 Glucose 74 - 99 mg/dL 93 BUN 7 - 21 mg/dL 10 Creatinine 0.58 - 0.96 mg/dL 0.57 (L) Sodium 136 - 144 mmol/L 137 Potassium 3.7 - 5.1 mmol/L 4.3 Chloride 98 - 107 mmol/L 103 CO2 22 - 30 mmol/L 22 Anion Gap 8 - 15 mmol/L 12 eGFR >=60 mL/min/1.73m? 114 Total Cholesterol, Nonfasting <200 mg/dL 188 Triglycerides, Nonfasting <150 mg/dL 128 HDL Cholesterol, Nonfasting >39 mg/dL 58 LDL Cholesterol Calculated, Nonfasting <100 mg/dL 107 (H) Non HDL Cholesterol, Nonfasting <130 mg/dL 130 (H) VLDL Cholesterol, Nonfasting <30 mg/dL 21 Total Chol/HDL Ratio, Nonfasting <5.10 mg/dL 3.24 LDL/HDL Ratio, Nonfasting <2.54 mg/dL 1.84 TSH 0.270 - 4.200 mIU/L 2.080 Free T4 0.9 - 1.7 ng/dL 1.5 Legend: (L) Low ! Abnormal (H) High [facility] 03-16-2025 History of Presen t illness Narrative Radiology Service Progress Note PATIENT NAME: Franny Zacarias DATE OF SERVICE: March 16, 2025 TIME: 10:36 AM PATIENT IDENTITY VERIFICATION COMPLETED USING TWO (2) IDENTIFIERS: Name and Date of confirmed by patient verbally. FALL SCREENING: Has the patient had 2 falls in the last year or 1 fall with injury or currently using an Ambulatory Assistive Device (Walker, Cane, Wheelchair, Crutches, etc.)? No PATIENT GENDER DATA: Assigned female at . status: : No status: NO. PATIENT RELEVANT IMPLANT DATA REVIEWED: Yes PATIENT PRESENTS WITH AN IMPLANTABLE OR ATTACHED ORCHARDIST: No RADIOLOGY DEPARTMENT: General X-ray: Exam(s) Completed: Chest X-Ray PERIPHERAL IV DATA: Not applicable SIGNED BY: RT Radha(R) March 16, 2025 10:36 AM documented in this encounter [facility] 03-16-2025 Note HNO ID: [id number] Author: LULI PIKE RT(R) Service: ? Author Type: Clinical Program Director Type: Progress Notes Filed: 03/16/2025 10:43 Note Text: Radiology Service Progress Note PATIENT NAME: Franny Zacarias DATE OF SERVICE: March 16, 2025 TIME: 10:36 AM PATIENT IDENTITY VERIFICATION COMPLETED USING TWO (2) IDENTIFIERS: Name and Date of confirmed by patient verbally. FALL SCREENING: Has the patient had 2 falls in the last year or 1 fall with injury or currently using an Ambulatory Assistive Device (Walker, Cane, Wheelchair, Crutches, etc.)? No PATIENT GENDER DATA: Assigned female at . status: : No status: NO. PATIENT RELEVANT IMPLANT DATA REVIEWED: Yes PATIENT PRESENTS WITH AN IMPLANTABLE OR ATTACHED ORCHARDIST: No RADIOLOGY DEPARTMENT: General X-ray: Exam(s) Completed: Chest X-Ray PERIPHERAL IV DATA: Not applicable SIGNED BY: RT Radha(Diana) March 16, 2025 10:36 AM [facility] 03-16-2025 Note HNO ID: [id number] Author: DANA MCDOWELL PA-C Service: ? Author Type: Physician Rocket Test Fire Worker Type: Progress Notes Filed: 03/17/2025 13:22 Note Text: Chief Complaint Patient presents with: Pre-Op Exam HPI Franny Zacarias is a 45 year old female who presents here today for preop exam. Pre-Operative Exam: - Will be scheduled for hysteroscopy, DANDC, and fibroid resection with Dr. Blackwell. - History of abnormal vaginal bleeding x2 episodes, prompting evaluation by Dr. Blackwell. - Denies cardiac history, chest pain, or palpitations. - Denies significant pulmonary history, dyspnea, cough, or abnormal sputum production. - Denies nausea, emesis, or urinary concerns. - Reports frequent heartburn, attributed to high coffee consumption. - Reports weight gain despite a healthy diet; requests thyroid function testing. - Reports fatigue, particularly around 1400, and hair loss. - Denies fever. - Reports worsening vision. - Denies hearing or sinus issues. 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 - No recent chest X-ray. Last 10 Encounter Wt Readings: Date: Wt: 03/16/2025 66.2 kg (146 lb) 03/05/2025 61.2 kg (135 lb) 01/01/2025 66 kg (145 lb 6.4 oz) 08/27/2024 65.6 kg (144 lb 9.6 oz) 07/31/2024 64.9 kg (143 lb) 02/07/2024 63.8 kg (140 lb 10.5 oz) 11/29/2023 61.7 kg (136 lb) 11/07/2023 61.2 kg (135 lb) 07/27/2023 63.5 kg (140 lb) 07/05/2023 62.6 kg (138 lb) Past medical history, appointments, medications, allergies reviewed. Previous Medical History PAST MEDICAL HISTORY Diagnosis Date Other constipation Solitary cyst of breast 08/20/2001 right breast Urethral diverticulum 05/18/2021 Seeing uro Urinary urgency 05/18/2021 Previous Surgical History PAST SURGICAL HISTORY Procedure Laterality Date COLONOSCOPY SCREENING 08/2021 Family History FAMILY HISTORY Problem Relation Age of Onset Cancer Mother ovarian cancer w/ mets; Cervical Cancer Mother Hypertension Paternal Grandmother Hyperlipidemia Paternal Grandmother other (other) Paternal Grandmother pre-diabetes Patient Allergies ALLERGIES Allergen Reactions Naproxen Hives, Swelling, Shortness of Breath Mobic [Meloxicam] Swelling, Itching Current Medications Current Outpatient Medications on File Prior to Visit Medication Sig Cholecalciferol, Vitamin D3, 50 mcg (2,000 unit) cap Take 1 capsule by mouth once daily. (Patient not taking: Reported on 07/31/2024) No current facility-administered medications on file prior to visit. Social History Social History Tobacco Use Smoking status: Never Smokeless tobacco: Never Vaping Use Vaping status: Never Used Substance Use Topics Alcohol use: Not Currently Comment: rare Drug use: Never Review of Symptoms REVIEW OF SYSTEMS GENERAL: No weight loss, malaise or fevers HEENT: Negative for frequent or significant headaches, No changes in hearing or vision, no nose bleeds or other nasal problems NECK: Negative for lumps, goiter, pain and significant neck swelling RESPIRATORY: Negative for cough, hemoptysis, wheezing, COPD, dyspnea or shortness of breath CARDIOVASCULAR: Negative for chest pain, leg swelling, hypertension, CHF or palpitations GI: No nausea, vomiting, or diarrhea : No history of dysuria, frequency or incontinence SEE HPI EXAM: BP 110/76 (BP Site: Left Arm, BP Position: Sitting, BP Cuff Size: Regular Adult) Pulse 64 Temp 36.4 ?C (97.6 ?F) Resp 16 Wt 66.2 kg (146 lb) LMP 05/08/2022 SpO2 98% BMI 25.86 kg/m? General Appearance: Well appearing, alert, in no acute distress, well-hydrated, well nourished.. Head: Normocephalic, no masses, lesions, tenderness or abnormalities. Eyes: Anicteric sclera. Pupils are equally round and reactive to light. Extraocular movements are intact. . Ears: External ears normal, canals clear. Nose/Sinuses: Nares normal, septum midline, mucosa normal, no drainage or sinus tenderness. Oropharynx: Lips, mucosa, and tongue normal, teeth and gums normal, oropharynx normal. Neck: Supple, no adenopathy; thyroid symmetric, normal size, no bruits. Lungs: Lungs clear to auscultation. No wheezing, rhonchi, rales.. Heart: RRR without murmur, gallop, or rubs. No ectopy. Abdomen: Normal abdominal exam, Abdomen soft, non-tender. Bowel sounds normal. No masses, organomegaly. Extremities: No deformities, edema, skin discoloration, clubbing or cyanosis. Good capillary refill. . Peripheral Pulses: Normal. Neurologic: Gait normal. Reflexes normal and symmetric. Sensation grossly intact.. Health Maintenance List Hepatitis C Screening Never done Colorectal Cancer Screening due on 01/22/2024 Mammogram Screening due on 03/24/2025 Influenza Vaccine(1) due on 04/20/2025 Depression Screening due on 03/16/2026 Anxiety Screening due on 03/16/2026 Diabetes Screening due on 02/17 (more content not included)... [facility] 03-16-2025 History of Presen t illness Narrative Chief Complaint Patient presents with: Pre-Op Exam HPI Franny Zacarias is a 45 year old female who presents here today for preop exam. Pre-Operative Exam: - Will be scheduled for hysteroscopy, D&C, and fibroid resection with Dr. Blackwell. - History of abnormal vaginal bleeding x2 episodes, prompting evaluation by Dr. Blackwell. - Denies cardiac history, chest pain, or palpitations. - Denies significant pulmonary history, dyspnea, cough, or abnormal sputum production. - Denies nausea, emesis, or urinary concerns. - Reports frequent heartburn, attributed to high coffee consumption. - Reports weight gain despite a healthy diet; requests thyroid function testing. - Reports fatigue, particularly around 1400, and hair loss. - Denies fever. - Reports worsening vision. - Denies hearing or sinus issues. 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 - No recent chest X-ray. Last 10 Encounter Wt Readings: Date: Wt: 03/16/2025 66.2 kg (146 lb) 03/05/2025 61.2 kg (135 lb) 01/01/2025 66 kg (145 lb 6.4 oz) 08/27/2024 65.6 kg (144 lb 9.6 oz) 07/31/2024 64.9 kg (143 lb) 02/07/2024 63.8 kg (140 lb 10.5 oz) 11/29/2023 61.7 kg (136 lb) 11/07/2023 61.2 kg (135 lb) 07/27/2023 63.5 kg (140 lb) 07/05/2023 62.6 kg (138 lb) Past medical history, appointments, medications, allergies reviewed. Previous Medical History PAST MEDICAL HISTORY Diagnosis Date Other constipation Solitary cyst of breast 08/20/2001 right breast Urethral diverticulum 05/18/2021 Seeing uro Urinary urgency 05/18/2021 Previous Surgical History PAST SURGICAL HISTORY Procedure Laterality Date COLONOSCOPY SCREENING 08/2021 Family History FAMILY HISTORY Problem Relation Age of Onset Cancer Mother ovarian cancer w/ mets; Cervical Cancer Mother Hypertension Paternal Grandmother Hyperlipidemia Paternal Grandmother other (other) Paternal Grandmother pre-diabetes Patient Allergies ALLERGIES Allergen Reactions Naproxen Hives, Swelling, Shortness of Breath Mobic [Meloxicam] Swelling, Itching Current Medications Current Outpatient Medications on File Prior to Visit Medication Sig Cholecalciferol, Vitamin D3, 50 mcg (2,000 unit) cap Take 1 capsule by mouth once daily. (Patient not taking: Reported on 07/31/2024) No current facility-administered medications on file prior to visit. Social History Social History Tobacco Use Smoking status: Never Smokeless tobacco: Never Vaping Use Vaping status: Never Used Substance Use Topics Alcohol use: Not Currently Comment: rare Drug use: Never Review of Symptoms REVIEW OF SYSTEMS GENERAL: No weight loss, malaise or fevers HEENT: Negative for frequent or significant headaches, No changes in hearing or vision, no nose bleeds or other nasal problems NECK: Negative for lumps, goiter, pain and significant neck swelling RESPIRATORY: Negative for cough, hemoptysis, wheezing, COPD, dyspnea or shortness of breath CARDIOVASCULAR: Negative for chest pain, leg swelling, hypertension, CHF or palpitations GI: No nausea, vomiting, or diarrhea : No history of dysuria, frequency or incontinence SEE HPI EXAM: BP 110/76 (BP Site: Left Arm, BP Position: Sitting, BP Cuff Size: Regular Adult) Pulse 64 Temp 36.4 C (97.6 F) Resp 16 Wt 66.2 kg (146 lb) LMP 05/08/2022 SpO2 98% BMI 25.86 kg/m General Appearance: Well appearing, alert, in no acute distress, well-hydrated, well nourished.. Head: Normocephalic, no masses, lesions, tenderness or abnormalities. Eyes: Anicteric sclera. Pupils are equally round and reactive to light. Extraocular movements are intact. . Ears: External ears normal, canals clear. Nose/Sinuses: Nares normal, septum midline, mucosa normal, no drainage or sinus tenderness. Oropharynx: Lips, mucosa, and tongue normal, teeth and gums normal, oropharynx normal. Neck: Supple, no adenopathy; thyroid symmetric, normal size, no bruits. Lungs: Lungs clear to auscultation. No wheezing, rhonchi, rales.. Heart: RRR without murmur, gallop, or rubs. No ectopy. Abdomen: Normal abdominal exam, Abdomen soft, non-tender. Bowel sounds normal. No masses, organomegaly. Extremities: No deformities, edema, skin discoloration, clubbing or cyanosis. Good capillary refill. . Peripheral Pulses: Normal. Neurologic: Gait normal. Reflexes normal and symmetric. Sensation grossly intact.. Health Maintenance List Hepatitis C Screening Never done Colorectal Cancer Screening due on 01/22/2024 Mammogram Screening due on 03/24/2025 Influenza Vaccine(1) due on 04/20/2025 Depression Screening due on 03/16/2026 Anxiety Screening due on 03/16/2026 Diabetes Screening due on 03/05/2028 Lipid Screening due on 11/28/2028 Cervical Cancer Screening due on 07/31/2029 DTaP,Tdap,Td Vaccine(2 - Td or Tdap) due on 06/14/2033 Hepatitis B Vaccine Completed HIV Screening Completed Data reviewed N/a Assessment and Plan 1. Preop examination (Z01.818) - Preoperative risk assessment for upcoming hysteroscopy, D&C, and fibroid resection. - Order preoperative labs, including CBC, glucose, HbA1c, TSH, free T4, thyroid antibodies, and lipid panel. - Order chest X-ray prior to surgery due to untreated latent TB. - Will notify Dr. Blackwell's office once preoperative risk assessment is complete and no concerns are identified. 2. Fibroids, submucosal (D25.0) 3. Abnormal vaginal bleeding (N93.9) - Postmenopausal abnormal vaginal bleeding with submucosal fibroid identified on exam. - Plan for hysteroscopy, D&C, and fibroid resection by Dr. Blackwell. 4. Elevated glucose (R73.09) 5. Screening for diabetes mellitus (Z13.1) - Glucose 110 mg/dL on recent ER visit. - Order HbA1c as part of preoperative labs. 6. Weight gain (R63.5) 7. Fatigue, unspecified type (R53.83) - Unexplained weight gain and fatigue; patient reports healthy diet and hair loss. - Order TSH, free T4, and thyroid antibodies to evaluate for thyroid dysfunction. - Discussed possibility of further evaluation (e.g., sleep study) after surgery if labs are normal. - Advised follow-up after surgery for more detailed discussion if labs are normal. 8. TB lung, latent (Z22.7) - Untreated latent TB; patient declined treatment due to concerns about antibiotic side effects. - Order chest X-ray prior to surgery. - Advised patient to schedule follow-up with infectious disease provider to discuss initiating treatment. 9. Encounter for lipid screening for cardiovascular disease (Z13.220) - Order lipid panel as part of preoperative labs. 10. Encounter for screening examination for other mental health and behavioral disorders (Z13.39) 11. Screening for depression (Z13.31) 12. Encounter for screening mammogram for breast cancer (Z12.31) Dana Mcdowell PA-C Recording using Retrieve software for draft documentation of the visit was discussed with the patient/authorized factory representative; all questions welcomed and answered. Patient/authorized factory representative agreed to proceed documented in this encounter [facility] 01-01-2025 Note HNO ID: [id number] Author: ANGIE BLACKWELL MD Service: ? Author Type: Physician Type: Progress Notes Filed: 01/01/2025 12:16 Note Text: Franny Zacarias is a 44 year old female who presents to discuss a DANDC. HPI: LMP 2021 with two episodes of post menopausal bleeding. Pelvic US with 4 cm submucosal fibroid. Attempted EMB with stenotic cervix. Patient desires DANDC as attempted EMB as very painful for her. OB History Gravida0 Para0 Term0 Preterm0 AB0 Living0 SAB0 IAB0 Ectopic0 Multiple0 Live Births0 Comment: menarche age 16 or 17 Drugless Doctor History LMP: 05/08/2022, Postmenopausal Age at Menarche: Age at First : Age at Menopause: Drugless Doctor History Comments: Sexual Activity: Yes; Male Contraception: No contraception data on record PAST MEDICAL HISTORY Diagnosis Date Other constipation Solitary cyst of breast 08/20/2001 right breast Urethral diverticulum 05/18/2021 Seeing uro Urinary urgency 05/18/2021 PAST SURGICAL HISTORY Procedure Laterality Date COLONOSCOPY SCREENING 08/2021 FAMILY HISTORY Problem Relation Age of Onset Cancer Mother ovarian cancer w/ mets; Cervical Cancer Mother Hypertension Paternal Grandmother Hyperlipidemia Paternal Grandmother other (other) Paternal Grandmother pre-diabetes Social History Tobacco Use Smoking status: Never Smokeless tobacco: Never Vaping Use Vaping status: Never Used Substance Use Topics Alcohol use: Not Currently Comment: rare Drug use: Never Current Outpatient Medications Medication Sig Cholecalciferol, Vitamin D3, 50 mcg (2,000 unit) cap Take 1 capsule by mouth once daily. (Patient not taking: Reported on 07/31/2024) No current facility-administered medications for this visit. Allergies As of Date: 01/01/2025 Allergen Noted Reaction NAPROXEN 04/10/2022 Hives, Swelling, and Shortness of Breath MOBIC [MELOXICAM] 04/10/2022 Swelling and Itching Fully Assessed 01/01/2025 REVIEW OF SYSTEMS Expanded ROS: N/A Allergies and current medication updated:Yes SENSITIVE EXAM: Sensitive exam not performed. EXAM: BP 98/60 Wt 145 lb 6.4 oz (66.0kg) LMP 05/08/2022 GENERAL: pleasant, female in no apparent distress HEENT: Normocephalic and atraumatic CHEST: Normal inspiratory effort NEURO: exam grossly non-focal EXTREMITIES: normal ASSESSMENT AND PLAN: Assessment AND Plan PMB (postmenopausal bleeding) Reviewed possible causes of PMB. Reviewed pelvic US results and questions answered. Discussed r/b/a hysteroscopy, DANDC, fibroid resection at [facility] and patient desires to proceed. Surgery sheet completed. Family history of ovarian cancer Orders: CONSULT TO MEDICAL GENETICS - CANCER; Future Discussed importance of genetics referral as mother never had testing for ovarian cancer. Submucous leiomyoma of uterus Hematuria, unspecified type Referred to urology. Patient will call to schedule. Angie Blackwell, DO I spent 20 minutes in the visit, with more than 50% of the total [id number] time of the visit in counseling / coordination of care. [facility] 01-01-2025 History of Presen t illness Narrative Franny Zacarias is a 44 year old female who presents to discuss a D&C. HPI: LMP 2021 with two episodes of post menopausal bleeding. Pelvic US with 4 cm submucosal fibroid. Attempted EMB with stenotic cervix. Patient desires D&C as attempted EMB as very painful for her. OB History Gravida0 Para0 Term0 Preterm0 AB0 Living0 SAB0 IAB0 Ectopic0 Multiple0 Live Births0 Comment: menarche age 16 or 17 Drugless Doctor History LMP: 05/08/2022, Postmenopausal Age at Menarche: Age at First : Age at Menopause: Drugless Doctor History Comments: Sexual Activity: Yes; Male Contraception: No contraception data on record PAST MEDICAL HISTORY Diagnosis Date Other constipation Solitary cyst of breast 08/20/2001 right breast Urethral diverticulum 05/18/2021 Seeing uro Urinary urgency 05/18/2021 PAST SURGICAL HISTORY Procedure Laterality Date COLONOSCOPY SCREENING 08/2021 FAMILY HISTORY Problem Relation Age of Onset Cancer Mother ovarian cancer w/ mets; Cervical Cancer Mother Hypertension Paternal Grandmother Hyperlipidemia Paternal Grandmother other (other) Paternal Grandmother pre-diabetes Social History Tobacco Use Smoking status: Never Smokeless tobacco: Never Vaping Use Vaping status: Never Used Substance Use Topics Alcohol use: Not Currently Comment: rare Drug use: Never Current Outpatient Medications Medication Sig Cholecalciferol, Vitamin D3, 50 mcg (2,000 unit) cap Take 1 capsule by mouth once daily. (Patient not taking: Reported on 07/31/2024) No current facility-administered medications for this visit. Allergies As of Date: 01/01/2025 Allergen Noted Reaction NAPROXEN 04/10/2022 Hives, Swelling, and Shortness of Breath MOBIC [MELOXICAM] 04/10/2022 Swelling and Itching Fully Assessed 01/01/2025 REVIEW OF SYSTEMS Expanded ROS: N/A Allergies and current medication updated:Yes SENSITIVE EXAM: Sensitive exam not performed. EXAM: BP 98/60 Wt 145 lb 6.4 oz (66.0kg) LMP 05/08/2022 GENERAL: pleasant, female in no apparent distress HEENT: Normocephalic and atraumatic CHEST: Normal inspiratory effort NEURO: exam grossly non-focal EXTREMITIES: normal ASSESSMENT AND PLAN: Assessment & Plan PMB (postmenopausal bleeding) Reviewed possible causes of PMB. Reviewed pelvic US results and questions answered. Discussed r/b/a hysteroscopy, D&C, fibroid resection at [facility] and patient desires to proceed. Surgery sheet completed. Family history of ovarian cancer Orders: CONSULT TO MEDICAL GENETICS - CANCER; Future Discussed importance of genetics referral as mother never had testing for ovarian cancer. Submucous leiomyoma of uterus Hematuria, unspecified type Referred to urology. Patient will call to schedule. Angie Blackwell DO I spent 20 minutes in the visit, with more than 50% of the total [id number] time of the visit in counseling / coordination of care. documented in this encounter [facility] 09-29-2024 Telephone encounter Note Ok to close. Please call patient once more and review risks of uterine hyperplasia and malignancy. Strongly recommend follow up for discussion of this. Vita Wahl APRN.CNP [facility] Work Phone: 09-29-2024 Miscellaneous Notes Ok to close. Please call patient once more and review risks of uterine hyperplasia and malignancy. Strongly recommend follow up for discussion of this. Vita Wahl APRN.MINISTER ASSISTANT Okay to close encounter as we have been unsuccessful in reaching patient and have mailed Pt letter? Mychart message read by patient.Please advise. Juanita Castro RN Unable to reach patient after several attempts. Letter mailed asking patient call the office. Elizabeth Calderón RN Left message for patient to call office. Juanita Castro RN Tried calling patient on number listed in chart; however, when calling it states We are sorry the number you have dialed has calling restrictions that have prevented the completion of your call. [facility] message sent to Pt. Juanita Castro RN Please call patient - EMB was attempted on 08/27 for PMB but unsuccessful due to stenotic cervix. I had recommended that she follow up for surgeon for possible hysteroscopy D+C but has not scheduled. Vita Wahl APRN.MINISTER ASSISTANT documented in this encounter [facility] 09-26-2024 Telephone encounter Note Okay to close encounter as we have been unsuccessful in reaching patient and have mailed Pt letter? Mychart message read by patient.Please advise. Juanita Castro RN [facility] 09-24-2024 Telephone encounter Note Unable to reach patient after several attempts. Letter mailed asking patient call the office. Elizabeth Calderón RN [facility] 09-16-2024 Telephone encounter Note Left message for patient to call office. Juanita Castro RN [facility] 09-03-2024 Telephone encounter Note Tried calling patient on number listed in chart; however, when calling it states We are sorry the number you have dialed has calling restrictions that have prevented the completion of your call. [employer] message sent to Pt. Juanita Castro RN [facility] 09-03-2024 Telephone encounter Note Please call patient - EMB was attempted on 08/27 for PMB but unsuccessful due to stenotic cervix. I had recommended that she follow up for surgeon for possible hysteroscopy D+C but has not scheduled. Vita Wahl APRN.MINISTER ASSISTANT [facility] 08-27-2024 Instructions Latanya Bergeron MA - 08/27/2024 3:56 PM EST YOUR RECOVERY After your biopsy you may have: Vaginal bleeding (less than a normal menstrual period) Mild cramping Do NOT put anything in the vagina for 1 week after your endometrial biopsy. This includes: tampons douches and refraining from having sexual intercourse If you have any discomfort, you may take an over the counter pain medication (motrin, advil, ibuprofen, tylenol, etc). If this does not relieve your discomfort, contact the office. It is okay to wear a sanitary pad until the discharge and spotting stops. RISKS Although problems seldom occur with endometrial biopsies, there can be some complications. You may feel faint during and shortly after the procedure as well as have some bleeding after the procedure. There is also a risk of infection after the procedure. These complications are rare and can be easily treated. You should contact you doctor is you have any of the following: Heavy bleeding (more than your normal period) Bleeding with clots Severe abdominal pain Fever (more than 100.4F) Foul smelling vaginal discharge RESULTS We will have the results of your biopsy in 1-2 weeks. If you do not hear the results of your biopsy after 2 weeks, please contact the office for the results. If you have any additional questions or concerns please do not hesitate to contact the office. documented in this encounter [facility] 08-27-2024 Note HNO ID: [id number] Author: VITA WAHL APRN.CNP Service: ? Author Type: Nurse Practitioner Type: Progress Notes Filed: 08/27/2024 16:56 Note Text: Digital Sales Director offered: Patient declines. Meléndez is a 44 year old who presents today for an endometrial biopsy for post menopausal bleeding. test: negative UNIVERSAL PROTOCOL / SAFETY CHECKLIST Procedure to be Performed: Endometrial Biopsy Sign In: A Moment of CARE was completed. Personnel directly involved with the procedure wore the appropriate PPE (Personal Protective Equipment). Patient/Surrogate Stated/Verified: PATIENT VERIFIED(optional for EMERGENT procedures): Patient name, Date of , Relevant allergies, and The intended procedure Time Out Communication: Intended patient and procedure match the source documents. Consent documented and matches the intended procedure. Sign Out: SIGN OUT (optional for EMERGENT procedures): No specimen collected. All instruments, equipment, possible retained foreign bodies accounted for. Post-procedure follow-up management communicated and Plan of Care Visit completed when applicable. Vita Wahl APRN.MINISTER ASSISTANT PROCEDURE: EXTERNAL GENITALIA: Normal in appearance + 1 cm cyst to left inferior perineum, no erythema VAGINA: Normal in appearance without lesions BIOPSY: Speculum placed into the vagina with excellent visualization of the cervix. Cervix cleaned with betadine. Anterior lip of cervix grasped with single toothed tenaculum. + brown flat irregular lesion noted to 1:00 position of cervix. Due to severe cervical stenosis, procedure was unable to be performed. Procedure Summary: Patient tolerated procedure well. ASSESSMENT: post menopausal bleeding PLAN: Recommend hysteroscopy D+C for further eval of PMB. Follow up on cervical lesion. Vita Wahl APRN.MINISTER ASSISTANT [facility] 08-27-2024 History of Presen t illness Narrative Digital Sales Director offered: Patient declinesConcetta Meléndez is a 44 year old who presents today for an endometrial biopsy for post menopausal bleeding. test: negative UNIVERSAL PROTOCOL / SAFETY CHECKLIST Procedure to be Performed: Endometrial Biopsy Sign In: A Moment of CARE was completed. Personnel directly involved with the procedure wore the appropriate PPE (Personal Protective Equipment). Patient/Surrogate Stated/Verified: PATIENT VERIFIED(optional for EMERGENT procedures): Patient name, Date of , Relevant allergies, and The intended procedure Time Out Communication: Intended patient and procedure match the source documents. Consent documented and matches the intended procedure. Sign Out: SIGN OUT (optional for EMERGENT procedures): No specimen collected. All instruments, equipment, possible retained foreign bodies accounted for. Post-procedure follow-up management communicated and Plan of Care Visit completed when applicable. Vita Wahl APRN.MINISTER ASSISTANT PROCEDURE: EXTERNAL GENITALIA: Normal in appearance + 1 cm cyst to left inferior perineum, no erythema VAGINA: Normal in appearance without lesions BIOPSY: Speculum placed into the vagina with excellent visualization of the cervix. Cervix cleaned with betadine. Anterior lip of cervix grasped with single toothed tenaculum. + brown flat irregular lesion noted to 1:00 position of cervix. Due to severe cervical stenosis, procedure was unable to be performed. Procedure Summary: Patient tolerated procedure well. ASSESSMENT: post menopausal bleeding PLAN: Recommend hysteroscopy D+C for further eval of PMB. Follow up on cervical lesion. Vita Wahl APRN.MINISTER ASSISTANT documented in this encounter [facility] 08-18-2024 Note HNO ID: [id number] Author: NILDA GARCIA LPN Service: ? Author Type: LICENSED NURSE Type: Progress Notes Filed: 08/18/2024 09:18 Note Text: Patient presents for Hepatitis B vaccine. Denies any problems at this time. Tolerated injection well. Nilda Garcia LPN [facility] 08-18-2024 History of Presen t illness Narrative Patient presents for Hepatitis B vaccine. Denies any problems at this time. Tolerated injection well. Nilda Garcia LPN documented in this encounter [facility] 08-07-2024 Note HNO ID: [id number] Author: LOUIS HOWARD MD Service: ? Author Type: Physician Type: Progress Notes Filed: 08/07/2024 23:35 Note Text: The patient presents for requested ultrasound. Full report available in the Imaging tab in [employer]. Louis Howard MD [facility] 08-07-2024 History of Presen t illness Narrative The patient presents for requested ultrasound. Full report available in the Imaging tab in [employer]. Louis Howard MD documented in this encounter [facility] 07-31-2024 Note Addended by: VITA WAHL on: 07/31/2024 03:34 PM Modules accepted: Orders [facility] 07-31-2024 Miscellaneous Notes Addended by: VITA WAHL on: 07/31/2024 03:34 PM Modules accepted: Orders documented in this encounter [facility] 07-31-2024 Instructions Vita Wahl APRN.CNP - 07/31/2024 2:56 PM EST Calcium and Vitamin D Supplementation (from the National Institutes of Health Office of Dietary Supplements 2011) Calcium is required by the body for blood vessel, muscle, hormone and nerve functioning. Most of the body's calcium is stored in the bones and teeth where it supports structure and function. Bone is continuously broken down and reformed. When bone breakdown exceeds formation, especially in postmenopausal women, bone loss can increase the risk of osteoporosis and fractures. In addition to low calcium intake, women who smoke, have a family history of osteoporosis, are thin, or , or who take certain medications such as cancer chemotherapy, seizure mediations and steroids are at increased risk of osteoporosis. The calcium requirements in women change with age. The National Institutes of Health (NIH) recommends: 1000mg elemental calcium for premenopausal women age 19-50 1200mg elemental calcium for postmenopausal women and all women over 50 Milk, yogurt, and cheese are rich natural sources of calcium and are the major food contributors in the [place]. For example, 8oz of milk (whole, lowfat or skim) contains about 300mg calcium, 8oz of yogurt contains 415mg. Nondairy sources include salmon and sardines and vegetables, such as Stateless cabbage, kale, and broccoli. Foods fortified with calcium include many fruit juices, tofu and cereals. For more food calcium content information, visit http://ods.od.nih.gov/factsheets /calcium. Calcium supplements come in several different forms. Remember that the recommendations are for millgrams (mg) of elemental calcium which may be less than the total weight of the supplement. The amount of elemental calcium is required to be printed on the label. Calcium carbonate is the least expensive form. It must be taken on a full stomach to be properly absorbed. Some patients may experience gas or constipation. Calcium phosphate and calcium citrate may be taken either with or without food and tend to have less side effects but are generally more expensive. Because of its ability to neutralize stomach acid, calcium carbonate is found in some isev-qlh-xxyadcq antacid products, such as Tums and Rolaids . Depending on its strength, each chewable pill or softchew provides 200 to 400 mg of elemental calcium. The percentage of calcium absorbed depends on the total amount of elemental calcium consumed at one time. Absorption is highest in doses <500mg. So a woman who takes 1,000mg/day of calcium from supplements should split the dose and take 500mg at two separate times during the day. Too much calcium can cause kidney stones, constipation, difficulty absorbing other nutrients and calcium buildup in blood vessels. Women under 50 should not exceed 2500mg/day (2000mg/day for women over 50) of calcium from food and supplements. Excessive alcohol and caffeine intake can inhibit absorption of calcium. Calcium can reduce the absorption of some medications if taken at the same time of day (bisphosphonates, thyroid medication, Phenytoin and other seizure medications, some antibiotics and iron supplements). Vitamin D promotes calcium absorption in the gut and maintains adequate blood levels of calcium and phosphate for normal bone growth and bone remodeling. Vitamin D also helps regulate cell growth as well as nerve, muscle and immune system function. Vitamin D is produced in the skin as a result of ultraviolet sunlight rays and must be altered in the liver and kidney to become its active form. Recommended intake according to the National Institutes of Health is 600 International Units (IU) for girls and women ages 1-70 and 800 IU for women over 70. Very few foods in nature contain vitamin D. The flesh of fatty fish (such as salmon, tuna, and mackerel) and fish liver oils are among the best sources. Small amounts of vitamin D are found in beef liver, cheese, mushrooms and egg yolks. Most people meet at least some of their vitamin D needs through exposure to sunlight. Season, time of day, length of day, cloud cover, smog, skin melanin content, and sunscreen are among the factors that affect UV radiation exposure and vitamin D synthesis. Despite the importance of the sun for vitamin D synthesis, it is prudent to limit exposure of skin to sunlight and avoid tanning beds. UV radiation is a carcinogen responsible for most of the estimated 1.5 million skin cancers that occur annually in the [place]. Lifetime cumulative UV damage to skin is also responsible for some age-associated dryness and other cosmetic changes. In supplements and fortified foods, vitamin D is available in two forms, D2 (ergocalciferol) and D3 (cholecalciferol). The two are equivalent at normal supplement doses. For women who require high supplement doses because of vitamin D deficiency, D3 may work better to raise blood levels. Some medications can prevent proper absorption of Vitamin D. These include laxatives, corticosteroids like prednisone, the seizure drugs phenobarbital and phenytoin, the weight-loss drug orlistat ( Xenical and AlliTM) and the cholesterol-lowering drug cholestyramine (Questran , LoCholest , and Prevalite ). Talk to your doctor about adjusting your recommended daily vitamin D dosage if you take these medications. You should not exceed 4000 mg of vitamin D supplementation daily unless specifically prescribed by your doctor. documented in this encounter [facility] 07-31-2024 Note HNO ID: [id number] Author: VITA WAHL APRN.MINISTER ASSISTANT Service: ? Author Type: Nurse Practitioner Type: Progress Notes Filed: 07/31/2024 15:34 Note Text: Farnny Zacarias is a 44 year old female who presents for problem visit for postmenopausal bleeding. HPI: Franny presents to discuss postmenopausal bleeding. LMP 2021. FSH 96.2, estradiol <24 on 02/09/23. She started having bleeding about 2 weeks ago that lasted 3 days. It was a light flow with some cramping. She does experience mild pelvic pain, that ranges from a 5-6. She reports no pain today. A1C, TSH normal 11/29/2023 OB History T0 L0 SAB0 IAB0 Ectopic0 Multiple0 Live Births0 Comment: menarche age 16 or 17 Drugless Doctor History LMP: 05/08/2022, Postmenopausal Age at Menarche: Age at First : Age at Menopause: Drugless Doctor History Comments: Sexual Activity: Yes; Male Contraception: No contraception data on record PAST MEDICAL HISTORY Diagnosis Date Other constipation Solitary cyst of breast 08/20/2001 right breast Urethral diverticulum 05/18/2021 Seeing uro Urinary urgency 05/18/2021 PAST SURGICAL HISTORY Procedure Laterality Date COLONOSCOPY SCREENING 08/2021 FAMILY HISTORY Problem Relation Age of Onset Cancer Mother ovarian cancer w/ mets; Cervical Cancer Mother Hypertension Paternal Grandmother Hyperlipidemia Paternal Grandmother other (other) Paternal Grandmother pre-diabetes Social History Tobacco Use Smoking status: Never Smokeless tobacco: Never Vaping Use Vaping status: Never Used Substance Use Topics Alcohol use: Not Currently Comment: rare Drug use: Never Current Outpatient Medications Medication Sig Cholecalciferol, Vitamin D3, 50 mcg (2,000 unit) cap Take 1 capsule by mouth once daily. (Patient not taking: Reported on 07/31/2024) No current facility-administered medications for this visit. 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 As applicable, any other physician, advance practice provider, medical student, or other health professional student that will be observing or involved in the sensitive examination for educational or training purposes was discussed with the Patient or Authorized Media Relations Coordinator. The Patient or Authorized Media Relations Coordinator has agreed to proceed with the sensitive examination. (Sensitive examination includes inspection and/or palpation of the breasts, pelvis, prostate and anorectal regions). EXAM: BP 110/70 Wt 143 lb (64.9kg) LMP 05/08/2022 GENERAL: pleasant, female in no apparent distress HEENT: Normocephalic, atraumatic, mucus membranes moist, and no lesions CHEST: Normal inspiratory effort PELVIC: external genitalia normal, normal Bartholin's glands, urethra, [place]'s glands, + brown flat irregular lesion to 1:00 position of cervix, + 1 cm vulvar cyst to inferior left perineum - tenderness with palpation, good vaginal support, physiologic discharge present, normal appearing perineal body and perianal region BIMANUAL: uterus normal size, shape and consistency, no adnexal masses, and non-tender NEURO: alert and oriented x3,exam grossly non-focal EXTREMITIES: normal ASSESSMENT AND PLAN: 1. Postmenopausal bleeding - ICD9: 627.1, ICD10: N95.0 (primary diagnosis) - Declines EMB today - reports she is concerned about pain and would prefer this to be done under sedation. Consider hysteroscopy D+C based on ultrasound results - PAP TEST - Cervical lesion noted. - Mother with ovarian cancer. 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 findings negative Vulvar cyst - ICD9: 624.8, ICD10: N90.7 - Keep area clean and dry - Apply warm compresses - Worsening infection signs reviewed - to notify if worsening - CEPHALEXIN 500 MG CAPSULE Vita Wahl APRN.CNP Medical Decision Making: Problems: Moderate: New problem with uncertain prognosis Data: Unique test result(s) reviewed: 3+ Unique test(s) ordered: 1 Risk: Low: Low risk from testing/treatment Moderate: Drug management Medical Decision Making Level: 4 - Moderate [facility] 07-31-2024 History of Presen t illness Narrative Franny Zacarias is a 44 year old female who presents for problem visit for postmenopausal bleeding. HPI: Franny presents to discuss postmenopausal bleeding. LMP 2021. FSH 96.2, estradiol <24 on 02/09/23. She started having bleeding about 2 weeks ago that lasted 3 days. It was a light flow with some cramping. She does experience mild pelvic pain, that ranges from a 5-6. She reports no pain today. A1C, TSH normal 11/29/2023 OB History T0 L0 SAB0 IAB0 Ectopic0 Multiple0 Live Births0 Comment: menarche age 16 or 17 Drugless Doctor History LMP: 05/08/2022, Postmenopausal Age at Menarche: Age at First : Age at Menopause: Drugless Doctor History Comments: Sexual Activity: Yes; Male Contraception: No contraception data on record PAST MEDICAL HISTORY Diagnosis Date Other constipation Solitary cyst of breast 08/20/2001 right breast Urethral diverticulum 05/18/2021 Seeing uro Urinary urgency 05/18/2021 PAST SURGICAL HISTORY Procedure Laterality Date COLONOSCOPY SCREENING 08/2021 FAMILY HISTORY Problem Relation Age of Onset Cancer Mother ovarian cancer w/ mets; Cervical Cancer Mother Hypertension Paternal Grandmother Hyperlipidemia Paternal Grandmother other (other) Paternal Grandmother pre-diabetes Social History Tobacco Use Smoking status: Never Smokeless tobacco: Never Vaping Use Vaping status: Never Used Substance Use Topics Alcohol use: Not Currently Comment: rare Drug use: Never Current Outpatient Medications Medication Sig Cholecalciferol, Vitamin D3, 50 mcg (2,000 unit) cap Take 1 capsule by mouth once daily. (Patient not taking: Reported on 07/31/2024) No current facility-administered medications for this visit. 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 As applicable, any other physician, advance practice provider, medical student, or other health professional student that will be observing or involved in the sensitive examination for educational or training purposes was discussed with the Patient or Authorized Media Relations Coordinator. The Patient or Authorized Media Relations Coordinator has agreed to proceed with the sensitive examination. (Sensitive examination includes inspection and/or palpation of the breasts, pelvis, prostate and anorectal regions). EXAM: BP 110/70 Wt 143 lb (64.9kg) LMP 05/08/2022 GENERAL: pleasant, female in no apparent distress HEENT: Normocephalic, atraumatic, mucus membranes moist, and no lesions CHEST: Normal inspiratory effort PELVIC: external genitalia normal, normal Bartholin's glands, urethra, [place]'s glands, + brown flat irregular lesion to 1:00 position of cervix, + 1 cm vulvar cyst to inferior left perineum - tenderness with palpation, good vaginal support, physiologic discharge present, normal appearing perineal body and perianal region BIMANUAL: uterus normal size, shape and consistency, no adnexal masses, and non-tender NEURO: alert and oriented x3,exam grossly non-focal EXTREMITIES: normal ASSESSMENT AND PLAN: 1. Postmenopausal bleeding - ICD9: 627.1, ICD10: N95.0 (primary diagnosis) - Declines EMB today - reports she is concerned about pain and would prefer this to be done under sedation. Consider hysteroscopy D+C based on ultrasound results - PAP TEST - Cervical lesion noted. - Mother with ovarian cancer. 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 findings negative Vulvar cyst - ICD9: 624.8, ICD10: N90.7 - Keep area clean and dry - Apply warm compresses - Worsening infection signs reviewed - to notify if worsening - CEPHALEXIN 500 MG CAPSULE Vita Wahl APRN.RODRIGO Medical Decision Making: Problems: Moderate: New problem with uncertain prognosis Data: Unique test result(s) reviewed: 3+ Unique test(s) ordered: 1 Risk: Low: Low risk from testing/treatment Moderate: Drug management Medical Decision Making Level: 4 - Moderate documented in this encounter [facility] 07-15-2024 Telephone encounter Note Patient has completed HEP B 06/14/2023 and 08/02/2023. Order already in the system for her 3rd. Just needs nurse visit. Sharmaine Felix MA [facility] 07-15-2024 Miscellaneous Notes Patient has completed HEP B 06/14/2023 and 08/02/2023. Order already in the system for her 3rd. Just needs nurse visit. Sharmaine Felix MA Patient reports X2 attempts to request hepatitis B vaccines orders from PCP's office since April 2024. States that she spoke with operators informed her that orders were needed prior to schedule. No messages have been documented or routed to PCP. Please notify patient if she is able to schedule without orders or if she needs to complete an office visit first. OK to communicate with patient via phone or MyChart. documented in this encounter [facility] 07-15-2024 Telephone encounter Note Patient reports X2 attempts to request hepatitis B vaccines orders from PCP's office since April 2024. States that she spoke with operators informed her that orders were needed prior to schedule. No messages have been documented or routed to PCP. Please notify patient if she is able to schedule without orders or if she needs to complete an office visit first. OK to communicate with patient via phone or MyChart. [facility] 03-25-2024 Telephone encounter Note Pt active on [employer]- message sent Fidelina Renteria MA [facility] 03-25-2024 Miscellaneous Notes Pt active on [employer]- message sent Fidelina Renteria MA Please let patient know her mammogram is negative. Patient should continue with annual screenings. documented in this encounter [facility] 03-25-2024 Telephone encounter Note Please let patient know her mammogram is negative. Patient should continue with annual screenings. [facility] Work Phone: 03-24-2024 Note Formatting of this n ote might be different from the original. March 25, 2024 PID: [id number] Franny Zacarias [address] [place] [id number] Dear Ms. Zacarias, We are pleased to inform you that the results of your recent breast imaging exam on 03/24/2024 are normal. Breast tissue can be either dense or not dense. Dense tissue makes it harder to find breast cancer on a mammogram and also raises the risk of developing breast cancer. Your breast tissue is dense. In some people with dense tissue, other imaging tests in addition to a mammogram may help find cancers. Talk to your healthcare provider about breast density, risks for breast cancer, and your individual situation. Early detection of cancer is very important. We also understand recommendations regarding breast cancer screening are controversial. Please discuss with your primary care provider which strategy is best for you and whether a mammogram is right for you. Your imaging studies and report will be kept on file at [facility] as part of your permanent medical record and are available for your continuing care. Thank you for allowing us to help in meeting your health care needs. Sincerely, Dr. Kang Interpreting Radiologist [facility] (Normal over 40) [facility] 03-24-2024 Miscellaneous Notes March 25, 2024 PID: [id number] Frannytaran Zacarias [address] [place] [address] Dear Ms. Zacarias, We are pleased to inform you that the results of your recent breast imaging exam on 03/24/2024 are normal. Breast tissue can be either dense or not dense. Dense tissue makes it harder to find breast cancer on a mammogram and also raises the risk of developing breast cancer. Your breast tissue is dense. In some people with dense tissue, other imaging tests in addition to a mammogram may help find cancers. Talk to your healthcare provider about breast density, risks for breast cancer, and your individual situation. Early detection of cancer is very important. We also understand recommendations regarding breast cancer screening are controversial. Please discuss with your primary care provider which strategy is best for you and whether a mammogram is right for you. Your imaging studies and report will be kept on file at [facility] as part of your permanent medical record and are available for your continuing care. Thank you for allowing us to help in meeting your health care needs. Sincerely, Dr. Kang Interpreting Radiologist [facility] (Normal over 40) documented in this encounter [facility] 03-24-2024 History of Presen t illness Narrative Radiology Service Progress Note PATIENT NAME: Franny Zacarias DATE OF SERVICE: March 24, 2024 TIME: 11:18 AM PATIENT IDENTITY VERIFICATION COMPLETED USING TWO (2) IDENTIFIERS: Name and Date of confirmed by patient verbally. FALL SCREENING: Has the patient had 2 falls in the last year or 1 fall with injury or currently using an Ambulatory Assistive Device (Walker, Cane, Wheelchair, Crutches, etc.)? No PATIENT GENDER DATA: Female. status: : No status: NO. PATIENT RELEVANT IMPLANT DATA REVIEWED: Not Applicable PATIENT PRESENTS WITH AN IMPLANTABLE OR ATTACHED ORCHARDIST: No RADIOLOGY DEPARTMENT: Mammography PERIPHERAL IV DATA: Not applicable SIGNED BY: Marco Antonio Plasencia March 24, 2024 11:18 AM documented in this encounter [facility] 02-07-2024 History of Presen t illness Narrative Images from the original note were not included. 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 She is from [facility] and lived there until 2006. See my note dated 07/05/23 for full social history. She states that she had a TB skin test when she was immig[place] to the [place]. She has lived in [place] since then and visited [place] in 2019. 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 CXR in May 2023 was unremarkable. Interval Updates: She wanted to wait 6 months and repeat the IGRA. Repeat on 11/29/23 is again a very strong positive. (TB1 and TB2 >9.96; mitogen >9.96) She denies cough, SOB, hemoptysis, unintentional weight loss or anorexia. She is very concerned about the side effects of rifampin. We discussed routine monitoring of blood work (CBC and CMP at 2 weeks and then monthly while on therapy) and that if she starts the medication we can switch if she does not tolerate. She is worried about taking this while in nursing school and would like to delay until next year. OBJECTIVE: CURRENT ANTIMICROBIALS: none MEDICATIONS: Current medications reviewed Current Outpatient Medications Medication Sig Dispense Refill Cholecalciferol, Vitamin D3, 50 mcg (2,000 unit) cap Take 1 capsule by mouth once daily. No current facility-administered medications for this visit. ALLERGIES Allergen Reactions Naproxen Hives, Swelling, Shortness of Breath Mobic [Meloxicam] Swelling, Itching PAST SURGICAL HISTORY Procedure Laterality Date COLONOSCOPY SCREENING 08/2021 Social History Tobacco Use Smoking status: Never Smokeless tobacco: Never Vaping Use Vaping Use: Never used Substance Use Topics Alcohol use: Not Currently Comment: rare Drug use: Never FAMILY HISTORY Problem Relation Age of Onset Cancer Mother ovarian cancer w/ mets; Cervical Cancer Mother Hypertension Paternal Grandmother Hyperlipidemia Paternal Grandmother other (other) Paternal Grandmother pre-diabetes Reviewed. No identified heritable predisposition to infection Immunization History Administered Date(s) Administered hepatitis B (HepB) vaccine, 3-dose series, age 20+ yr (ENGERIX-B, RECOMBIVAX HB) 06/14/2023 08/02/2023 influenza (IIV4) vaccine, age 6 mo - 64 yr, quadrivalent (AFLURIA, FLULAVAL, FLUZONE) 06/14/2023 tetanus diphtheria pertussis (Tdap) vaccine, age 7+ yr (ADACEL, BOOSTRIX) 06/14/2023 ROS A complete review of systems was performed. Pertinent findings noted here and in the HPI. OBJECTIVE: BP 121/66 Pulse 61 Wt 63.8 kg (140 lb 10.5 oz) LMP 05/08/2022 BMI 24.92 kg/m General: Patient is well appearing and in no acute distress HEENT: No scleral icterus Resp: clear to auscultation bilaterally Cardiac: no murmurs, regular rate Neuro: alert and oriented Psych: affect appropriate LDA: Lines, Drains, and Airways None Laboratory and radiologic data reviewed CBC: Lab Results Component Value Date HB 12.2 02/09/2023 HB 13.3 05/18/2021 HCT 36.1 02/09/2023 HCT 40.7 05/18/2021 WBC 5.85 02/09/2023 WBC 5.98 05/18/2021 AutoDiff: UA: Lab Results Component Value Date SPGR 1.014 02/09/2023 SPGR 1.011 05/18/2021 UGLUC Negative 02/09/2023 UGLUC Negative 05/18/2021 UBILI Negative 02/09/2023 UBILI Negative 05/18/2021 UKET Negative 02/09/2023 UKET Negative 05/18/2021 UHB 1+ 02/09/2023 UHB 1+ 05/18/2021 UPROT Negative 02/09/2023 UPROT Negative 05/18/2021 UWBC 0-5 /HPF 02/09/2023 UWBC 0-5 05/18/2021 Microbiology: Culture (no units) Date Value 03/22/2020 No growth (<1,000 CFU/ml) Culture, Urine (no units) Date Value 07/27/2023 <10,000 CFU/ml Normal urogenital ricardo 02/09/2023 10,000 -<50,000 CFU/ml Mixed microbiota (A) No results found for the last 90 days. ASSESSMENT: Franny Zacarias is a 43 year old female that is presenting in the setting of a positive PPD and follow up positive IGRA in the fall of 2022. CXR in May unremarkable and she remains asymptomatic. She wanted to wait 6 months to repeat as she did not believe the result was a true positive. Repeat IGRA in November 2023 was strongly positive (TB1 and TB2 >9.96). She is agreeable to treatment but does not want to start until next summer. We discussed the pros and cons of treatment. The risk of reactivation in a healthy, young woman not planning to undergo immunosuppression is low at this time, but risk increases as she ages. Rifampin has some adverse affects (liver injury in particular) and we would monitor bloodwork while she is on therapy. TB risk progression calculator is available at [employer]As It Is Her annual risk of developing active tuberculosis is 0.1% Cumulative lifetime risk of developing active TB (until age 80) is 3.6% RECOMMENDATIONS: 1. She will schedule an appointment in one year (I am sending a [employer] message timed to remind her) to initiate treatment. Agreed upon: Rifampin 10mg/kg (600mg daily) daily for 4 months for the treatment of latent tuberculosis. She lives in [facility]. 2. Will obtain another baseline CXR today and HIV screen. 3. 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 4. She will call me is she develops symptoms or if planned immunosuppression. I spent about 20 minutes counseling the patient and her significant other. Follow up: 1 year I spent a total of 45 minutes on the date of the service which included preparing to see the patient, [id number] patient care, completing clinical documentation, performing a medically appropriate examination, counseling and educating the patient/family/caregiver, and ordering medications, tests, or procedures. Stephane Sandoval DO, PhD Infectious Disease Staff Physician pager documented in this encounter [facility] 01-02-2024 Telephone encounter Note Pt called requesting an appointment for follow up sooner than next available 02/06. [phone] (home) Rony Wall Asst [facility] 01-02-2024 Miscellaneous Notes Pt called requesting an appointment for follow up sooner than next available 02/06. [phone] (home) Rony Wall Asst documented in this encounter [facility] 12-07-2023 Miscellaneous Notes Telephone Call We discussed that I can re-order the test but it is not likely to change. We have an appointment in January and can go through all of the treatment options. She was willing to proceed without a third TB quant. She denies any current symptoms: no fevers, cough or night sweats. Stephane Sandoval DO, PhD Staff Physician Infectious Disease pager Pt would like an order for a TB test for January as she had the test done on 11/28 when she had other lab testing done. She is concerned that the test was supposed to be done in January. [phone] (home) Rony Dobbins Computer Numerical Control Operator documented in this encounter [facility] 12-07-2023 Miscellaneous Notes Patient called in and spoke with PSS Padmini Reeder and indicated she didn't understand why her blood work for TB was run. She didn't ask for that. She didn't explain that Dr. Bhatia didn't order the but another provider. Patient is aware that she has another provider for this. Apparently any orders can be pulled 30 days prior to expected date. Padmini contacted our office to let us know. I did review the chart and results did come back positive again for TB. Provider sent a my chart message regarding this and patient has not read this note. Just FYI. Sharmaine Felix MA documented in this encounter [facility] 11-30-2023 Miscellaneous Notes Patient returned call and went over results from Dr Bhatia with understanding. Called and left a voicemail for the Patient to call back and ask for a nurse to receive the providers message. Belinda Akers, RN Let patient know her recent labs were all ok. documented in this encounter [facility] 11-29-2023 Instructions Dayton Bhatia MD - 11/29/2023 9:38 AM EDT Try to get 600-750 mg of calcium (tums) twice a day). Work on weight bearing exercise for 30-40 min a day. documented in this encounter [facility] 11-29-2023 History of Presen t illness Narrative Chief Complaint Patient presents with: Follow Up: No menses in over 12 months. Hormonal changes. Weight gain. Mood swings. Hot flashes. HPI Franny Zacarias is a 43 year old female who presents here today for 6 month follow up/diabetic screening/3rd HEP B Patient did see SMASHER back in Jul and was to be set up with DIRECTOR OF STUDENT FINANCIAL AID pelvic consult but patient says this was never done. She says she called the office and was told they would give her a call to address this and that they never did. Patient concerned she may have diabetes. Last week she was having headache's and had not eaten. She checked her blood sugar and it was inn the 140's. Claims she had only been drinking water and black coffee that day. Typically she does eat breakfast but may not eat lunch. Patient has had weight gain in the past three years. Denies feeling tired all the time. Used to be consistent with a weight around 115 lbs. Patient with hx of constipation and urethral diverticullum and those as below. Patient had a positive PD test back in the Nov saw ID and is to have repeat testing in 6 months. Had an appt in early January and this was cancelled and needs to be rescheduled. Past medical history, appointments, medications, allergies reviewed. Previous Medical History PAST MEDICAL HISTORY Diagnosis Date Other constipation Solitary cyst of breast 08/20/2001 right breast Urethral diverticulum 05/18/2021 Seeing uro Urinary urgency 05/18/2021 Previous Surgical History PAST SURGICAL HISTORY Procedure Laterality Date COLONOSCOPY SCREENING 08/2021 Family History FAMILY HISTORY Problem Relation Age of Onset Cancer Mother ovarian cancer w/ mets; Cervical Cancer Mother Hypertension Paternal Grandmother Hyperlipidemia Paternal Grandmother other (other) Paternal Grandmother pre-diabetes Patient Allergies ALLERGIES Allergen Reactions Naproxen Hives, Swelling, Shortness of Breath Mobic [Meloxicam] Swelling, Itching Current Medications No current outpatient medications on file prior to visit. No current facility-administered medications on file prior to visit. Social History Social History Tobacco Use Smoking status: Never Smokeless tobacco: Never Vaping Use Vaping Use: Never used Substance Use Topics Alcohol use: Not Currently Comment: rare Drug use: Never Review of Symptoms REVIEW OF SYSTEMS GENERAL: No weight loss, malaise or fevers or night sweats NECK: Negative for lumps, goiter, pain and significant neck swelling RESPIRATORY: Negative for cough, hemoptysis, wheezing, COPD, dyspnea or shortness of breath CARDIOVASCULAR: Negative for chest pain, leg swelling, hypertension, CHF or palpitations PSYCH: Negative for sleep disturbance, but has noted mood issues in the past year. ENDOCRINE: Negative for cold or heat intolerance, patient does drink a lot of water and urinates often but not feeling frequently thirsty. She drinks more because she is concerned she may have diabetes. NEURO: No history of syncope, paralysis, seizures or tremors. Has the occasional headache depending on what she may eat. EXAM: BP 104/70 Pulse 60 Ht 160 cm (5' 3) Wt 61.7 kg (136 lb) LMP 05/08/2022 SpO2 98% BMI 24.09 kg/m Last 4 Encounter Wt Readings: Date: Wt: 11/29/2023 61.7 kg (136 lb) 11/07/2023 61.2 kg (135 lb) 07/27/2023 63.5 kg (140 lb) 07/05/2023 62.6 kg (138 lb) General Appearance: Well appearing, alert, in no acute distress, well-hydrated, well nourished.. Neck: Supple, no adenopathy; thyroid symmetric, normal size, no bruits. Lungs: Lungs clear to auscultation. No wheezing, rhonchi, rales.. Heart: RRR without murmur, gallop, or rubs. No ectopy. Abdomen: Normal abdominal exam, Abdomen soft, non-tender. Bowel sounds normal. No masses, organomegaly. Extremities: No deformities, edema, skin discoloration, Good capillary refill. . Peripheral Pulses: Normal. Health Maintenance List Hepatitis C Screening Never done HIV Screening Never done Covid-19 Vaccine(2022- season) Never done Behavioral Health Screening Never done Mammogram Screening due on 11/10/2023 Hepatitis B Vaccine(3 of 3 - 19+ 3-dose series) due on 12/14/2023 Pap Testing due on 03/22/2025 HPV Testing due on 03/22/2025 DTaP,Tdap,Td Vaccine(2 - Td or Tdap) due on 06/14/2033 Influenza Vaccine Completed HPV Vaccine Aged Out Data reviewed A/P ASSESSMENT/PLAN: 1. Weight gain - ICD9: 783.1, ICD10: R63.5 (primary diagnosis) Check - COMPREHENSIVE METABOLIC PANEL - THYROID STIMULATING HORMONE - T4 FREE/FREE THYROXINE Advised patient this may just be normal with aging and decreased metabolism with menopause. 2. Encounter for screening for diabetes mellitus - ICD9: V77.1, ICD10: Z13.1 Check - HEMOGLOBIN A1C - COMPREHENSIVE METABOLIC PANEL 3. Encounter for lipid screening for cardiovascular disease - ICD9: V77.91, V81.2, ICD10: Z13.220, Z13.6 Check - LIPID PANEL, NONFASTING 4. TB lung, latent - ICD9: 795.51, ICD10: Z22.7 - patient following up with ID in a few months for re-check 5. Need for vaccination - ICD9: V05.9, ICD10: Z23 - HEP B VACCINE, 3-DOSE, AGE 20+ YR (ENGERIX-B, RECOMBIVAX HB): #3 going to be given and then patient declined because her arm was hurting and so she set up a NV for Hep B#3 to be given 12/06/2023 Possible postmenopausal: discussed placing her on Celexa or Effexor and at this time declined and feels she is doing ok. We also reviewed calcium intake at 600 mg twice a day and 2,000 international unit(s), of Vit D. Also, encouraged weight bearing exercise. Advised her to contact her SMASHER to help facilitate the referral to DIRECTOR OF STUDENT FINANCIAL AID Pelvic. F/u in 6 months TED Muñiz spent a total of 45 minutes on the date of the service which included preparing to see the patient, [id number] patient care, completing clinical documentation, performing a medically appropriate examination, counseling and educating the patient/family/caregiver and ordering medications, tests, or procedures. Dayton Bhatia MD documented in this encounter [facility] 08-02-2023 History of Presen t illness Narrative Patient presents for Hepatitis B vaccine. Denies any problems at this time. Tolerated injection well. Nilda Garcia LPN documented in this encounter [facility] 07-30-2023 Miscellaneous Notes Patient notified and voiced understanding of below. Patient transferred to schedule with urology per request. Stormy Hough RN Blood could be from menses if she was spotting or on period around that time. Ketones means urine was concentrated. Does she have a history of kidney stones because that is another reason for those findinbgs. culture was negative so doesn't seem to be UTI. I would push fluids and if fever, or severe pain may need to go to ED for those symptoms. Consider urology appointment. Ivanna Stauffer MD Notified patient that her urine culture was negative. Patient asking about the abnormal UA results. Patient is having pressure when she urinates and feeling like she can't empty her bladder all the way. Can you please review in SW's absence. Elizabeth Calderón RN Left message to call office. Stormy Hough RN Patient called requesting results of urine test Please call [phone] with results documented in this encounter [facility] 07-24-2023 Miscellaneous Notes Telephone encounter I called the patient to inform her that a letter was sent to her MyChart for clearance for school. As long as she remains asymptomatic (and she is very low likelihood of progression), this would at worst be classified as LTBI. She was advised to call me KIKE if she develops a cough, hemoptysis, unintentional weight loss, fevers, etc. for a repeat CXR. Will re-evaluate in 6 months. Stephane Sandoval DO, PhD Staff Physician Infectious Disease pager documented in this encounter [facility] 07-23-2023 Miscellaneous Notes Pt called in asking about if she you could write up a letter for her school stating that she is not contagious with the positive TB. Pt can be reached at [phone] Please review and advise Thank you, SALLY Felipe documented in this encounter [facility] 07-06-2023 Miscellaneous Notes Pt was seem at [facility] this week. Lidya Carvalho LPN Message left for patient asking for her to return call to address provider's message. She need to follow-up with ID for this. They didn't give me anymore information than that. Did they reach out to her for appointment? Juana Martins APRN.CNP Patient notified. She is asking if she needs to wait for an appointment with ID before getting any results or if she can have those prior. Please review and advise. Ashlee Ferro MA Infectious disease has got back with me and will reach out to patient to make appointment for further evaluation, please let patient know. Juana Martins APRN.CNP documented in this encounter [facility] 07-02-2023 Miscellaneous Notes See 06/28/2023 OV note and 07/02/2023 TE. Michelle Pineda RN TC to patient who verbalized understanding of providers message below. Patient is agreeable to seeing infectious disease. Please contact patient and assist in scheduling. Thank you. ZION Mathews Left vm for patient to return call to nurse for provider's message. Let patient know I placed a referral to ID. There is no reason to repeat the test because she already had a abnormal skin test that was then proven to be abnormal on the blood test. If if the second test came back neg I would still tell her she needs treated. Called and spoke with pt and given Dr. Bhatia's information again. Pt is very adamant about doing another TB test. If it returns the same then she would like to see the infectious disease doctor but she would really like to be retested. Spoke with patient and she indicated that her concern was side effects with the medication. Explained several times the reason for the treatment. Patient is concerned is the testing correct? Patient would like to be tested again and what time frame can that be completed. As she doesn't want treated for medication if she doesn't have TB. I did speak with Dr. Bhatia and he indicated that would not need tested again. He was suggesting if she had concerns we could do a consult for infectious disease. Sharmaine Felix MA Let patient know she appears to have latent TB. This is not contagious and can cont with work and school. However needs treated to prevent the risk of becoming active. There are two Tx options: 1) Rifampin 600 mg a day for 4 months Or 2) Rifampin 600 mg a day for 3 months and isoniazid 300 mg a day for 3 months. Rifampin will need base line labs and then repeat in a month to see if ok. With the combo with isoniazid will need base line labs and labs every month for 3 months. Patient calls to ask Dr. Bhatia to verify that there is no concern for TB as discussed at [facility]. Patient was told that Blood TB Screen wouldn't be back for a week and results populated to today as positive but could also be related to recent Tuberculin Skin Test. 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 Michelle Pineda, RN documented in this encounter [facility] 06-14-2023 History of Presen t illness Narrative Patient presents for Hepatitis B, TDAP, and flu vaccines. Denies any problems at this time. Tolerated injections well. Nilda Garcia LPN documented in this encounter [facility] 06-06-2023 Miscellaneous Notes done Patient scheduled for nurse visit 06/14/23 to receive Hepatitis B, and TDAP vaccines. Please place order at this time. Nilda Garcia LPN documented in this encounter [facility] 06-02-2023 Note HNO ID: [id number] Author: Lisa Bermudez APRN.MINISTER ASSISTANT Service: ? Author Type: Nurse Practitioner Type: Progress Notes Filed: 06/02/2023 3:53 PM Note Text: June 02, 2023 Subjective Chief Complaint: Medication Problem (TB read positive/Pt came in today to have TB read and the spot came back red,warm to the touch,raised/) HPI: Franny Zacarias is a 43 year old female who presents today for positive TB skin test. Patient states that she received a PPD tuberculosis test in her left forearm 48 to 72 hours ago. Patient came in to have TB read. States that the area is tender to the touch swollen and red. States that there was itching to the site last night. Has had a PPD skin test years ago without a reaction. Denies any cold-like symptoms. 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 PAST MEDICAL HISTORY Diagnosis Date Other constipation Solitary cyst of breast 08/20/2001 right breast Urethral diverticulum 05/18/2021 Seeing uro Urinary urgency 05/18/2021 PAST SURGICAL HISTORY Procedure Laterality Date COLONOSCOPY SCREENING 08/2021 FAMILY HISTORY Problem Relation Age of Onset Cancer Mother ovarian cancer w/ mets; Cervical Cancer Mother Hypertension Paternal Grandmother Hyperlipidemia Paternal Grandmother other (other) Paternal Grandmother pre-diabetes Social History Tobacco Use Smoking status: Never Smokeless tobacco: Never Vaping Use Vaping Use: Never used Substance Use Topics Alcohol use: Not Currently Comment: rare Drug use: Never ALLERGIES Allergen Reactions Naproxen Hives, Swelling, Shortness of Breath Mobic [Meloxicam] Swelling, Itching There is no immunization history for the selected administration types on file for this patient. Current Medications: acetaminophen/pamabrom (MIDOL ORAL) Take by mouth as directed. (Patient not taking: No sig reported) acetaminophen/pyrilam/pamabrom (PAMPRIN MULTI-SYMPTOM ORAL) Take by mouth. (Patient not taking: No sig reported) Ibuprofen 200 mg cap Take by mouth every 6 hours as needed. L.acidophilus-L.rhamnosus (RICARDOJEN WOMEN) 15 billion cell capsule Take 1 capsule by mouth once daily. (Patient not taking: Reported on 06/02/2023) linaclotide (LINZESS) 145 mcg capsule Take 1 capsule by mouth once daily. Review of Systems Constitutional: Negative for chills, fever and malaise/fatigue. HENT: Negative. Eyes: Negative. Respiratory: Negative. Cardiovascular: Negative. Skin: Pain and itching left forearm Objective BP 114/83 Pulse 72 Temp 98.5 Resp 20 Wt 140 lb (63.5kg) SpO2 98% LMP 05/08/2022 Physical Exam Vitals reviewed. Constitutional: General: She is not in acute distress. Appearance: Normal appearance. She is not ill-appearing, toxic-appearing or diaphoretic. HENT: Head: Normocephalic and atraumatic. Cardiovascular: Rate and Rhythm: Normal rate and regular rhythm. Heart sounds: Normal heart sounds. No murmur heard. No friction rub. No gallop. Pulmonary: Effort: Pulmonary effort is normal. No respiratory distress. Breath sounds: Normal breath sounds. No stridor. No wheezing, rhonchi or rales. Chest: Chest wall: No tenderness. Skin: General: Skin is warm and dry. Capillary Refill: Capillary refill takes less than 2 seconds. Neurological: Mental Status: She is alert and oriented to person, place, and time. Psychiatric: Mood and Affect: Mood normal. Behavior: Behavior normal. Thought Content: Thought content normal. Judgment: Judgment normal. Informed patient that this likely is an allergic reaction to the PPD solution however I cannot ignore the size of the redness surrounding the injection site. Therefore will proceed with chest x-ray and [facility] to [facility] blood draw. Patient is in agreement with plan of care. ASSESSMENT/PLAN: 1. 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 Once I have this information - I will contact you with results. The results will filter into your [employer] account so you can print them out for school. -warm compresses to the site - XR CHEST 2V FRONTAL/LAT - BLOOD TB SCREEN Lisa L. Fabian, PALLIATIVE SENIOR NP.MINISTER ASSISTANT The above reflects my independent exam and review of the patient's medical record. I saw and examined the patient myself personally. Parts of the HPI, ROS, exam, impression/plan, and testing results may have been copied from the current or previous clinical notes and remain pertinent to today's visit. Current changes have been made and documented today. Other parts or data may have been deleted if not relevant for today. Plan as outlined above. [facility] 06-02-2023 Note HNO ID: [id number] Author: Agnes Kerr LPN Service: ? Author Type: LICENSED NURSE Type: Progress Notes Filed: 06/02/2023 3:53 PM Note Text: TB read positive 50mm. The area is red/swollen/warm to touch/itchy. I notified the provider and the patient was registered to be seen. Agnes Kerr LPN [facility] 06-02-2023 History of Presen t illness Narrative Images from the original note were not included. June 02, 2023 Subjective Chief Complaint: Medication Problem (TB read positive/Pt came in today to have TB read and the spot came back red,warm to the touch,raised/) HPI: Franny Zacarias is a 43 year old female who presents today for positive TB skin test. Patient states that she received a PPD tuberculosis test in her left forearm 48 to 72 hours ago. Patient came in to have TB read. States that the area is tender to the touch swollen and red. States that there was itching to the site last night. Has had a PPD skin test years ago without a reaction. Denies any cold-like symptoms. 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 PAST MEDICAL HISTORY Diagnosis Date Other constipation Solitary cyst of breast 08/20/2001 right breast Urethral diverticulum 05/18/2021 Seeing uro Urinary urgency 05/18/2021 PAST SURGICAL HISTORY Procedure Laterality Date COLONOSCOPY SCREENING 08/2021 FAMILY HISTORY Problem Relation Age of Onset Cancer Mother ovarian cancer w/ mets; Cervical Cancer Mother Hypertension Paternal Grandmother Hyperlipidemia Paternal Grandmother other (other) Paternal Grandmother pre-diabetes Social History Tobacco Use Smoking status: Never Smokeless tobacco: Never Vaping Use Vaping Use: Never used Substance Use Topics Alcohol use: Not Currently Comment: rare Drug use: Never ALLERGIES Allergen Reactions Naproxen Hives, Swelling, Shortness of Breath Mobic [Meloxicam] Swelling, Itching There is no immunization history for the selected administration types on file for this patient. Current Medications: acetaminophen/pamabrom (MIDOL ORAL) Take by mouth as directed. (Patient not taking: No sig reported) acetaminophen/pyrilam/pamabrom (PAMPRIN MULTI-SYMPTOM ORAL) Take by mouth. (Patient not taking: No sig reported) Ibuprofen 200 mg cap Take by mouth every 6 hours as needed. L.acidophilus-L.rhamnosus (FLORAJEN WOMEN) 15 billion cell capsule Take 1 capsule by mouth once daily. (Patient not taking: Reported on 06/02/2023) linaclotide (LINZESS) 145 mcg capsule Take 1 capsule by mouth once daily. Review of Systems Constitutional: Negative for chills, fever and malaise/fatigue. HENT: Negative. Eyes: Negative. Respiratory: Negative. Cardiovascular: Negative. Skin: Pain and itching left forearm Objective BP 114/83 Pulse 72 Temp 98.5 Resp 20 Wt 140 lb (63.5kg) SpO2 98% LMP 05/08/2022 Physical Exam Vitals reviewed. Constitutional: General: She is not in acute distress. Appearance: Normal appearance. She is not ill-appearing, toxic-appearing or diaphoretic. HENT: Head: Normocephalic and atraumatic. Cardiovascular: Rate and Rhythm: Normal rate and regular rhythm. Heart sounds: Normal heart sounds. No murmur heard. No friction rub. No gallop. Pulmonary: Effort: Pulmonary effort is normal. No respiratory distress. Breath sounds: Normal breath sounds. No stridor. No wheezing, rhonchi or rales. Chest: Chest wall: No tenderness. Skin: General: Skin is warm and dry. Capillary Refill: Capillary refill takes less than 2 seconds. Neurological: Mental Status: She is alert and oriented to person, place, and time. Psychiatric: Mood and Affect: Mood normal. Behavior: Behavior normal. Thought Content: Thought content normal. Judgment: Judgment normal. Informed patient that this likely is an allergic reaction to the PPD solution however I cannot ignore the size of the redness surrounding the injection site. Therefore will proceed with chest x-ray and quant to [facility] blood draw. Patient is in agreement with plan of care. ASSESSMENT/PLAN: 1. 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 Once I have this information - I will contact you with results. The results will filter into your [facility] [employer] account so you can print them out for school. -warm compresses to the site - XR CHEST 2V FRONTAL/LAT - BLOOD TB SCREEN Lisa Bermudez APRN.CNP The above reflects my independent exam and review of the patient's medical record. I saw and examined the patient myself personally. Parts of the HPI, ROS, exam, impression/plan, and testing results may have been copied from the current or previous clinical notes and remain pertinent to today's visit. Current changes have been made and documented today. Other parts or data may have been deleted if not relevant for today. Plan as outlined above. TB read positive 50mm. The area is red/swollen/warm to touch/itchy. I notified the provider and the patient was registered to be seen. Agnes Kerr LPN documented in this encounter [facility] 06-02-2023 Instructions Lisa Bermudez APRN.CNP - 06/02/2023 3:42 PM EDT -Go to [facility] Emergency Department and inform them you have out-patient blood work and an X-ray ordered. Once I have this information - I will contact you with results. The results will filter into your [employer] account so you can print them out for school. -warm compresses to the site documented in this encounter [facility] 05-31-2023 Note HNO ID: [id number] Author: Ila Marino Service: ? Author Type: ? Type: Progress Notes Filed: 06/08/2023 2:26 PM Note Text: Venipuncture left anticub tolerated well [facility] 05-31-2023 History of Presen t illness Narrative Venipuncture left anticub tolerated well documented in this encounter [facility] 03-19-2023 Miscellaneous Notes I called patient. Patient scheduled Letter also mailed. Elizabeth Calderón RN 3rd attempt to call. Voicemailbox not set up Attempted to call patient. Voicemail is not set up Attempted to contact pt, no voicemail. Bruxie message sent to pt re: results. Gayla Matias LPN' ----- Message from Angie Blackwell MD sent at 03/08/2023 10:28 AM EDT ----- Notify pt of possible adenomyosis and a 3.4 cm fibroid present. Both benign conditions that can cause heavy bleeding. However her recent blood work is in menopausal range. Given this and that she has not had periods, recommend follow up appointment to discuss menopausal expectations documented in this encounter [facility] 07-05-2023 Miscellaneous Notes Pt given ultrasound follow up appt on 03/12/23. Jumot message sent to pt. Gayla Matias LPN Patient is calling to schedule a [address] up with Dr Blackwell but patient is not scheduled until 02/26 for ultrasound and I feel not to schedule an office visit until after ultrasound and next opening is Aug. And patient is wanting sooner please advise the patient. documented in this encounter [facility] 02-12-2023 Miscellaneous Notes See result note Flagyl sent documented in this encounter [facility] 02-09-2023 History of Presen t illness Narrative Digital Sales Director offered: Patient declines. Meléndez is a 43 year old who presents for an annual gynecologic exam with complaints, secondary amenorrhea, fatigue, weight gain . She is concerned about thyroid disease and notes a family history. She reports having a UA in the past with her PCP showing blood. She feels lower pelvic bloating and has constipation. Chronic pelvic pain and dyspareunia. Menses: No menses since 04/2023. Contraception: none HPV vaccine: No Last Pap: 03/25/2020 normal HPV: 03/24/2020 negative History of abnormal pap: No Last mammogram: 2022normal Sexually active: No- deep dyspareunia Pelvic US 2021: Impression A anteverted uterus that measures 75 mm x 48 mm x 47 mm. The myometrium is suspicious of adenomyosis. In addition, 1 fibroid is observed and are described below. The fibroid appears intramural. Fibroid(s): Size 37 mm x 32 mm x 35 mm. Mean 34.7 mm. Vol 21.698 cm . Fundal The central endometrium complex measures 4.2 mm in combined thickness and there is a small amount of fluid present within the cavity. No abnormal blood flow to suggest a polyp or focal endometrial pathology is observed within the endometrial complex. The contour of the endometrial cavity was normal on 3-D imaging. Both ovaries are visualized and appear normal. No adnexal masses were observed. There is no free fluid visualized in the peritoneal cavity. Positive slide sign of adnexa and posterior CDS. Recommendations Follow up as clinically indicated. OB History T0 L0 SAB0 IAB0 Ectopic0 Multiple0 Live Births0 Comment: menarche age 16 or 17 Drugless Doctor History LMP: 05/08/2022, Having periods Age at Menarche: Age at First : Age at Menopause: Drugless Doctor History Comments: Sexual Activity: Yes; Male Contraception: No contraception data on record PAST MEDICAL HISTORY Diagnosis Date Other constipation Solitary cyst of breast 08/20/2001 right breast Urethral diverticulum 05/18/2021 Seeing uro Urinary urgency 05/18/2021 PAST SURGICAL HISTORY Procedure Laterality Date COLONOSCOPY SCREENING 08/2021 FAMILY HISTORY Problem Relation Age of Onset Cancer Mother ovarian cancer w/ mets; Cervical Cancer Mother Hypertension Paternal Grandmother Hyperlipidemia Paternal Grandmother other (other) Paternal Grandmother pre-diabetes SOCIAL HISTORY Social History Tobacco Use Smoking status: Never Smokeless tobacco: Never Vaping Use Vaping Use: Never used Substance Use Topics Alcohol use: Not Currently Comment: rare Drug use: Never REVIEW OF SYSTEMS Abdomen: +Pain, bloating, constipation Bladder: No dysuria, gross hematuria, urinary frequency, urinary urgency, or incontinence. Breast: No breast lumps, nipple d/c, overlying skin changes, redness or skin retraction. Allergies and current medication updated:Yes EXAM: BP 100/60 Ht 5' 3 (1.60m) Wt 140 lb (63.5kg) LMP 05/08/2022 BMI 24.81 kg/(m^2). GENERAL: pleasant, female in no apparent distress HEENT: Normocephalic, atraumatic, mucus membranes moist, and no lesions NECK: full range of motion DERMATOLOGY: Normal and without lesions BREAST: soft, non-tender, symmetric, no dominant mass, normal nipple-areolar complex, no lymphadenopathy, and no nipple discharge CHEST: Normal inspiratory effort ABDOMEN: soft and tenderness across entire lower abdomen PELVIC: external genitalia normal, normal Bartholin's glands, urethra, [place]'s glands, no vulvar lesions, no cervical lesions, good vaginal support, physiologic discharge present, normal appearing perineal body and perianal region BIMANUAL: Diffuse tenderness and limited exam given pain RECTOVAGINAL: deferred. NEURO: exam grossly non-focal EXTREMITIES: normal ASSESSMENT/PLAN: 1) Health maintenance: Pap/HPV up to date. Mammogram up to date . Nutrition, exercise and routine health maintenance exams reviewed. Chronic pelvic pain: Check another pelvic US given new symptoms. Recommended pelvic floor PT in past. H/o BV infection - check BV and start probiotic. Recommend chronic pelvic pain clinic once pelvic US returns. Family history of ovarian cancer: Referred to genetics at time of last annual. Patient has not scheduled. Gave her the number to call to schedule and recommend doing so. Secondary amenorrhea: Patient did not yet complete repeat blood work after last visit. Orders placed for FSH, estradiol, prolactin, TSH, T4. Check test. Microscopic hematuria on test in the past: Recheck UA and urine cx. If still microscopic hematuria, recommend urology. General malaise and fatigue: Check CBC with blood work. She missed her appointment with PCP so recommend re scheduling. 2) Contraception: none. Contraceptive options reviewed and information provided. 3) STD screening: Declined STD check. 4) Follow up 2 weeks after pelvic US and repeat blood work. Angie Blackwell DO documented in this encounter [facility] 02-05-2023 History of Presen t illness Narrative Scan on 02/04/2023 8:00 PM by External Provider, DANIELLA: Consultation - Emergency Medicine Scan on 02/04/2023 12:37 PM by External Provider, DANIELLA: X-ray documented in this encounter [facility] 11-10-2022 Miscellaneous Notes November 13, 2022 PID: [id number] Franny Zacarias [address] [place] [address] Dear Ms. Zacarias, We are pleased to inform you that the results of your recent breast imaging exam on 11/09/2022 are normal. Your mammogram demonstrates that you have dense breast tissue, which could hide abnormalities. Dense breast tissue, in and of itself, is a relatively common condition. Therefore, this information is not provided to cause undue concern; rather, it is to raise your awareness and promote discussion with your health care provider regarding the presence of dense breast tissue in addition to other risk factors. Early detection of cancer is very important. We also understand recommendations regarding breast cancer screening are controversial. Please discuss with your primary care provider which strategy is best for you and whether a mammogram is right for you. Your imaging studies and report will be kept on file at [facility] as part of your permanent medical record and are available for your continuing care. Thank you for allowing us to help in meeting your health care needs. Sincerely, Dr. Greer Interpreting Radiologist [facility] (Normal over 40) documented in this encounter [facility] 08-03-2022 Miscellaneous Notes Patient notified of message below. She verbalized understanding and states she will pickup driver disc today. Disc placed at ortho/podi PSS desk. Called patient to inform her that her images have been uploaded to her chart and disc is ready for pickup driver. Patient did not answer. No VM available. Flory Alberto LPN documented in this encounter [facility] 07-24-2022 History of Presen t illness Narrative Per Dr. Tenorio, Franny was provided with Ankle brace, size S, and instructed/educated in its application, wear, and care. All questions were answered, and patient was able to demonstrate competence with the necessary skills to utilize the above equipment. Belinda Curtis RN Brace to be billed by [facility] Images from the original note were not included. FOLLOW UP PODIATRIC OFFICE VISIT Chief Complaint: This 42 year old who presents for follow up:right ankle instability Patient presents to clinic for follow-up right ankle instabliity Patient has been doing therapy at home and she does feel some improvement. She has mri from November to review PAIN EVALUATION 07/24/2022 1131 Pain Level: 3 was 10/10 2 weeks ago Pain Location: Ankle-Right Duration Units: Months Frequency: Intermittent Intervention/Comfort measure: Reposition;Distractions;Relaxati on Hemoglobin A1C Date Value Ref Range Status 05/18/2021 5.3 4.3 - 5.6 % Final Comment: [place] [employer] guidelines indicate that patients with HgbA1c in the range 5.7-6.4% are at increased risk for development of diabetes, and intervention by lifestyle modification may be beneficial. HgbA1c greater or equal to 6.5% is considered diagnostic of diabetes. PCP: Dayton Bhatia MD PAST MEDICAL HISTORY Diagnosis Date Other constipation Solitary cyst of breast 08/20/2001 right breast Urethral diverticulum 05/18/2021 Seeing uro Urinary urgency 05/18/2021 Current Outpatient Medications Medication Sig Ibuprofen 200 mg cap Take by mouth every 6 hours as needed. acetaminophen/pyrilam/pamabrom (PAMPRIN MULTI-SYMPTOM ORAL) Take by mouth. (Patient not taking: No sig reported) linaclotide (LINZESS) 145 mcg capsule Take 1 capsule by mouth once daily. acetaminophen/pamabrom (MIDOL ORAL) Take by mouth as directed. (Patient not taking: No sig reported) No current facility-administered medications for this visit. ALLERGIES Allergen Reactions Naproxen Hives, Swelling, Shortness of Breath Mobic [Meloxicam] Swelling, Itching PAST SURGICAL HISTORY Procedure Laterality Date COLONOSCOPY SCREENING 08/2021 Physical Exam: OBJECTIVE: Constitutional: Pt is a well developed 42 year old female who is alert, oriented, cooperative and in no apparent distress. Eyes: Following during examination. No redness or drainage. Respiratory: RR normal and nonlabored. Even breathing. No evidence of distress. Psychology: Patient is engaged during conversation. Normal affect and mood. Does not appear depressed or anxious. NVSI unchanged from previous visit. Dermatological: Nails 1-5 b/l are normal. Webspaces clean and dry 1-4 b/l. Skin appears well hydrated and supple. good color, texture, turgor. No open lesions present. No callosities present. Musculoskeletal/Orthopaedic: Patient has pain to palpation of right lateral ankle along anterior talofibular ligament No laxity with anterior drawer ASSESSMENT: (M25.371) Ankle instability, right (primary encounter diagnosis) (S93.991A) Sprain of anterior talofibular ligament of right ankle, initial encounter PLAN: Discussed right ankle instability/right ankle sprain. Discussed conservative care ie bracing or therapy vs surgical repair. Patient has elected to pursue therapy Referral made for physical therapy Ankle brace dispense If condition fails to improve, consider lateral ankle stabilization Attempted to review mri but was unable to open. Per report, there is scarring of right ATFL and right cfl Chon Tenorio DPM AMB ROOMING INTAKE FLOWSHEET DATA Risk Screening Do you have concerns about personal safety or safety in the home?: No Pain Pain Level: 3 (was 10/10 2 weeks ago) Pain Location: Ankle-Right Duration Units: Months Frequency: Intermittent Intervention/Comfort measure: Reposition, Distractions, Relaxation Patient presents with: Right Ankle - Established Patient, Follow Up, Pain Patient presents for follow up of right ankle pain. Was seen in March for this. Patient brought with her CD of MRI from November. Patient states that a few weeks ago she had a lot of pain and her right knee was locking up. Began following PT exercises and noticed some improvement. documented in this encounter [facility] 07-17-2022 History of Presen t illness Narrative Episode Visit Count: 2 Therapist That Will Accept/Oversee The Plan Of Care: Jeremias Brody Start of Care Date: 04/26/22 Onset Date: 03/22/22 Plan of Care Certification Date: 07/17/22 Next Certification Due Date: 08/21/22 Patient Identified by Name and Date of : Yes REHABILITATION AND SPORTS THERAPY PHYSICAL THERAPY PROGRESS REPORT PLAN OF CARE UPDATE: Assessment: Franny Zacarias demonstrates difficulty with walking and working and improvements in pain intensity, and level of independence with the HEP with easier time walking. She hasprogressed toward goals. Patient continues to present with impairments in ADL's, independence in exercise, overall function, and strength that interfere with walking;stair negotiation . Current prognosis is Good due to: current objective clinical presentation;good overall health status . Possible positive SLUMP test seated on the RLE She will benefit from continued skilled therapy services to meet the updated goals for this plan of care as noted below. Goals updated 07/17/2022 Goals for Episode of Care: created on 04/26/22 through 07/05/22 Pt will be able to perform a SL stance without increased pain and without a LOB in 10 weeks or less - Not assessed this visit Pt will demo R ankle strength of 5/5 in 10 weeks to improve ankle stability with ADL's - Not met, will continue Pt will report being able to negotiate stairs without pain - Not assessed Pt will report being able to complete work duties with 1/10 pain or less by the end of the day to improved productivity and QOL - Progressed, will continue [place] in home exercise program. Progressing, will continue Patient Goals: Decrease pain Patient Goals: Decrease pain Planned Interventions, Frequency, and Duration: 1x/week, 4 weeks Total Number of Visits Planned: 4 Patient to be seen for Therapeutic exercise (92125);Neuromuscular re-education (74645);Manual therapy (13595);Therapeutic activities (15488);Self-long term management (12733);Gait Training (98285);Patient/Family/Caregiver Education PLAN FOR NEXT VISIT: Ankle strengthening. Further assess knee pain. SUBJECTIVE: Patient Reason for Visit: Hard to walk. Pain from the knee down to the foot. The Knee locked. Patient Goals: Decrease pain Functional Limitations: walking;stair negotiation Prior Level of Function: Independent without limitations Intake Information: Prescription present Previous Treatment: Heat Pain: Pain Pain Level: 2 Pain Location: Ankle - Right (lateral ankle) Post Treatment Pain Post Treatment Pain Location: Ankle - Right PROMIS Scales Higher is Better 05/24/2020 05/18/2021 GH Physical - Score 42.3 47.7 (Good) GH Physical - Percentile 22 % 41 % GH Mental - Score 43.5 45.8 (Good) GH Mental - Percentile 26 % 34 % T-scores: mean of general population = 50. 5 points is clinically meaningfully difference Percentiles provide an indication of how the patient's score ranks in relation to the general population. Higher percentile rankings indicate better function/quality of life. 50th percentile is the average of the general population and indicates half of respondents had a worse score. T-scores: mean of general population = 50. 5 points is clinically meaningfully difference Percentiles provide an indication of how the patient's score ranks in relation to the general population. Higher percentile rankings indicate better function/quality of life. 50th percentile is the average of the general population and indicates half of respondents had a worse score. OBJECTIVE MEASURES WITH LEVEL OF FUNCTION: Lumbar Spine AROM Lumbar Flexion: Normal Lumbar Extension: Minimal limitation Lumbar R Side-Bend: Normal Lumbar L Side-Bend: NormalLumbar flexion WNL LE AROM R LE AROM: WNL L LE AROM: WNL LE Flexibility Flexibility: Hamstring Flexibility R Hamstring Flexibility: WNL L Hamstring Flexibility: WNL LE Strength R Hip Extension: 3+/5 (Pain limiting) R Hip Flexion (L2): 4/5 (brings on anterior knee pain) R Ankle Dorsiflexion (L4): 4+/5 R Ankle Inversion: 4+/5 R Ankle Eversion: 4+/5 Gait Gait Observation: Genu vlgum RLE>LLE TREATMENT: Therapeutic Exercise: 1: All objective measures taken this session 2: Supine bridge x 10 (caused 4/10 pain at anterior R ankle - stopped due to this) 3: Ankle 3 way x 10 each, BTB Skilled Intervention: Patient was educated in proper exercise technique and purpose for exercises. Correct performance of therapeutic exercises was facilitated with verbal and visual cuing. Billing Therapeutic Exercise Treatment Minutes: 45 Total Treatment Time Minutes (timed/untimed): 45 Jeremias Brody PT documented in this encounter [facility] 04-26-2022 History of Presen t illness Narrative Episode Visit Count: 1 Therapist That Will Oversee The Plan Of Care: Jeremias Brody Start of Care Date: 04/26/22 Onset Date: 03/22/22 Plan of Care Certification Date: 04/26/22 Next Certification Due Date: 05/31/22 Patient Identified by Name and Date of : Yes REHABILITATION AND SPORTS THERAPY PHYSICAL THERAPY EVALUATION PLAN OF CARE: Assessment: Franny Zacarias presents with chief complaint of R lateral ankle pain that interferes with walking;stair negotiation . She presents with impairments in ADL's, gait, independence in exercise, and strength. Prognosis for therapy is Good due to: current objective clinical presentation;good overall health status . Pt demonstrates increased pain with palpation of the ATFL, talar tilt test, and with anterior drawer of the R ankle that does demonstrate some hypermobility compared to the L ankle. She will benefit from skilled therapy services to meet the goals established for this plan of care as noted below. Goals for Episode of Care: created on 04/26/22 through 07/05/22 Pt will be able to perform a SL stance without increased pain and without a LOB in 10 weeks or less Pt will demo R ankle strength of 5/5 in 10 weeks to improve ankle stability with ADL's Pt will report being able to negotiate stairs without pain Pt will report being able to complete work duties with 1/10 pain or less by the end of the day to improved productivity and QOL [place] in home exercise program. Patient Goals: Decrease pain Planned Interventions, Frequency, and Duration: Current Frequency: 1x/week Duration: 4 weeks Total Number of Visits Planned: 4 Planned Treatment Interventions: Therapeutic exercise (21315);Neuromuscular re-education (65571);Manual therapy (44292);Therapeutic activities (80251);Self-long term management (78908);Gait Training (05539);Patient/Family/Caregiver Education PLAN FOR NEXT VISIT: Progress ankle stability exercises Patient demonstrates good understanding of plan of care and treatment. The above goals and plan of care were discussed and agreed upon by patient/family. SUBJECTIVE: Franny Zacarias is a 42 year old female seen today for Ankle sprain before COVID. Then this happened again recently. Pt feels pressure when sitting. Walks a lot for her job which makes the pain get worse. 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 5 points is clinically meaningfully difference Percentiles provide an indication of how the patient's score ranks in relation to the general population. Higher percentile rankings indicate better function/quality of life. 50th percentile is the average of the general population and indicates half of respondents had a worse score. T-scores: mean of general population = 50. 5 points is clinically meaningfully difference Percentiles provide an indication of how the patient's score ranks in relation to the general population. Higher percentile rankings indicate better function/quality of life. 50th percentile is the average of the general population and indicates half of respondents had a worse score. OBJECTIVE MEASURES WITH LEVEL OF FUNCTION: Ankle Observations R Ankle Presents with: Swelling R Swelling: Around TFL R Ankle Palpation Tenderness: Anterior talofibular ligament LE AROM R LE AROM: WNL L LE AROM: WNL LE Joint Mobility R Talocrural Joint: Hypermobile L Talocrural Joint: WNL LE Strength R Hip Extension: 5/5 R Hip Flexion (L2): 4+/5 R Hip ABduction: 4+/5 R Ankle Dorsiflexion (L4): 4+/5 R Ankle Inversion: 4+/5 R Ankle Eversion: 4+/5 Gait Gait Observation: Antalgic gait RLE. Slight increase in genu valgum of R knee vs Left. Education: Education Learning Preferences: Demonstration;Explanation;Perfor kristel;Printed Materials Barriers: None Learning/educational needs: Home exercise program;Plan of Care Education Provided: Yes, see treatment interventions for education provided Education Provided To: Patient;Caregiver Education Mode/Type: Demonstration;Explanation/Discus john;Literature/Printed Materials;Performance Response to Education/Teach Back: States/Identifies;Return Demonstration TREATMENT: PT Treatment Interventions: Therapeutic Exercise Evaluation Therapeutic Exercise: 1: Ankle circles x 10 CW/CCW 2: ABC's x 1 set 3: Ankle 3 way GTB x [address] (Did not do ankle DF) 4: Discussed therapy goals, exam findings and HEP handout provided. Discussed proper icing duration, frequency, and positiioning. Discussed continued use of the brace during work to keep pain to a minimum. Skilled Intervention: Patient was educated in proper exercise technique and purpose for exercises. Skilled judgment was provided in selection of appropriate interventions. Provided written instruction for home exercise program to facilitate proper performance and compliance. Correct performance of therapeutic exercises was facilitated with verbal and visual cuing. Billing * Evaluation Low Complexity: 1 Unit Therapeutic Exercise Treatment Minutes: 25 Total Treatment Time Minutes (timed/untimed): 45 Jeremias Brody PT documented in this encounter [facility] 04-10-2022 History of Presen t illness Narrative Radiology Service Progress Note PATIENT NAME: Franny Zacarias DATE OF SERVICE: April 10, 2022 TIME: 11:23 AM PATIENT IDENTITY VERIFICATION COMPLETED USING TWO (2) IDENTIFIERS: Name and Date of confirmed by patient verbally. FALL SCREENING: Has the patient had 2 falls in the last year or 1 fall with injury or currently using an Ambulatory Assistive Device (Walker, Cane, Wheelchair, Crutches, etc.)? No PATIENT GENDER DATA: Female. status: : No status: NO. PATIENT RELEVANT IMPLANT DATA REVIEWED: Not Applicable RADIOLOGY DEPARTMENT: General X-ray: Exam(s) Completed: Lower Extremity X-Ray(s): Ankle, Right and Wt. Bearing PERIPHERAL IV DATA: Not applicable SIGNED BY: RT Bhakti(R) April 10, 2022 11:23 AM documented in this encounter [facility] 04-10-2022 History of Presen t illness Narrative Consultation requested by Dr. Bhatia for an opinion regarding chronic ankle sprain. My final recommendations will be communicated back to the requesting physician by way of shared Medical record or letter to requesting physician via US mail. Initial Podiatric Office Visit: Chief Complaint: This 42 year old female who presents with chief complaint:right ankle sprain HPI Patient presents to clinic for evaluation of right ankle. Patient has history of right ankle sprain. First encounter was about 2 years ago when she rolled her ankle. She states that the pain eventually subsided with ankle brace and rest. Patient states that about 3 weeks ago, she twisted her right ankle and now the pain has returned. Prior to the injury three weeks ago, she recalls two other times when the ankle twisted. She continues to have pain but the pain is less than it was 3 weeks ago. She states she needs to walk with a brace because of the pain. Patient has not been referred to therapy. PAIN EVALUATION 04/10/2022 1014 Pain Level: 5 Pain Location: Ankle-Right Description: Radiating Duration Amount of Time: 3 Duration Units: Weeks Frequency: Intermittent Intervention/Comfort measure: Reposition;Relaxation;Splinting; Cold Hemoglobin A1C (%) Date Value 05/18/2021 5.3 PCP: Dayton Bhatia MD PAST MEDICAL HISTORY Diagnosis Date Other constipation Solitary cyst of breast 08/20/2001 right breast Urethral diverticulum 05/18/2021 Seeing uro Urinary urgency 05/18/2021 Current Outpatient Medications Medication Sig acetaminophen/pyrilam/pamabrom (PAMPRIN MULTI-SYMPTOM ORAL) Take by mouth. (Patient not taking: Reported on 04/10/2022) linaclotide (LINZESS) 145 mcg capsule Take 1 capsule by mouth once daily. acetaminophen/pamabrom (MIDOL ORAL) Take by mouth as directed. (Patient not taking: No sig reported) No current facility-administered medications for this visit. ALLERGIES Allergen Reactions Naproxen Hives, Swelling, Shortness of Breath Mobic [Meloxicam] Swelling, Itching PAST SURGICAL HISTORY Procedure Laterality Date COLONOSCOPY SCREENING 08/2021 FAMILY HISTORY Problem Relation Age of Onset Cancer Mother ovarian cancer w/ mets; Cervical Cancer Mother Hypertension Paternal Grandmother Hyperlipidemia Paternal Grandmother other (other) Paternal Grandmother pre-diabetes Social History Tobacco Use Smoking status: Never Smokeless tobacco: Never Vaping Use Vaping Use: Never used Substance Use Topics Alcohol use: Not Currently Comment: rare Drug use: Never REVIEW OF SYSTEMS GENERAL: Negative for Malaise, significant weight loss, fever RESPIRATORY: Negative for cough, wheezing and shortness of breath CARDIOVASCULAR: Negative for chest pain, leg swelling and palpitations GI: Negative for abdominal discomfort, blood in stools or black stools and change in bowel habits : Negative for dysuria, frequency and incontinence MUSCULOSKELETAL: + right ankle pain SKIN: Negative for lesions, rash, and itching. HEMATOLOGY/LYMPHOLOGY Negative for prolonged bleeding, bruising easily, and swollen nodes. ENDOCRINE: Negative for cold or heat intolerance, polyuria, polydipsia and goiter. NEURO: negative Physical Exam: Constitutional: Pt is a well developed 42 year old female who is alert, oriented and cooperative Eyes: Following during examination. No redness or drainage. Respiratory: RR normal and nonlabored. Even breathing. No evidence of distress or shortness of breath. Psychology: Patient is engaged during conversation. Normal affect and mood. Does not appear depressed or anxious during encounter. Vascular: Dorsalis pedis and posterior tibial pulses palpable as b/l Capillary Fill time < 5 seconds to digits 1-5 b/l Skin temperature warm to warm proximal to distal b/l Hair growth present to digits Neurological: intact light touch/epicritic sensation b/l intact protective sensation no significant neurological deficits Dermatological: Nails 1-5 b/l appear normal. Webspaces clean and dry 1-4 b/l. Skin appears well hydrated and supple. good color, texture, turgor. No open lesions present. No callosities present. Musculoskeletal/Orthopaedic: Patient has pain to palpation of right lateral ankle along anterior talofibular ligament + pain with anterior drawer of right ankle Foot type is neutral structurally AJ ROM is full with knee extended and flexed 1st MPJ is full when loaded and no pain or crepitus are noted with ROM. MTJ, STJ are full and free of pain and crepitus. +5/5 muscle strength dorsiflexion, plantarflexion, inversion, eversion b/l Radiographs: ordered ASSESSMENT: (M25.371) Ankle instability, right (primary encounter diagnosis) (S93.491A) Sprain of anterior talofibular ligament of right ankle, initial encounter PLAN: 1. History and physical examination performed. 2. Discussed past ankle sprain. Recommend continued use of ankle brace and will make referral for therapy. 3. She has ct scan from outside hospital. I will make plans to review and will have this scanned into our records but I do feel formal therapy evaluation is necessary to rehab ankle 4. If pain fails to improve, consider mri for further evaluation of ankle and I do feel that if ankle sprains continues to become a chronic condition, lateral stabilization may be necessary for her to continue Chon Tenorio DPM Podiatry [address] [facility] [id number] Dept: [phone] Dept AMB ROOMING INTAKE FLOWSHEET DATA Risk Screening Do you have concerns about personal safety or safety in the home?: No Pain Pain Level: 5 Pain Location: Ankle-Right Description: Radiating Duration Amount of Time: 3 Duration Units: Weeks Frequency: Intermittent Intervention/Comfort measure: Reposition, Relaxation, Splinting, Cold Patient presents with: Right Foot - New, Pain, sprain Flory Alberto LPN documented in this encounter [facility] 01-19-2022 Nurse Note Left message on identified VM . Let him/her know I am calling for chart update prior to virtual visit. I told them I have more questions than what is on Zoom check in. My name and number with extension left on VM for return call. Catrina Garland LPN Left message on identified VM . Let him/her know I am calling for chart update prior to virtual visit. I told them I have more questions than what is on Zoom check in. My name and number with extension left on VM for return call. Catrina Garland LPN documented in this encounter [facility] 12-07-2021 History of Presen t illness Narrative Radiology Service Progress Note PATIENT NAME: Franny Zacarias DATE OF SERVICE: December 07, 2021 TIME: 3:57 PM PATIENT IDENTITY VERIFICATION COMPLETED USING TWO (2) IDENTIFIERS: Name and Date of confirmed by patient verbally. FALL SCREENING: Has the patient had 2 falls in the last year or 1 fall with injury or currently using an Ambulatory Assistive Device (Walker, Cane, Wheelchair, Crutches, etc.)? No PATIENT GENDER DATA: Female. status: : No status: N/A PATIENT RELEVANT IMPLANT DATA REVIEWED: Not Applicable RADIOLOGY DEPARTMENT: Ultrasound PERIPHERAL IV DATA: Not applicable SIGNED BY: Lisa Vargas RDMS RVT December 07, 2021 3:57 PM documented in this encounter [facility] 12-06-2021 Miscellaneous Notes December 07, 2021 PID: [id number] Franny Zacarias [address] [place] [address] Dear Ms. Zacarias, Your prior imaging studies have arrived and been compared to your current study performed on 11/01/2021 which showed a possible finding that requires additional imaging studies for a complete evaluation. Most such findings are probably benign (not cancer). Your mammogram demonstrates that you have dense breast tissue, which could hide abnormalities. Dense breast tissue, in and of itself, is a relatively common condition. Therefore, this information is not provided to cause undue concern; rather, it is to raise your awareness and promote discussion with your health care provider regarding the presence of dense breast tissue in addition to other risk factors. If you have a healthcare provider who ordered/prescribed your screening mammogram: Please call [phone] or EXT: [phone] to schedule an appointment for your additional imaging (if you have not already done so). If you DO NOT have a healthcare provider (ie you did not have an order/prescription for your screening mammogram): Please call to schedule an appointment for your additional imaging (if you have not already done so). You must have an order/prescription from your physician when calling to schedule your appointment. If your order/prescription is not electronic, you must bring the hard copy with you on the day of your exam to avoid delays. Your imaging studies and reports are kept on file at [facility] as part of your permanent medical record, and are available for your continuing care. Thank you for allowing us to help in meeting your health care needs. Sincerely, Dr. Rosales Interpreting Radiologist [facility] (compared needs add imaging) documented in this encounter [facility] 11-28-2021 Instructions Angie Blackwell MD - 11/28/2021 4:19 PM EDT If you want the Mirena IUD placed - call with your next period. We will schedule you at that time Go to the lab to have your prolactin level drawn again when you are able. Have this drawn first thing in the morning, fasting, avoid any strenuous exercise before and breast/nipple stimulation documented in this encounter [facility] 11-28-2021 History of Presen t illness Narrative Franny Zacarias is a 41 year old female who presents for follow up. HPI: Completed Flagyl for BV with improvement in discharge but no improvement in pain. Had bleeding after intercourse. LMP 11/01/21 - bleeding was heavy to moderate and for 5-6 days. Still having pain with intercourse. Had repeat pelvic US today and blood work completed. OB History T0 L0 SAB0 IAB0 Ectopic0 Multiple0 Live Births0 Comment: menarche age 16 or 17 Drugless Doctor History LMP: 11/01/2021, Having periods Age at Menarche: Age at First : Age at Menopause: Drugless Doctor History Comments: Sexual Activity: Not Currently; Male Contraception: No contraception data on record PAST MEDICAL HISTORY Diagnosis Date Other constipation Solitary cyst of breast 08/20/2001 right breast Urethral diverticulum 05/18/2021 Seeing uro Urinary urgency 05/18/2021 PAST SURGICAL HISTORY Procedure Laterality Date COLONOSCOPY SCREENING 08/2021 FAMILY HISTORY Problem Relation Age of Onset Cancer Mother ovarian cancer w/ mets; Cervical Cancer Mother Hypertension Paternal Grandmother Hyperlipidemia Paternal Grandmother other (other) Paternal Grandmother pre-diabetes Social History Tobacco Use Smoking status: Never Smoker Smokeless tobacco: Never Used Vaping Use Vaping Use: Never used Substance Use Topics Alcohol use: Not Currently Comment: rare Drug use: Never Current Outpatient Medications Medication Sig acetaminophen/pyrilam/pamabrom (PAMPRIN MULTI-SYMPTOM ORAL) Take by mouth. linaclotide (LINZESS) 145 mcg capsule Take 1 capsule by mouth once daily. acetaminophen/pamabrom (MIDOL ORAL) Take by mouth as directed. (Patient not taking: Reported on 11/04/2021 ) No current facility-administered medications for this visit. Allergies As of Date: 11/28/2021 (No Known Allergies) Fully Assessed 11/28/2021 REVIEW OF SYSTEMS Expanded ROS: See HPI. Allergies and current medication updated:Yes EXAM: BP 100/64 Wt 128 lb (58.1kg) LMP 11/01/2021 GENERAL: pleasant female in no apparent distress HEENT: Normocephalic, atraumatic, mucus membranes moist and no lesions NECK: full range of motion DERMATOLOGY: Normal, without lesions, non-icteric and non-hirsute CHEST: Normal inspiratory effort NEURO: exam grossly non-focal EXTREMITIES: normal ASSESSMENT AND PLAN: Encounter Diagnosis ICD-10-CM 1. Pelvic pain in female R10.2 INSERT INTRAUTERINE DEVICE 2. Deep dyspareunia N94.12 3. Adenomyosis N80.0 INSERT INTRAUTERINE DEVICE 4. Uterine leiomyoma, unspecified location D25.9 INSERT INTRAUTERINE DEVICE 5. DUB (dysfunctional uterine bleeding) N93.8 ENDOMETRIAL BIOPSY INSERT INTRAUTERINE DEVICE Component Latest Ref Rng & Units 11/04/2021 FSH See comment mIU/mL 3.3 Estradiol 17B pg/mL 1,300 Prolactin 4.5 - 26.8 ng/mL 37.0 (H) Impression A anteverted uterus that measures 75 mm x 48 mm x 47 mm. The myometrium is suspicious of adenomyosis. In addition, 1 fibroid is observed and are described below. The fibroid appears intramural. Fibroid(s): Size 37 mm x 32 mm x 35 mm. Mean 34.7 mm. Vol 21.698 cm . Fundal The central endometrium complex measures 4.2 mm in combined thickness and there is a small amount of fluid present within the cavity. No abnormal blood flow to suggest a polyp or focal endometrial pathology is observed within the endometrial complex. The contour of the endometrial cavity was normal on 3-D imaging. Both ovaries are visualized and appear normal. No adnexal masses were observed. There is no free fluid visualized in the peritoneal cavity. Positive slide sign of adnexa and posterior CDS. Reviewed blood work and ultrasound findings with patient. Recommend repeat prolactin level, EMB, and Mirena IUD. To call with start of menses to schedule. Will want to wait for results of breast imaging prior to using any hormonal contraception. She understands the IUD is contraception. Recommend genetic counseling and pelvic floor PT as well. To continue to follow with urology. Angie Blackwell DO Medical Decision Making: Problems: Moderate: 2+ stable chronic illnesses Risk: Low: Low risk from testing/treatment Medical Decision Making Level: 3 - Low documented in this encounter [facility] 11-18-2021 Miscellaneous Notes Pelvic Ultrasound scheduled, patient aware. Stormy Hough RN Yes she is supposed to have an US before - order was previously placed thanks Patient does not have an upcoming ultrasound appointment scheduled. Do you want her to have this done the same day she sees you for a follow-up on 11/28/21? Elizabeth Calderón RN Noted thanks. Sorry this is concerning - she has a schedule US and follow up with me after recommend keeping Patient notified. She is concerned because three weeks ago she began having light spotting. Happening everyday. Will be on her toilet tissue only. Denies pain, but having some cramping. Light red to pink in color. This is concerning for the patient. Elizabeth Calderón RN ----- Message from Angie Blackwell MD sent at 11/17/2021 8:36 AM EDT ----- Please call pt and notify her of minimally elevated prolactin level. Will place order to have it repeated prior to her follow up appointment. To have it drawn first thing in the morning. To avoid strenuous exercise and nipple stimulation prior to lab drawn documented in this encounter [facility] 11-17-2021 Miscellaneous Notes See result noted - repeat prolactin ordered documented in this encounter [facility] 11-08-2021 Miscellaneous Notes Left message for patient to call office. Elizabeth Calderón RN BV positive. To treat with Flagyl 500mg PO BID for 7 days. 1) No alcohol during treatment and for 24 hours after last dose. 2) No intercourse during treatment. 3) Probiotic by mouth once daily for 30 days or as needed. Mary Ann Quiroz APRN.CNP documented in this encounter [facility] 05-18-2021 History of Presen t illness Narrative Radiology Service Progress Note PATIENT NAME: Franny Zacarias DATE OF SERVICE: May 18, 2021 TIME: 1:38 PM PATIENT IDENTITY VERIFICATION COMPLETED USING TWO (2) IDENTIFIERS: Name and Date of confirmed by patient verbally. FALL SCREENING: Has the patient had 2 falls in the last year or 1 fall with injury or currently using an Ambulatory Assistive Device (Walker, Cane, Wheelchair, Crutches, etc.)? No PATIENT GENDER DATA: Female. status: : No status: NO. PATIENT RELEVANT IMPLANT DATA REVIEWED: Not Applicable RADIOLOGY DEPARTMENT: General X-ray: Exam(s) Completed: Abdomen X-Ray: Abdomen PERIPHERAL IV DATA: Not applicable SIGNED BY: RT Malika(R) May 18, 2021 1:38 PM documented in this encounter [facility] Evaluation note Diagnosis Elevated prolactin level- Primary Unspecified endocrine disorder DUB (dysfunctional uterine bleeding) Other disorder of menstruation and other abnormal bleeding from female genital tract [facility] Diagnosis Pelvic pain in female- Primary Unspecified symptom associated with female genital organs [facility] Diagnosis Pelvic pain in female- Primary Unspecified symptom associated with female genital organs Deep dyspareunia Adenomyosis Endometriosis of uterus Uterine leiomyoma, unspecified location DUB (dysfunctional uterine bleeding) Other disorder of menstruation and other abnormal bleeding from female genital tract [facility] Diagnosis Abnormal mammogram- Primary Abnormal mammogram, unspecified [facility] Diagnosis Abnormal mammogram Abnormal mammogram, unspecified [facility] Diagnosis APPOINTMENT CANCELLED- Primary [facility] Diagnosis Ankle instability, right- Primary Sprain of anterior talofibular ligament of right ankle, initial encounter [facility] Diagnosis Ankle instability, right Sprain of anterior talofibular ligament of right ankle, initial encounter [facility] Diagnosis Ankle instability, right Sprain of anterior talofibular ligament of right ankle, initial encounter [facility] Diagnosis Ankle instability, right- Primary Sprain of anterior talofibular ligament of right ankle, initial encounter [facility] Diagnosis Ankle instability, right- Primary Sprain of anterior talofibular ligament of right ankle, initial encounter [facility] noteNo assessment information availableWRegency Hospital [facility] Work Phone: Evaluation note* Diagnosis Encounter for gynecological examination (general) (routine) without abnormal findings- Primary Encounter for screening mammogram for breast cancer Unintended weight gain Abnormal weight gain Secondary amenorrhea Absence of menstruation BV (bacterial vaginosis) Vaginitis and vulvovaginitis, unspecified Microscopic hematuria Family history of ovarian cancer Family history of malignant neoplasm of ovary Pelvic pain in female Unspecified symptom associated with female genital organs Malaise and fatigue Other malaise and fatigue [facility] Diagnosis BV (bacterial vaginosis)- Primary Vaginitis and vulvovaginitis, unspecified [facility] Diagnosis Positive TB test- Primary Nonspecific reaction to tuberculin skin test without active tuberculosis [facility] Diagnosis Need for vaccination- Primary Need for prophylactic vaccination and inoculation against unspecified single disease [facility] Diagnosis Routine adult health maintenance- Primary Routine general medical examination at a health care facility [facility] Diagnosis Need for vaccination- Primary Need for prophylactic vaccination and inoculation against unspecified single disease Need for influenza vaccination Need for prophylactic vaccination and inoculation against influenza [facility] Diagnosis TB lung, latent Unspecified pulmonary tuberculosis, confirmation unspecified [facility] Diagnosis Need for vaccination- Primary Need for prophylactic vaccination and inoculation against unspecified single disease [facility] Diagnosis Weight gain- Primary Abnormal weight gain Encounter for screening for diabetes mellitus Screening for diabetes mellitus Encounter for lipid screening for cardiovascular disease Screening for lipoid disorders TB lung, latent Unspecified pulmonary tuberculosis, confirmation unspecified Need for vaccination Need for prophylactic vaccination and inoculation against unspecified single disease [facility] Diagnosis Encounter for screening mammogram for breast cancer documented in this encounter [facility] Diagnosis TB lung, latent- Primary Unspecified pulmonary tuberculosis, confirmation unspecified TB lung, latent Unspecified pulmonary tuberculosis, confirmation unspecified documented in this [facility] Diagnosis TB lung, latent Unspecified pulmonary tuberculosis, confirmation unspecified [facility] Diagnosis Encounter for screening mammogram for breast cancer documented in this encounter [facility] Diagnosis Other constipation documented in this encounter [facility] Diagnosis Postmenopausal bleeding- Primary Screening for HPV (human papillomavirus) Special screening examination for human papillomavirus (HPV) Screening for cervical cancer Screening for malignant neoplasm of the cervix Vulvar cyst Other specified noninflammatory disorder of vulva and perineum [facility] Diagnosis Postmenopausal bleeding- Primary Fibroids, submucosal Submucous leiomyoma of uterus Paratubal cyst Other noninflammatory disorder of ovary, fallopian tube, and broad ligament [facility] Diagnosis Postmenopausal bleeding- Primary documented in this encounter [facility] note* Diagnosis Encounter for immunization- Primary Need for other specified prophylactic vaccination against single bacterial disease documented in this encounter [facility] note* Diagnosis Postmenopausal bleeding- Primary documented in this encounter [facility] note* Diagnosis PMB (postmenopausal bleeding)- Primary Postmenopausal bleeding Family history of ovarian cancer Family history of malignant neoplasm of ovary Submucous leiomyoma of uterus Hematuria, unspecified type documented in this encounter [facility] note* Diagnosis Preop examination- Primary Preoperative examination, unspecified Fibroids, submucosal Submucous leiomyoma of uterus Abnormal vaginal bleeding Other specified noninflammatory disorder of vagina Elevated glucose Other abnormal glucose Weight gain Abnormal weight gain TB lung, latent Unspecified pulmonary tuberculosis, confirmation unspecified Fatigue, unspecified type Screening for diabetes mellitus Encounter for lipid screening for cardiovascular disease Screening for lipoid disorders Encounter for screening examination for other mental health and behavioral disorders Encounter for screening mammogram for breast cancer Screening for depression TB lung, latent Unspecified pulmonary tuberculosis, confirmation unspecified documented in this encounter [facility] note* Diagnosis TB lung, latent Unspecified pulmonary tuberculosis, confirmation unspecified documented in this encounter [facility] note* Diagnosis Preop examination- Primary Preoperative examination, unspecified Fibroids, submucosal Submucous leiomyoma of uterus Abnormal vaginal bleeding Other specified noninflammatory disorder of vagina Latent tuberculosis infection Nonspecific reaction to tuberculin skin test without active tuberculosis Local reaction to insect sting, accidental or unintentional, initial encounter documented in this encounter [facility] Discharge instructions Additional Instructions Use sling as needed, follow-up with the orthopedic provider I referred you to. Return for any worsening of symptoms.[facility] Work Phone: Reason for referral (narrative)* Outpatient Procedure (Routine) - Pending Review Specialty Diagnoses / Procedures Referred By Kurt kauffman Referred To Contact [facility] Diagnoses Pelvic pain in female Adenomyosis Uterine leiomyoma, unspecified location DUB (dysfunctional uterine bleeding) Procedures INSERT INTRAUTERINE DEVICE LEVONORGESTREL IU 52MG 5 YR INSERT INTRAUTERINE DEVICE Angie Blackwell MD [address] [place] [address] [facility] [address] [place] [address] Referral ID Status Reason Start Date Expiration Date Visits Requested Visits Authorized [id number] Pending Review Auto-Generat ed Referral 11/28/2021 11/28/2022 1 1 * Outpatient Procedure (Routine) - Pending Review Specialty Diagnoses / Procedures Referred By Kurt kauffman Referred To Contact [facility] Diagnoses DUB (dysfunctional uterine bleeding) Procedures ENDOMETRIAL BIOPSY ENDOMETRIAL BX W/WO ENDOCERVIX BX W/O DILAT SPX Angie Blackwell MD [address] [place] [address] [facility] [address] [place] [address] Referral ID Status Reason Start Date Expiration Date Visits Requested Visits Authorized [id number] Pending Review Auto-Generat ed Referral 11/28/2021 11/28/2022 1 1 [facility] for referral (narrative)* Diagnostic Procedure Only (Routine) - Closed Specialty Diagnoses / Procedures Referred By Kurt kauffman Referred To Contact [facility] Diagnoses Abnormal mammogram Procedures US BREAST LTD LT US BREAST UNI REAL TIME WITH IMAGE LIMITED Angie Blackwell MD [address] [place] [address] [facility] [address] [place] [address] Referral ID Status Reason Start Date Expiration Date V isits Requested Visits Authorized [id number] Closed Auto-Generate d Referral 11/04/2021 12/04/2022 1 1 [facility] for referral (narrative)* Diagnostic Procedure Only (Routine) - Closed Specialty Diagnoses / Procedures Referred By Kurt kauffman Referred To Contact [facility] Diagnoses Ankle instability, right Sprain of anterior talofibular ligament of right ankle, initial encounter Procedures XR ANKLE GENERAL 3V AP/LAT/OBL RIGHT RADEX ANKLE COMPLETE MINIMUM 3 VIEWS Chon Tenorio [address] [place] [address] [facility] Referral ID Status Reason Start Date Expiration Date V isits Requested Visits Authorized [id number] Closed Auto-Generate d Referral 04/10/2022 05/10/2023 1 1 [facility] for referral (narrative)* Diagnostic Procedure Only (Routine) - Pending Review Specialty Diagnoses / Procedures Referred By Contac t Referred To Contact [facility] Diagnoses Pelvic pain in female Procedures US FEMALE PELVIS TRANSVAG US TRANSVAGINAL Angie Blackwell MD [address] [place] [address] [facility] Referral ID Status Reason Start Date Expiration Date Visits Requested Visits Authorized [id number] Pending Review Auto-Generat ed Referral 02/09/2023 03/10/2024 1 1 * Diagnostic Procedure Only (Routine) - Pending Review Specialty Diagnoses / Procedures Referred By Kurt t Referred To Contact [facility] Diagnoses Pelvic pain in female Procedures PELVIC US WHI US PELVIC NONOBSTETRIC REAL-TIME IMAGE COMPLETE Angie Blackwell MD [address] [place] [address] [address] Referral ID Status Reason Start Date Expiration Date Visits Requested Visits Authorized [id number] Pending Review Auto-Generat ed Referral 02/09/2023 02/09/2024 1 1 * Consult, Test, Treat (Routine) - Authorized Specialty Diagnoses / Procedures Referred By Kurt t Referred To Contact Diagnoses Family history of ovarian cancer Procedures CONSULT TO MEDICAL GENETICS - CANCER MEDICAL GENETICS COUNSELING EACH 30 MINUTES Angie Blackwell MD [address] [facility] [address] [address] Referral ID Status Reason Start Date Expiration Date Visits Requested Visits Authorized [id number] Authorized PCP Requested Referral Auto-Generate d Referral 02/09/2023 02/09/2024 1 1 * Diagnostic Procedure Only (Routine) - Pending Review Specialty Diagnoses / Procedures Referred By Kurt t Referred To Contact [facility] Diagnoses Encounter for screening mammogram for breast cancer Procedures GENEVA SCREENING SCREENING MAMMOGRAPHY BI 2-VIEW BREAST INC CAD Angie Blackwell MD [address] [place] [address] [facility] [address] [place] [address] Referral ID Status Reason Start Date Expiration Date Visits Requested Visits Authorized [id number] Pending Review Auto-Generat ed Referral 02/09/2023 03/10/2024 1 1 [facility] for referral (narrative)* Diagnostic Procedure Only (Routine) - Pending Review Specialty Diagnoses / Procedures Referred By Kurt t Referred To Contact [facility] Diagnoses Encounter for screening mammogram for breast cancer Procedures GENEVA SCREENING W ALBAN SCREENING DIGITAL BREAST TOMOSYNTHESIS BI SCREENING MAMMOGRAPHY BI 2-VIEW BREAST INC CAD Dayton Bhatia MD [address] [place] [address] [facility] [address] [place] [address] Referral ID Status Reason Start Date Expiration Date Visits Requested Visits Authorized [id number] Pending Review Auto-Generat ed Referral 01/16/2024 02/14/2025 1 1 [facility] for referral (narrative)* Diagnostic Procedure Only (Routine) - Closed Specialty Diagnoses / Procedures Referred By Kurt t Referred To Contact [facility] Diagnoses Encounter for screening mammogram for breast cancer Procedures GENEVA SCREENING W ALBAN SCREENING DIGITAL BREAST TOMOSYNTHESIS BI SCREENING MAMMOGRAPHY BI 2-VIEW BREAST INC CAD Dayton Bhatia MD [address] [place] [address] [facility] [address] [place] [address] Referral ID Status Reason Start Date Expiration Date V isits Requested Visits Authorized [id number] Closed Auto-Generate d Referral 01/16/2024 02/14/2025 1 1 [facility] for referral (narrative)* Diagnostic Procedure Only (Routine) - Closed Specialty Diagnoses / Procedures Referred By Contac t Referred To Contact [facility] Diagnoses Other constipation Procedures XR ABDOMEN 1V SUPINE RADIOLOGIC EXAM ABDOMEN 1 VIEW Dana Mcdowell PA-C [address] [place] [address] [place] [id number] Referral ID Status Reason Start Date Expiration Date V isits Requested Visits Authorized [id number] Closed Auto-Generate d Referral 05/18/2021 06/17/2022 1 1 [facility] for referral (narrative)* Diagnostic Procedure Only (Routine) - Authorized Specialty Diagnoses / Procedures Referred By Contac t Referred To Contact [facility] Diagnoses Postmenopausal bleeding Procedures PELVIC US WHI US PELVIC NONOBSTETRIC REAL-TIME IMAGE COMPLETE Vita Wahl APRN.CNP [address] [place] [address] [facility] [address] [place] [address] Referral ID Status Reason Start Date Expiration Date Visits Requested Visits Authorized [id number] Authorized Auto-Generat ed Referral 07/31/2025 1 1 [facility] for referral (narrative)* Outpatient Procedure (Routine) - New Request Specialty Diagnoses / Procedures Referred By Contac t Referred To Contact [facility] Diagnoses Postmenopausal bleeding Procedures ENDOMETRIAL BIOPSY ENDOMETRIAL BX W/WO ENDOCERVIX BX W/O DILAT SPX Vita Wahl APRN.CNP [address] [place] [address] [facility] [address] [place] [address] Referral ID Status Reason Start Date Expiration Date Visits Requested Visits Authorized [id number] New Request Auto-Generat ed Referral 08/08/2025 1 1 [facility] for referral (narrative)No reason for referral information available[facility] Work Phone: Reason for visit Narrative* Diagnostic Procedure Only (Routine) - Closed Specialty Diagnoses / Procedures Referred By Kurt t Referred To Contact [facility] Diagnoses Ankle instability, right Sprain of anterior talofibular ligament of right ankle, initial encounter Procedures XR ANKLE GENERAL 3V AP/LAT/OBL RIGHT RADEX ANKLE COMPLETE MINIMUM 3 VIEWS Chon Tenorio [address] [place] [address] [facility] Referral ID Status Reason Start Date Expiration Date V isits Requested Visits Authorized [id number] Closed Auto-Generate d Referral 04/10/2022 05/10/2023 1 1 [facility] for visit Narrative* Diagnostic Procedure Only (Routine) - Closed Specialty Diagnoses / Procedures Referred By Kurt kauffman Referred To Contact [facility] Diagnoses Encounter for screening mammogram for breast cancer Procedures GENEVA SCREENING W ALBAN SCREENING DIGITAL BREAST TOMOSYNTHESIS BI SCREENING MAMMOGRAPHY BI 2-VIEW BREAST INC CAD Dayton Bhatia MD [address] [place] [address] [facility] [address] [place] [address] Referral ID Status Reason Start Date Expiration Date V isits Requested Visits Authorized [id number] Closed Auto-Generate d Referral 01/16/2024 02/14/2025 1 1 [facility] for visit Narrative* Diagnostic Procedure Only (Routine) - Closed Specialty Diagnoses / Procedures Referred By Kurt t Referred To Contact [facility] Diagnoses Other constipation Procedures XR ABDOMEN 1V SUPINE RADIOLOGIC EXAM ABDOMEN 1 VIEW Dana Mcdowell PA-C [address] [place] [address] X[id number] Referral ID Status Reason Start Date Expiration Date V isits Requested Visits Authorized [id number] Closed Auto-Generate d Referral 05/18/2021 06/17/[address] [facility] N[facility]* Diagnostic Procedure Only (Routine) - Closed Specialty Diagnoses / Procedures Referred By Kurt kauffman Referred To Contact [facility] Diagnoses Postmenopausal bleeding Procedures PELVIC US WHI US PELVIC NONOBSTETRIC REAL-TIME IMAGE COMPLETE Vita Wahl APRN.MINISTER ASSISTANT [address] [place] [id number] [address] [address] Referral ID Status Reason Start Date Expiration Date V isits Requested Visits Authorized [id number] Closed Auto-Generate d Referral 07/31/2024 07/31/[address] 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 [address] [place] [address] Referral ID Status Reason Start Date Expiration Date Visits Requested Visits Authorized [id number] Pending Review Auto-Generat ed Referral 04/10/2022 04/10/2023 1 1 Specialty Diagnoses / Procedures Referred By Kurt t Referred To Contact [facility] Diagnoses Ankle instability, right Sprain of anterior talofibular ligament of right ankle, initial encounter Procedures XR ANKLE GENERAL 3V AP/LAT/OBL RIGHT RADEX ANKLE COMPLETE MINIMUM [address] [place] [address] Xr Imaging Referral ID Status Reason Start Date Expiration Date V isits Requested Visits Authorized [id number] Closed Auto-Generate d Referral 04/10/2022 05/10/2023 1 1 Referral ID Status Reason Start Date Expiration Date Visits Requested Visits Authorized [id number] Pending Review Auto-Generat ed Referral 07/24/2022 07/24/2023 1 1 Specialty Diagnoses / Procedures Referred By Contac t Referred To Contact Infectious Diseases Diagnoses TB lung, latent Procedures CONSULT TO INFECTIOUS DISEASES OFFICE/OUTPATIENT NEW HIGH MDM 60-74 MINUTES Dayton Bhatia MD [address] [place] [address] Referral ID Status Reason Start Date Expiration Date Visits Requested Visits Authorized [id number] Authorized PCP Requested Referral 3 06/12/2024 1 1 Chief Complaint and Reason for Visit 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 the event this information is protected by the Federal Confidentiality of Alcohol and Drug Abuse Patient Records regulations: The Federal rules restrict any use of the information to criminally investigate or prosecute any alcohol or drug abuse patient.[facility] the event this information is protected by the Federal Confidentiality of Alcohol and Drug Abuse Patient Records regulations: The Federal rules restrict any use of the information to criminally investigate or prosecute any alcohol or drug abuse patient.[facility] the event this information is protected by the Federal Confidentiality of Alcohol and Drug Abuse Patient Records regulations: The Federal rules restrict any use of the information to criminally investigate or prosecute any alcohol or drug abuse patient.[facility] the event this information is protected by the Federal Confidentiality of Alcohol and Drug Abuse Patient Records regulations: The Federal rules restrict any use of the information to criminally investigate or prosecute any alcohol or drug abuse patient.[facility] the event this information is protected by the Federal Confidentiality of Alcohol and Drug Abuse Patient Records regulations: The Federal rules restrict any use of the information to criminally investigate or prosecute any alcohol or drug abuse patient.[facility] the event this information is protected by the Federal Confidentiality of Alcohol and Drug Abuse Patient Records regulations: The Federal rules restrict any use of the information to criminally investigate or prosecute any alcohol or drug abuse patient.[facility] the event this information is protected by the Federal Confidentiality of Alcohol and Drug Abuse Patient Records regulations: The Federal rules restrict any use of the information to criminally investigate or prosecute any alcohol or drug abuse patient.[facility] the event this information is protected by the Federal Confidentiality of Alcohol and Drug Abuse Patient Records regulations: The Federal rules restrict any use of the information to criminally investigate or prosecute any alcohol or drug abuse patient.[facility] the event this information is protected by the Federal Confidentiality of Alcohol and Drug Abuse Patient Records regulations: The Federal rules restrict any use of the information to criminally investigate or prosecute any alcohol or drug abuse patient.[facility] the event this information is protected by the Federal Confidentiality of Alcohol and Drug Abuse Patient Records regulations: The Federal rules restrict any use of the information to criminally investigate or prosecute any alcohol or drug abuse patient.[facility] the event this information is protected by the Federal Confidentiality of Alcohol and Drug Abuse Patient Records regulations: The Federal rules restrict any use of the information to criminally investigate or prosecute any alcohol or drug abuse patient.[facility] the event this information is protected by the Federal Confidentiality of Alcohol and Drug Abuse Patient Records regulations: The Federal rules restrict any use of the information to criminally investigate or prosecute any alcohol or drug abuse patient.[facility] the event this information is protected by the Federal Confidentiality of Alcohol and Drug Abuse Patient Records regulations: The Federal rules restrict any use of the information to criminally investigate or prosecute any alcohol or drug abuse patient.[facility] the event this information is protected by the Federal Confidentiality of Alcohol and Drug Abuse Patient Records regulations: The Federal rules restrict any use of the information to criminally investigate or prosecute any alcohol or drug abuse patient.[facility] the event this information is protected by the Federal Confidentiality of Alcohol and Drug Abuse Patient Records regulations: The Federal rules restrict any use of the information to criminally investigate or prosecute any alcohol or drug abuse patient.[facility] the event this information is protected by the Federal Confidentiality of Alcohol and Drug Abuse Patient Records regulations: The Federal rules restrict any use of the information to criminally investigate or prosecute any alcohol or drug abuse patient.[facility] the event this information is protected by the Federal Confidentiality of Alcohol and Drug Abuse Patient Records regulations: The Federal rules restrict any use of the information to criminally investigate or prosecute any alcohol or drug abuse patient.[facility] the event this information is protected by the Federal Confidentiality of Alcohol and Drug Abuse Patient Records regulations: The Federal rules restrict any use of the information to criminally investigate or prosecute any alcohol or drug abuse patient.[facility] the event this information is protected by the Federal Confidentiality of Alcohol and Drug Abuse Patient Records regulations: The Federal rules restrict any use of the information to criminally investigate or prosecute any alcohol or drug abuse patient.[facility] the event this information is protected by the Federal Confidentiality of Alcohol and Drug Abuse Patient Records regulations: The Federal rules restrict any use of the information to criminally investigate or prosecute any alcohol or drug abuse patient.[facility] the event this information is protected by the Federal Confidentiality of Alcohol and Drug Abuse Patient Records regulations: The Federal rules restrict any use of the information to criminally investigate or prosecute any alcohol or drug abuse patient.[facility] the event this information is protected by the Federal Confidentiality of Alcohol and Drug Abuse Patient Records regulations: The Federal rules restrict any use of the information to criminally investigate or prosecute any alcohol or drug abuse patient.[facility] the event this information is protected by the Federal Confidentiality of Alcohol and Drug Abuse Patient Records regulations: The Federal rules restrict any use of the information to criminally investigate or prosecute any alcohol or drug abuse patient.[facility] the event this information is protected by the Federal Confidentiality of Alcohol and Drug Abuse Patient Records regulations: The Federal rules restrict any use of the information to criminally investigate or prosecute any alcohol or drug abuse patient.[facility] the event this information is protected by the Federal Confidentiality of Alcohol and Drug Abuse Patient Records regulations: The Federal rules restrict any use of the information to criminally investigate or prosecute any alcohol or drug abuse patient.[facility] the event this information is protected by the Federal Confidentiality of Alcohol and Drug Abuse Patient Records regulations: The Federal rules restrict any use of the information to criminally investigate or prosecute any alcohol or drug abuse patient.[facility] the event this information is protected by the Federal Confidentiality of Alcohol and Drug Abuse Patient Records regulations: The Federal rules restrict any use of the information to criminally investigate or prosecute any alcohol or drug abuse patient.St. [facility] CampusIn the event this information is protected by the Federal Confidentiality of Alcohol and Drug Abuse Patient Records regulations: The Federal rules restrict any use of the information to criminally investigate or prosecute any alcohol or drug abuse patient.[facility] CampusIn the event this information is protected by the Federal Confidentiality of Alcohol and Drug Abuse Patient Records regulations: The Federal rules restrict any use of the information to criminally investigate or prosecute any alcohol or drug abuse patient.[facility] CampusIn the event this information is protected by the Federal Confidentiality of Alcohol and Drug Abuse Patient Records regulations: The Federal rules restrict any use of the information to criminally investigate or prosecute any alcohol or drug abuse patient.[facility] CampusIn the event this information is protected by the Federal Confidentiality of Alcohol and Drug Abuse Patient Records regulations: The Federal rules restrict any use of the information to criminally investigate or prosecute any alcohol or drug abuse patient.[facility] CampusIn the event this information is protected by the Federal Confidentiality of Alcohol and Drug Abuse Patient Records regulations: The Federal rules restrict any use of the information to criminally investigate or prosecute any alcohol or drug abuse patient.[facility] CampusIn the event this information is protected by the Federal Confidentiality of Alcohol and Drug Abuse Patient Records regulations: The Federal rules restrict any use of the information to criminally investigate or prosecute any alcohol or drug abuse patient.[facility] CampusIn the event this information is protected by the Federal Confidentiality of Alcohol and Drug Abuse Patient Records regulations: The Federal rules restrict any use of the information to criminally investigate or prosecute any alcohol or drug abuse patient.[facility] [place] CampusIn the event this information is protected by the Federal Confidentiality of Alcohol and Drug Abuse Patient Records regulations: The Federal rules restrict any use of the information to criminally investigate or prosecute any alcohol or drug abuse patient.[facility] [place] CampusIn the event this information is protected by the Federal Confidentiality of Alcohol and Drug Abuse Patient Records regulations: The Federal rules restrict any use of the information to criminally investigate or prosecute any alcohol or drug abuse patient.[facility] [place] CampusIn the event this information is protected by the Federal Confidentiality of Alcohol and Drug Abuse Patient Records regulations: The Federal rules restrict any use of the information to criminally investigate or prosecute any alcohol or drug abuse patient.[facility] [place] CampusIn the event this information is protected by the Federal Confidentiality of Alcohol and Drug Abuse Patient Records regulations: The Federal rules restrict any use of the information to criminally investigate or prosecute any alcohol or drug abuse patient.[facility] [place] CampusIn the event this information is protected by the Federal Confidentiality of Alcohol and Drug Abuse Patient Records regulations: The Federal rules restrict any use of the information to criminally investigate or prosecute any alcohol or drug abuse patient.[facility] [place] CampusIn the event this information is protected by the Federal Confidentiality of Alcohol and Drug Abuse Patient Records regulations: The Federal rules restrict any use of the information to criminally investigate or prosecute any alcohol or drug abuse patient.[facility] [place] CampusIn the event this information is protected by the Federal Confidentiality of Alcohol and Drug Abuse Patient Records regulations: The Federal rules restrict any use of the information to criminally investigate or prosecute any alcohol or drug abuse patient.[facility] [place] CampusIn the event this information is protected by the Federal Confidentiality of Alcohol and Drug Abuse Patient Records regulations: The Federal rules restrict any use of the information to criminally investigate or prosecute any alcohol or drug abuse patient.[facility] [place] CampusIn the event this information is protected by the Federal Confidentiality of Alcohol and Drug Abuse Patient Records regulations: The Federal rules restrict any use of the information to criminally investigate or prosecute any alcohol or drug abuse patient.[facility] [place] CampusIn the event this information is protected by the Federal Confidentiality of Alcohol and Drug Abuse Patient Records regulations: The Federal rules restrict any use of the information to criminally investigate or prosecute any alcohol or drug abuse patient.[facility] [place] CampusIn the event this information is protected by the Federal Confidentiality of Alcohol and Drug Abuse Patient Records regulations: The Federal rules restrict any use of the information to criminally investigate or prosecute any alcohol or drug abuse patient.[facility] [place] CampusIn the event this information is protected by the Federal Confidentiality of Alcohol and Drug Abuse Patient Records regulations: The Federal rules restrict any use of the information to criminally investigate or prosecute any alcohol or drug abuse patient.[facility] [place] CampusIn the event this information is protected by the Federal Confidentiality of Alcohol and Drug Abuse Patient Records regulations: The Federal rules restrict any use of the information to criminally investigate or prosecute any alcohol or drug abuse patient.[facility] [place] CampusIn the event this information is protected by the Federal Confidentiality of Alcohol and Drug Abuse Patient Records regulations: The Federal rules restrict any use of the information to criminally investigate or prosecute any alcohol or drug abuse patient.[facility] [place] CampusIn the event this information is protected by the Federal Confidentiality of Alcohol and Drug Abuse Patient Records regulations: The Federal rules restrict any use of the information to criminally investigate or prosecute any alcohol or drug abuse patient.[facility] [place] CampusIn the event this information is protected by the Federal Confidentiality of Alcohol and Drug Abuse Patient Records regulations: The Federal rules restrict any use of the information to criminally investigate or prosecute any alcohol or drug abuse patient.[facility] [place] CampusIn the event this information is protected by the Federal Confidentiality of Alcohol and Drug Abuse Patient Records regulations: The Federal rules restrict any use of the information to criminally investigate or prosecute any alcohol or drug abuse patient.[facility] [place] CampusIn the event this information is protected by the Federal Confidentiality of Alcohol and Drug Abuse Patient Records regulations: The Federal rules restrict any use of the information to criminally investigate or prosecute any alcohol or drug abuse patient.[facility] [place] CampusIn the event this information is protected by the Federal Confidentiality of Alcohol and Drug Abuse Patient Records regulations: The Federal rules restrict any use of the information to criminally investigate or prosecute any alcohol or drug abuse patient.[facility] [place] CampusIn the event this information is protected by the Federal Confidentiality of Alcohol and Drug Abuse Patient Records regulations: The Federal rules restrict any use of the information to criminally investigate or prosecute any alcohol or drug abuse patient.[facility] [place] CampusIn the event this information is protected by the Federal Confidentiality of Alcohol and Drug Abuse Patient Records regulations: The Federal rules restrict any use of the information to criminally investigate or prosecute any alcohol or drug abuse patient.[facility] [place] CampusIn the event this information is protected by the Federal Confidentiality of Alcohol and Drug Abuse Patient Records regulations: The Federal rules restrict any use of the information to criminally investigate or prosecute any alcohol or drug abuse patient.[facility] [place] CampusIn the event this information is protected by the Federal Confidentiality of Alcohol and Drug Abuse Patient Records regulations: The Federal rules restrict any use of the information to criminally investigate or prosecute any alcohol or drug abuse patient.[facility] [place] [facility] Reason for Visit (unrecogniz ed section and content) Reason Comments PT Progress Note Specialty Diagnoses / Procedures Referred By Kurt kauffman Referred To Contact [facility] Diagnoses Ankle instability, right Sprain of anterior talofibular ligament of right ankle, initial encounter Procedures CONSULT TO PHYSICAL THERAPY PHYSICAL THERAPY EVALUATION HIGH COMPLEX 45 MINS Chon Tenorio [address] [place] [address] [facility] [place] [address] [place] [address] Referral ID Status Reason Start Date Expiration Date Visits Requested Visits Authorized [id number] Authorized Auto-Generat ed Referral 08/20/2021 08/19/2022 30 30 Reason Comments Orders Reason Comments Results Reason Comments Pelvic Pain Reason Comments Opened In Error Reason Comments Radiology US Specialty Diagnoses / Procedures Referred By Kurt kauffman Referred To Contact [facility] Diagnoses Abnormal mammogram Procedures US BREAST LTD RT US BREAST UNI REAL TIME WITH IMAGE LIMITED Angie Blackwell MD [address] [place] [address] [facility] [address] [place] [address] Referral ID Status Reason Start Date Expiration Date V isits Requested Visits Authorized [id number] Closed Auto-Generate d Referral 11/04/2021 12/04/2022 1 1 Reason Comments New Patient Reason Comments New Pain sprain Reason Comments PT Eval Reason Comments Established Patient Follow Up Pain Reason Comments images Reason Comments Well Woman Reason Comments Appointment Reason Comments Medication Problem TB read positivePt c tia in today to have TB read and the spot came back red,warm to the touch,raised Reason Onset Date Comments Imm/Inj Immunizations 06/14/2023 Flu vaccination Reason Comments Patient Question Reason Comments Letter Reason Comments Imm/Inj Reason Comments Follow Up No menses in over 12 months. Hormonal changes. Weight gain. Mood swings. Hot flashes. Reason Comments Patient Question Reason Comments Infection Follow Up Reason Comments Immunizations Hepatitis B Vaccines Reason Comments Menstrual Problem Reason Comments Results Reason Comments Endometrial Biopsy Specialty Diagnoses / Procedures Referred By Contac t Referred To Contact [facility] Diagnoses Postmenopausal bleeding Procedures ENDOMETRIAL BIOPSY ENDOMETRIAL BX W/WO ENDOCERVIX BX W/O DILAT SPX Vita Wahl APRN.MINISTER ASSISTANT [address] [place] [address] [facility] [address] [place] [address] Referral ID Status Reason Start Date Expiration Date V isits Requested Visits Authorized [id number] Closed Auto-Generate d Referral 08/08/2024 08/08/2025 1 1 Reason Comments Patient Update Reason Comments Follow Up Discuss hysteroscopy Reason Comments Pre-Op Exam Reason Comments Established Patient Care Teams (unrecognized sec tion and content) Food Safety Technician Relationship Specialty Start Date End Date Dayton Bhatia MD [address] [place], [place] [id number] PCP - General Family Practice 05/18/21 Food Safety Technician Relationship Specialty Start Date End Date Dayton Bhatia MD [address] [place] [address] PCP - General Family Practice 05/18/21 Food Safety Technician Relationship Specialty Start Date End Date Dayton Bhatia MD [address] [place] [address] PCP - General Family Practice 05/18/21 Food Safety Technician Relationship Specialty Start Date End Date Dayton Bhatia MD [address] [place] [address], [place] [address] PCP - General Family Practice 05/18/21 Food Safety Technician Relationship Specialty Start Date End Date Dayton Bhatia MD [address] [place] [address] PCP - General Family Practice 05/18/21 Food Safety Technician Relationship Specialty Start Date End Date Dayton Bhatia MD [address] [place] [address] [place] [address] PCP - General Family Practice 05/18/21 Food Safety Technician Relationship Specialty Start Date End Date Dayton Bhatia MD [address] [place] [address] [place] [address] PCP - General Family Practice 05/18/21 Food Safety Technician Relationship Specialty Start Date End Date Dayton Bhatia MD [address] [place] [address] [place] [address] PCP - General Family Practice 05/18/21 Food Safety Technician Relationship Specialty Start Date End Date Dayton Bhatia MD [address] [place] [address] [place] [address] PCP - General Family Practice 05/18/21 Food Safety Technician Relationship Specialty Start Date End Date Dayton Bhatia MD [address] [place] [address] [place] [address] PCP - General Family Practice 05/18/21 Food Safety Technician Relationship Specialty Start Date End Date Dayton Bhatia MD [address] [place] [address] PCP - General Family Practice 05/18/21 Food Safety Technician Relationship Specialty Start Date End Date Dayton Bhatia MD [address] [place] [address] PCP - General Family Practice 05/18/21 Food Safety Technician Relationship Specialty Start Date End Date Dayton Bhatia MD [address] [place] [address] PCP - General Family Medicine 05/18/21 Food Safety Technician Relationship Specialty Start Date End Date Dayton Bhatia MD [address] [place] [address] PCP - General Family Medicine 05/18/21 Food Safety Technician Relationship Specialty Start Date End Date Dayton Bhatia MD [address] [place] [address] PCP - General Family Medicine 05/18/21 Food Safety Technician Relationship Specialty Start Date End Date Dayton Bhatia MD [address] [place] [address] PCP - General Family Medicine 05/18/21 Team Status: Active Member Role Status Dates Dr. Kaley Smith MD Family Provider Active Dr. Dayton Bhatia MD Primary Care Provider Active Team Status: Inactive Member Role Status Dates Dr. Best Arriaga MD Emergency Provider Active Dr. Dayton Bhatia MD Primary Care Provider Active Food Safety Technician Relationship Specialty Start Date End Date Dayton Bhatia MD [address] [place] [id number] PCP - General Family Medicine 05/18/21 Food Safety Technician Relationship Specialty Start Date End Date Dayton Bhatia MD [address] [place] [address] PCP - General Family Medicine 05/18/21 Food Safety Technician Relationship Specialty Start Date End Date Dayton Bhatia MD [address] [place] [address] PCP - General Family Medicine 05/18/21 Food Safety Technician Relationship Specialty Start Date End Date Dayton Bhatia MD [address] [place] [address] PCP - General Family Medicine 05/18/21 Food Safety Technician Relationship Specialty Start Date End Date Dayton Bhatia MD [address] [place] [address] PCP - General Family Medicine 05/18/21 Food Safety Technician Relationship Specialty Start Date End Date Dayton Bhatia MD [address] [place] [address] PCP - General Family Medicine 05/18/21 Food Safety Technician Relationship Specialty Start Date End Date Dayton Bhatia MD [address] [place] [address] PCP - General Family Medicine 05/18/21 Food Safety Technician Relationship Specialty Start Date End Date Dayton Bhatia MD [address] [place] [address] PCP - General Family Medicine 05/18/21 Food Safety Technician Relationship Specialty Start Date End Date Dayton Bhatia MD [address] [place] [address] PCP - General Family Medicine 05/18/21 Food Safety Technician Relationship Specialty Start Date End Date Dayton Bhatia MD [address] [place] [address] PCP - General Family Medicine 05/18/21 Food Safety Technician Relationship Specialty Start Date End Date Dayton Bhatia MD [address] [place] [address] PCP - General Family Medicine 05/18/21 Food Safety Technician Relationship Specialty Start Date End Date Dayton Bhatia MD [address] [place] [address] PCP - General Family Medicine 05/18/21 Food Safety Technician Relationship Specialty Start Date End Date Dayton Bhatia MD [address] [place] [address] PCP - General Family Medicine 05/18/21 Food Safety Technician Relationship Specialty Start Date End Date Dayton Bhatia MD [address] [place] [address] PCP - General Family Medicine 05/18/21 Food Safety Technician Relationship Specialty Start Date End Date Dayton Bhatia MD [address] [place] [address] PCP - General Family Medicine 05/18/21 Food Safety Technician Relationship Specialty Start Date End Date Dayton Bhatia MD [address] [place] [address] PCP - General Family Medicine 05/18/21 Food Safety Technician Relationship Specialty Start Date End Date Dayton Bhatia MD [address] [place] [address] PCP - General Family Medicine 05/18/21 Food Safety Technician Relationship Specialty Start Date End Date Dayton Bhatia MD [address] [place] [address] PCP - General Family Medicine 05/18/21 Food Safety Technician Relationship Specialty Start Date End Date Dayton Bhatia MD [address] [place] [address] PCP - General Family Medicine 05/18/21 Food Safety Technician Relationship Specialty Start Date End Date Dayton Bhatia MD [address] [place] [address] PCP - General Family Medicine 05/18/21 Food Safety Technician Relationship Specialty Start Date End Date Dayton Bhatia MD [address] [place] [address] PCP - General Family Medicine 05/18/21 Food Safety Technician Relationship Specialty Start Date End Date Dayton Bhatia MD [address] [place] [address] PCP - General Family Medicine 05/18/21 Joycelyn Hawk APRN.MINISTER ASSISTANT [address] [place] [address] Medical Review Specialist Family Medicine 07/26/24 Dana Mcdowell PA-C [address] [place] [address] Medical Review Specialist Family Medicine 07/26/24 Food Safety Technician Relationship Specialty Start Date End Date Dayton Bhatia MD [address] [place] [address] PCP - General Family Medicine 05/18/21 Joycelyn Hawk APRN.MINISTER ASSISTANT [address] [place] [address] Medical Review Specialist Family Medicine 07/26/24 Dana Mcdowell PA-C [address] [place] [address] [facility] 07/26/24 Food Safety Technician Relationship Specialty Start Date End Date Dayton Bhatia MD [address] [place] [address] PCP - General Family Medicine 05/18/21 Joycelyn Hawk APRN.MINISTER ASSISTANT [address] [place] [address] [facility] 07/26/24 Dana Mcdowell PA-C [address] [place] [address] [facility] Food Safety Technician Relationship Specialty Start Date End Date Dayton Bhatia MD [address] [place] [address] PCP - General Family Medicine 05/18/21 Joycelyn Hawk APRN.MINISTER ASSISTANT [address] [place] [address] Medical Review Specialist Family Medicine 07/26/24 Dana Mcdowell PA-C [address] [place] [address] [facility] Family Medicine 07/26/24 Food Safety Technician Relationship Specialty Start Date End Date Dayton Bhatia MD [address] [place] [address] PCP - General Family Medicine 05/18/21 Joycelyn Hawk APRN.MINISTER ASSISTANT [address] [place] [address] Medical Review Specialist Family Medicine 07/26/24 Dana Mcdowell PA-C [address] [place] [address] Medical Review Specialist Family Medicine 07/26/24 Food Safety Technician Relationship Specialty Start Date End Date Dayton Bhatia MD [address] [place] [address] PCP - General Family Medicine 05/18/21 Joycelyn Hawk APRN.MINISTER ASSISTANT [address] [place] [address] Medical Review Specialist Family Medicine 07/26/24 Dana Mcdowell PA-C [address] [place] [address] Medical Review Specialist Family Medicine 07/26/24 Food Safety Technician Relationship Specialty Start Date End Date Dayton Bhatia MD [address] [place] [address] PCP - General Family Medicine 05/18/21 Joycelyn Hawk, POLA.MINISTER ASSISTANT [address] [place] [address] Medical Review Specialist Family Medicine 07/26/24 Dana Mcdowell PA-C [address] [place] [address] Medical Review Specialist Family Medicine 07/26/24 Food Safety Technician Relationship Specialty Start Date End Date Dayton Bhatia MD [address] [place] [address] PCP - General Family Medicine 05/18/21 Joycelyn Hawk APRN.MINISTER ASSISTANT [address] [place] [address] [facility] 01/19/25 Dana Mcdowell PA-C [address] [place] [address] [facility] 01/19/25 Food Safety Technician Relationship Specialty Start Date End Date Dayton Bhatia MD [address] [place] [address] PCP - General [facility] 05/18/21 Joycelyn Hawk APRN.MINISTER ASSISTANT [address] [place] [address] [facility] 01/19/25 Dana Mcdowell PA-C [address] [place] [address] [facility] 01/19/25 Team Status: Active Member Role/Relationship Status Dates Dr. Dayton Bhatia MD Primary Care Provider Active Team Status: Inactive Member Role/Relationship Status Dates Dr. Dayton Bhatia MD Primary Care Provider Active Start: March 28, 2025 End: March 28, 2025 Dr. Dayton Bhatia MD Referring Provider Active Start: March 28, 2025 End: March 28, 2025 YAHAIRA Umanzor Attending Provider Active Start: March 28, 2025 End: March 28, 2025 Food Safety Technician Relationship Specialty Start Date End Date Dayton Bhatia MD [address] [place] [address] PCP - General Family Medicine 05/18/21 Joycelyn Hawk APRN.MINISTER ASSISTANT [address] [place], [place] [id number] [facility] 01/19/25 Dana Mcdowell PA-C [address] [place], [place] [address] [facility] 01/19/25 INFORMATION SOURCE (unrecogn ized section and content) DATE CREATED AUTHOR 12/18/2021 [facility] DATE CREATED AUTHOR AUTHOR'S ORGANIZ ATION 07/01/2023 [facility] DATE CREATED AUTHOR AUTHOR'S ORGANIZ ATION 02/09/2024 [facility] DATE CREATED AUTHOR AUTHOR'S ORGANIZ ATION 03/09/2025 [facility] DATE CREATED AUTHOR AUTHOR'S ORGANIZ ATION 03/30/2025 [facility] DATE CREATED AUTHOR AUTHOR'S ORGANIZ ATION 04/01/2025 [facility] Goals (unrecognized section and content) Goals may be documented in a n alternate sectionGoals may be documented in an alternate section FOR RECORDS PERTAINING TO PATIENTS WHO ARE OR HAVE BEEN ENROLLED IN A CHEMICAL DEPENDENCY/SUBSTANCEABUSE PROGRAM, SOME INFORMATION MAY BE OMITTED. This clinical summary was aggregated from multiple sources. Caution should be exercised in using it in the provision of clinical care. This summary normalizes information from multiple sources, and as a consequence, information in this document may materially change the coding, format and clinical context of patient data. In addition, data may be omitted in some cases. CLINICAL DECISIONS SHOULD BE BASED ON THE PRIMARY CLINICAL RECORDS. [employer] [facility]. provides no warranty or guarantee of the accuracy or completeness of information in this document.
[2025-04-02 06:47] LABS: Internal QC Validated? YES +Cl - CLEAR BKGD; Pregnancy, Urine Negative Negative; Record Kit Lot#,Urine Preg 0000962302
[2025-04-02] MEDS: Lactated Ringers 1,000 ML 15 ML IV (06:55)
[2025-04-02 07:19] LABS: Hematocrit 30.4 % (37-47); Hemoglobin 10.1 g/dL (12.0-15.0); Mean Corp Hgb Conc 33.2 g/dL (32-36); Mean Corpuscular Volume 86.4 fL (81-99); Mean Platelet Vol. 9.1 fl (6.2-12.0); Platelet Count 268 K/mm3 (150-450); RBC Distribution Width CV 12.3 % (11.6-14.6); RBC Distribution Width SD 38.6 fl (35.1-43.9); Red Blood Count 3.52 M/mm3 (4.2-5.4); White Blood Count 4.3 K/mm3 (4.4-11.0)
--- NOTE | 2025-04-02 07:25 | PRE.ANES_ITS ---
ASA Classification* ASA Classification ASA Classification: 3 Assessment & Plan Anesthesia* Anesthesia Assessment Anesthesia Assessment: Discussed sedation and/or anesthesia options, risks, benefits, and alternatives with patient/parents/legal guardian/POA. Questions invited. The patient/parents/legal guardian/POA seems to understand and agrees to proceed with anesthesia plan. Reviewed the physical assessment, medical history, allergy history and patient home medications list prior to surgery/procedure/anesthetic and documented any changes. Performed airway and anesthesia risk assessments. Anesthesia Type Anesthesia Type: MAC (General Backup) Anesthesia Focused Assessment* Temperature: 96.9 F Pulse Rate: 63 Blood Pressure: 106/71 Respiratory Rate: 16 Pulse Ox: 99 Airway Assessment Mouth opens: >3 cm Mallampati Score: II Labs Anesthesia Preop lab: CBC WBC 4.3 K/mm3 (4.4-11.0) L 04/02/25 06:30 04/02/25 RBC 3.52 M/mm3 (4.2-5.4) L 04/02/25 06:30 04/02/25 Hgb 10.1 g/dL (12.0-15.0) L 04/02/25 06:30 5 Hct 30.4 % (37-47) L 04/02/25 06:30 04/02/25 Plt Count 268 K/mm3 (150-450) 04/02/25 06:30 04/02/25 CHEMISTRY COAG Urine Test Negative Negative 04/02/25 06:30 04/02/25 Pre-Assessment Diagnosis/Proposed Procedure Planned Operative Procedure(s): Hysteroscopy,D&C, fibroid resection, Symphion Anesthesia History Anesthesia History - architectural project manager: Anesthesia History - architectural project manager Hx Hospitalization No 03/23/25 10:56 Any Problems With Anesthesia No 03/23/25 10:56 Cholinesterase deficiency No 03/23/25 10:56 You/Your Family Experience No 03/23/25 10:56 fever (hyperthermia) with Relationship Recent Exposure to Contagious No 04/02/25 06:39 Disease Does patient have nerve No 03/23/25 10:56 stimulator Patient instructed to have device shut off --Does patient have Pacemaker No 04/02/25 06:39 or ICD? When Was Last Pacemaker Check QUESTION #4 FULL TEXT: You/Your Family Experience fever (hyperthermia) with Anesthesia Last Oral Intake Last Oral intake: Last Oral Intake NPO since 21:00 04/02/25 06:39 Meds taken in AM with sips of water? Meds patient instructed to take am of surgery PONV PONV - architectural project manager: PONV - architectural project manager Female Yes 03/23/25 10:56 HX of Motion Sickness No 03/23/25 10:56 HX of N/V After Surgery No 03/23/25 10:56 Non-Smoker Yes 03/23/25 10:56 Duration of Surgery greater Yes 03/23/25 10:56 than 60 minutes Number of Risk Factors 3 03/23/25 10:56 PONV Score Moderate Risk 03/23/25 10:56 Height & Weight Height & Weight: Anesthesia: Height & Weight Height 5 ft 3 in 04/02/25 06:39 Weight: 66.8 kg 04/02/25 06:39 Body Mass Index (BMI) 26.1 04/02/25 06:39 Respiratory Assessment Respiratory Assessment - architectural project manager: Respiratory Tract Infection Hx - architectural project manager Hx Respiratory Tract Infection No 03/23/25 10:56 STOP Sleep Apnea STOP Sleep Apnea - architectural project manager: STOP Sleep Apnea - architectural project manager Hx Hypertension No 03/23/25 10:56 Hx Sleep Apnea No 03/23/25 10:56 CPAP BIPAP Do you snore loudly (louder No 03/23/25 10:56 than talking or can be heard Do you often feel tired/ No 03/23/25 10:56 fatigued/ sleepy during daytime? Has anyone observed you stop No 03/23/25 10:56 breathing during sleep? STOP Results Negative 03/23/25 10:56 QUESTION #5 FULL TEXT : Do you snore loudly (louder than talking or can be heard through closed doors)? Tobacco Use History Tobacco Use History - architectural project manager: Tobacco Use History - architectural project manager Tobacco Use Smoking Status Never smoker 03/23/25 10:56 Hx Tobacco Use No 03/23/25 10:56 Years Smoking Packs Smoked per Day Smoking Cessation Date was within the last 15 years Hx Smoking Cessation Date Hx Smoking Cessation Counseling Hematologic Medial History Hematologic Hx - architectural project manager: Hematologic Medical Hx - donation specialist Hx of Blood Transfusion No 03/23/25 10:56 Hx of Transfusion in last 3 No 03/23/25 10:56 Months Date of Last Transfusion (if within last 3 months) Ever experience any problems No 03/23/25 10:56 with transfusion(s)? Specify any problems Hx of Preganancy in last 3 No 03/23/25 10:56 Months Nurse Filling Out Transfusion [email or web address] 03/23/25 10:56 & Questions: Date: 03/23/25 03/23/25 10:56 Time: 10:59 03/23/25 10:56 Patient unable to answer at this time (ie. confused, unrespo /Reproduction History /Reproductive History - architectural project manager: /Reproductive Hx- architectural project manager Hx Now No 03/23/25 10:56 Gestational Age (in weeks): EDC: Hx Hx Para Hx Section SAB No 03/23/25 10:56 Active Medications Active Medications: Current Medications Generic Name Dose Route Start Last Admin Trade Name Freq PRN Reason Stop Dose Admin Lactated Ringer's 1,000 mls @ 15 mls/hr 04/02/25 06:15 04/02/25 06:55 IV 15 mls/hr .Q48H AUGUSTINA Administration PFSH Medical History (Updated 03/23/25 @ 11:12 by Key Sellers) Wears glasses Alcohol use High cholesterol Injury of head and neck Heartburn Non-smoker Anemia School physical exam Home Medications ?Medication ?Instructions ?Recorded ?Last Taken ?Type ibuprofen 200 mg capsule 200 mg PO Q8H PRN pain 03/23 Unknown History Allergy/AdvReac Type Severity Reaction Status Date / Time meloxicam Allergy Intermediate Other Verified 04/02/25 06:38 naproxen (From Naprosyn) Allergy Intermediate Other Verified 04/02/25 06:38 Surgical History (Updated 03/23/25 @ 10:56 by Key Sellers) History of colonoscopy Social History Smoking Status: Never smoker Review of Systems (Anesthesia) ROS Narrative System reviewed and no additional complaints, except as documented.
--- NOTE | 2025-04-02 07:30 | EMB_PTH ---
PATIENT: FRANNY [place]ZA [place] [facility] [id number] AGE/SX: 45/F ROOM: RE04/02/[address]: Dr. Estefany Blackwell DO : 1980 BED: DIS: 04/02/2025 SPEC #: [id number] RECD: 04/02/25 09:07 STATUS: JANAE LIZA #: [id number] LATRICE: 04/02/25 07:[address]: Estefany Blackwell DEPT: SURGICAL PATHOLOGY RECD BY: Inocente Alcazar ENTERED: 04/02/25 10:41 SP TYPE: ENDOM BX/C TRACY DR: Dr. Dayton Luke MD Tissues: A - Endometrium, NOS Procedures: Surgery Specimen Level IV HEADER OPERATION: Hysteroscopy, D&C, fibroid resection PRE-OP DIAGNOSIS: Post menopausal bleeding, uterus fibroid TISSUE SUBMITTED: A- Endometrial curettings MICROSCOPIC DIAGNOSIS A. Endometrium, curettage: - Scant superficial glandular mucosa - see note. - Scant squamous cervical mucosa. Note: Most of the specimen is blood clot. A limited amount of crushed tissue is present which may not be a employee's representative sampling; recommend clinical correlation. MICROSCOPIC DESCRIPTION Slides are reviewed. GROSS DESCRIPTION A. Received in formalin labeled with the patient's name and date of . Designated as endometrial curettings is a 1.6 x 0.6 x 0.1 cm aggregate of nguyen-pink to red tissue fragments and a minimal amount of mucoid material. Entirely submitted in 1 cassette. [facility] 04/02/2025 CPT:63439
[2025-04-02] MEDS: Midazolam 2 MG/2 ML Syringe IV (07:46)
[2025-04-02] MEDS: Lidocaine 1% (5 ml sdv) 5 ML Vial 6 ML IV (07:51)
[2025-04-02] MEDS: Lidocaine 2% /Epi 1:100 (20ml) 20 ML VIAL (08:10)
--- NOTE | 2025-04-02 08:23 | PCM.DC ---
Discharge Instructions DC O2, CPAP, BIPAP needs Home O2 Discharge instructions: No Dressing / Incision Discharge Activity: May Not Drive (for 24 hours after procedure) and May Not Shower (for 24 hours after procedure) May resume sexual activity in: 1-2 weeks (nothing in the vagina and no soaking in water while having the bleeding and for 1 week) Lifting Restrictions: none Dressing / Incision Call your doctor if you observe: Fever of 101 or Higher, Using more than 1 pad per hour, Shortness of breath, Dizziness, Chest pain, Increased palpitations (irregular heartbeat), Calf discomfort and Uncontrolled pain Follow Up Care Please Follow Up With: Estefany Blackwell DO When: 1-2 week post op Test Results: Test results from this visit will be discussed in further detail at your follow-up appointment, if applicable. Discharge Plan Admission Primary Reason for Your Visit: surgery Attending Provider: Estefany Blackwell Primary Care Provider: Dayton Luke Instructions Patient Instructions: Dilation and Curettage Print Language: Albanian Discharge Orders/Prescriptions Prescriptions: Continued ibuprofen 200 mg capsule 200 mg PO Q8H PRN (Reason: pain) Referrals / Follow Up: Dayton Luke MD [Primary Care Provider] - Disposition Disposition (needs filled in before D/C Order can be placed): Home, Self Care
--- NOTE | 2025-04-02 08:24 | OP.PCM_ITS ---
Problems Associated Problem List Diagnoses (1) PMB (postmenopausal bleeding): Operative Report (Standard) Operative Information Date of Procedure: 04/02/25 Pre-Operative Diagnosis: PMB Post-Operative Diagnosis: PMB Surgery/Procedure Performed: Hysteroscopy D&C assistant art director: No Type of Anesthesia: MAC RN Documented Start/Stop Times: Operation Date: 04/02/25 07:30 Case Time Into Pre-Op 04/02/25 06:12 Anesthesia Start 04/02/25 07:46 Into Room 04/02/25 07:46 Procedure Start 04/02/25 08:01 Procedure End 04/02/25 08:20 Procedure Start Time: 08:01 Procedure Stop Time: 08:20 Select all DRAINS/GRAFTS/IMPLANTS that apply: None Special Medications: None Estimated Blood Loss: < 20 mL Fluids Replaced: See anethesia record Specimen collected: Yes Description of specimen(s) removed: Endometrial curettings Description of surgery: The patient was taken to the operating room where MAC anesthesia was induced and found to be adequate. She was prepped and draped in the dorsal lithotomy position using yellowfin stirrups. A weighted speculum was placed in the vagina to expose the cervix. The anterior lip of the cervix was grasped with a single- tooth tenaculum. The cervix was stenotic. The cervix was injected with local. The cervix was serially dilated to accommodate the Symphion hysteroscope. The hysteroscope was advanced into the uterus and the uterus was distended with normal saline as distention media. Bilateral tubal ostia were visualized. The fundus of the uterus was distorted. There were no lesions within the uterus. There was no obvious submucosal fibroid noted. There were no polyps noted. The endometrium was atrophic and thin appearing. The hysteroscope was removed. A sharp curettage was performed for scant tissue. The endometrial curettings were sent to pathology for review. All instruments were removed from the vagina. Bleeding was scant. Vaginal sweep was performed. Instrument and sponge counts were correct. The patient was taken to the recovery in stable condition. The fluid deficit was 450 mL. Surgical Findings: Thin and atrophic appearing endometrium Fundus of the uterus with distorted appearing cavity No lesions in the uterus or endocervix Complications Complications: No Admit VTE Documentation VTE Present on Admission: No VTE Mechan Device Prophylaxis: SCD's
== END 2025-04-02 11:22 | disposition home or self-care (01) ==
LOC: SDC 06:06 → AC 06:07
PROVIDERS: Anesthesiology; PCP Family Medicine; Referring Provider Obstetrics & Gynecology; Visit Provider Obstetrics & Gynecology
PROC: 0UB98ZZ Excision of Uterus, Via Natural or Artificial Opening Endoscopic (ICD-10-PCS; CPT 58558; principal; 2025-04-02 07:15)
DX: N85.8 Other specified noninflammatory disorders of uterus (principal); N95.0 Postmenopausal bleeding
CPT/HCPCS: 58558; 00952; 81025; 85027; 86850; 86900; 86901; 88305; J2405